=== PATIENT | female | born 1950 | race Caucasian/White ===

== ENCOUNTER → 2016-08-23 | Outpatient (CLI) | payer MEDICARE ==
[~2016-08-23] MED LIST: /DULO30CA OR; ATEN50TA2; CALCIUM WITH VIT D PO; CLAR5CHW PO; DICL0.1S7 TOP; GABA-282 PO; HYPOTHALAMUS PMG PO; LISI-542; MACR100C3 PO; MAGNESIUM LACTATE PO; MOTR200T4 PO; MULTIVIT PO; MULTIZYME PO; NORCOTAB PO; OMEGA 3 FISH OIL PO; SOMA250T OR; SYMB80AE INH; TYLE167L PO; VICO5TAB16 PO; VITACAP31 PO; VITAMIN B COMPLE1 PO; ZANA2CAP PO; [UNRECOGNIZED DRUG - CODE] PO; [UNRECOGNIZED DRUG - OTHER] PO; [UNRECOGNIZED DRUG - OTHER] PO; [UNRECOGNIZED DRUG - OTHER] PO; [UNRECOGNIZED DRUG - OTHER] PO
[2016-08-23 14:00] LABS: BASO # 0.1 K/mm3 (0.0-0.2); BASO % 1.2 % (0.0-1.0); EOS # 0.1 K/mm3 (0.0-0.50); EOS % 1.8 % (0.0-3.0); LARGE UNSTAINED CELL # 0.2 K/mm3 (0.0-0.4); LARGE UNSTAINED CELL % 2.9 % (0.0-4.0); LYMPH # 1.3 K/mm3 (1.5-4.5); LYMPH % 17.7 % (24.0-44.0); MEAN CORPUSCULAR HEMOGLOBIN 31.7 pg (27.0-33.0); MEAN CORPUSCULAR HGB CONC 32.4 g/dl (32.0-36.5); MEAN CORPUSCULAR VOLUME 97.9 fl (80.0-96.0); MONO # 0.4 K/mm3 (0.0-0.8); MONO % 5.8 % (0.0-5.0); NEUTROPHILS % 70.6 % (36.0-66.0); PLATELET COUNT, AUTOMATED 246 k/mm3 (150-450); RED CELL DISTRIBUTION WIDTH 14.3 % (11.5-14.5)
[2016-08-23 14:35] LABS: ANION GAP 9 MEQ/L (8-16); BLOOD UREA NITROGEN 20 MG/DL (7-18); CALCIUM LEVEL 9.6 MG/DL (8.8-10.2); CARBON DIOXIDE LEVEL 27 MEQ/L (21-32); CHLORIDE LEVEL 104 MEQ/L (98-107); CREATININE FOR GFR 0.91 MG/DL (0.55-1.02); GLOMERULAR FILTRATION RATE > 60.0 (>45); GLUCOSE, FASTING 85 MG/DL (80-110); POTASSIUM SERUM 4.9 MEQ/L (3.5-5.1); SODIUM LEVEL 140 MEQ/L (136-145)
== END ==
LOC: M SMT 11:01
PROVIDERS: ATTEND Podiatrist
DX: Z01.812 Encounter for preprocedural laboratory examination (principal); Z79.899 Other long term (current) drug therapy

== ENCOUNTER → 2016-09-05 | Outpatient (CLI) | payer MEDICARE ==
[~2016-09-05] MED LIST changes: +ALEV220C2 PO; -ATEN50TA2; +ATEN50TA2 PO; +B121000T PO; +CALC600T60 PO; +CLAR10CA3 PO; +FISH100049 PO; +GLUC1CAP9 PO; +IBUP-1114 PO; -MACR100C3 PO; +MACR100C43 PO; +MAGN400C2 PO; +MULTTAB24 PO; +OMEP40CA2 PO; +SYMB80INH INH; +VITA2000 PO; +VITA500C10 PO
--- NOTE | 2016-09-05 15:47 | REPMRS ---
Patient History The patient states she had a clinical breast exam in 09/2016. Patient is postmenopausal, has history of uterine cancer at age 25, and is nulliparous. No known family history of cancer. Took unspecified hormones for 25 years. Digital Woman Screen Mammo: September 05, 2016 - Exam #: [id number] Bilateral CC and MLO view(s) were taken. Technologist: Mary Jo Calvin, Technologist Prior study comparison: July 27, 2015, digital woman screen mammo performed at [facility] to [facility]. March 18, 2014, digital woman screen mammo performed at [place]. April 01, 2013, digital mammo diagnostic bilateral, performed at [facility]. FINDINGS: There are scattered fibroglandular densities. There is a moderate amount of residual fibroglandular tissue which is fairly symmetric. There is no interval development of dominant mass, architectural distortion, or clustered microcalcification typical of malignancy. There has been no change in the appearance of the mammogram from the prior studies. ASSESSMENT: BI-RADS/ACR category 1 mammogram. Negative. Recommendation Routine screening mammogram of both breasts in 1 year (for women over age 40). This mammogram was interpreted with the aid of an FDA-approved computer-aided dectection system. Electronically Signed By: Oscar Alicea MD 09/05/16 9917
== END ==
LOC: M WHC 11:01
PROVIDERS: ATTEND Nurse Practitioner Family
DX: Z12.31 Encounter for screening mammogram for malignant neoplasm of breast (principal); Z85.42 Personal history of malignant neoplasm of other parts of uterus; Z78.0 Asymptomatic menopausal state

== ENCOUNTER → 2016-09-13 | Outpatient (CLI) | payer MEDICARE ==
--- NOTE | 2016-09-13 13:22 | ECGEPIP ---
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 Electronically Signed On 09-13-2016 13:22:16 EDT by Alvarez Trujillo
== END ==
LOC: M EKG 08:25
PROVIDERS: ATTEND Anesthesiology
DX: Z01.810 Encounter for preprocedural cardiovascular examination (principal); I44.7 Left bundle-branch block, unspecified; R94.31 Abnormal electrocardiogram [ECG] [EKG]

== ENCOUNTER → 2016-09-14 | Day surgery (SDC) | payer MEDICARE ==
[~2016-09-14] VITALS: Ht 152.4 cm; Wt 83.5 kg
[~2016-09-14] MED LIST changes: +BACITRACIN PWD 50,000 UNITS VIAL As Ordered ONE; +BUPIVACAINE HCL 0.5% 30 ML VIAL As Ordered ONE; +LIDOCAINE 2% INJ 100 MG/5 ML SDV (FOR ANES.) As Ordered ONE; +LIDOCAINE 2% MDV 20 ML VIAL As Ordered ONE; +LR 1,000 ML IV ONE; +MIDAZOLAM INJ 2 MG/2 ML VIAL (J2250) As Ordered ONE; +NEOSPORIN GU IRRIG 20 ML VIAL As Ordered ONE; +PROPOFOL 200 MG/20 ML VIAL As Ordered ONE; +dexameTHASONE 4 MG/ML 1ML VIAL (J1100) As Ordered ONE; +fentaNYL 100 MCG/2 ML INJECTION (J3010) As Ordered ONE
--- NOTE | 2016-09-14 10:41 | REP ---
RIGHT FOOT, THREE VIEWS: HISTORY: Postop. The patient is status osteotomy of the first metatarsal. Two metal screws are present. There is no acute fracture or dislocation. There is narrowing of the first metatarsal phalangeal joint space. IMPRESSION: The patient is status post osteotomy of the first metatarsal. There is anatomic alignment. Signed by Vishnu Hutchinson MD 09/14/2016 10:57 A
[2016-09-14 11:10] VITALS: BP 168/74
--- NOTE | 2016-09-15 12:12 | RO ---
DATE OF PROCEDURE: 09/14/2016 PREPROCEDURE DIAGNOSIS: Hallux limitus deformity right foot. POSTPROCEDURE DIAGNOSIS: Hallux limitus deformity right foot. OPERATIVE PROCEDURES: 1. Cheilectomy first metatarsophalangeal joint, right foot. 2. Modified Hohmann osteotomy with internal screw fixation, 3.0 x 20 mm times two, right foot. SURGEON: Dr. Adbiel Alberto DPM TUBE REBUILDER: None. ANESTHESIA: Local MAC. IRRIGATION: Dilute bacitracin, neomycin and polymyxin B solution. HEMOSTASIS: Ankle pneumatic tourniquet at 250 mmHg for 46 minutes. DESCRIPTION OF PROCEDURE: On 09/14/2016, this 66-year-old white female was taken from her hospital room to the operating room and placed on the operating table in supine position. Following the induction of IV sedation and local and regional anesthesia, the right lower extremity was prepped and draped in the usual aseptic manner. Attention was directed to the patient's right foot where there is noted to be limited range of motion of the first metatarsophalangeal joint with an abrupt stop. At this time, the following procedure was performed: CHEILECTOMY FIRST METATARSOPHALANGEAL JOINT, RIGHT FOOT: Attention was directed to the patient's right foot where a 6 cm incision was placed over the metatarsophalangeal joint medial to the extensor tendon. The incision was deepened through subcutaneous tissues and all coursing venous tributaries were identified, underscored, clamped, cut, ligated and electrocoagulated as necessary. Linear capsulotomy was performed in the same plane as the original skin incision and the capsule and periosteal structures were then dissected free in one continuous layer dorsally, medially and laterally, thus creating a capsule and periosteal type envelope. This put into view the hypertrophied medial eminence of the first metatarsal and considerable spurring was noted on the dorsal aspect of the first metatarsal. Utilizing a power saw, proximal to dorsal 20% of the cartilage on the first metatarsal was osteotomized from distal to proximal. This left a 2 to 3 mm x 4 mm cystic erosion, which was microfractured with a 0.9 Halley wire. Since range of motion was still limited, the following procedure was performed: HOHMANN OSTEOTOMY WITH MODIFICATION WITH A MEDIAL WEDGE IN PLANTAR FLEXION: The first metatarsal was evaluated and a wedge shaped osteotomy was created, slightly more in the dorsal wing and more on the medial margin, thereby reducing the proximal articular set angle and allowing lowering of the first metatarsal segment. This was then fixated after lateral implant transposition with two 3.0 x 20 mm cannulated compression screws. The osteotomy was noted to be stable in all three cardinal planes. The redundant cortical spike was then osteotomized from dorsal to plantar through and through. Medial and dorsal surfaces were then rasped to a smooth contour with a hand held rasp. The wound was flushed with copious amounts of dilute bacitracin, neomycin and polymyxin B solution. Attention was directed towards closure where the capsular structures were coapted and maintained utilizing #2-0 Monocryl in a simple, interrupted type fashion. Subcutaneous tissues were coapted and maintained utilizing #4-0 Monocryl in simple interrupted type fashion. Skin incisions were coapted and maintained using #5-0 Monocryl in a continuous subcuticular type fashion. This was reinforced with Steri-Strips. Following the completion of the surgical procedure, 4 mg of dexamethasone sodium phosphate was instilled proximal to the surgical site. Attention was then directed towards bandaging where a sterile compression bandage was applied consisting of Adaptic, 4x4s, 4x4 splints, Shyam, Kerlix, and Coban. The ankle pneumatic tourniquet was rapidly deflated and instantaneous capillary filling time was noted in digits 1-5 of the patient's right foot. The patient, apparently having tolerated the surgical procedure well, was taken from the OR to the recovery room with vital signs stable, patient afebrile, for further monitoring by the anesthesia department. All surgical specimens removed during the operative procedure were sent to pathology for gross and microscopic examination. Postoperative instructions will be given upon discharge.
== END | disposition home or self-care (01) ==
LOC: M SDC 07:25
PROVIDERS: ATTEND Podiatrist
DX: M20.5X1 Other deformities of toe(s) (acquired), right foot (principal); M79.671 Pain in right foot; M20.21 Hallux rigidus, right foot; I10 Essential (primary) hypertension; J44.9 Chronic obstructive pulmonary disease, unspecified; J45.909 Unspecified asthma, uncomplicated; E78.5 Hyperlipidemia, unspecified; G57.93 Unspecified mononeuropathy of bilateral lower limbs; G47.33 Obstructive sleep apnea (adult) (pediatric); M19.90 Unspecified osteoarthritis, unspecified site; Z88.1 Allergy status to other antibiotic agents; Z87.891 Personal history of nicotine dependence; Z79.899 Other long term (current) drug therapy
CPT/HCPCS: 28296; 73630; 88300; C1776; J0690; J1100; J2250; J3010

== ENCOUNTER → 2017-05-02 | Outpatient (REF) | payer MEDICARE | LOC: M LAB REF 05-06 15:20 | DX: L08.9 Local infection of the skin and subcutaneous tissue, unspecified (principal) | CPT/HCPCS: 87186 ==

== ENCOUNTER → 2017-10-16 | Outpatient (CLI) | payer MEDICARE | LOC: M WHC 11:00 | DX: Z12.31 Encounter for screening mammogram for malignant neoplasm of breast (principal); N95.8 Other specified menopausal and perimenopausal disorders; Z78.0 Asymptomatic menopausal state; Z92.29 Personal history of other drug therapy | CPT/HCPCS: 77067 ==

== ENCOUNTER → 2018-04-25 | Outpatient (CLI) | payer MEDICARE ==
[~2018-04-25] MED LIST changes: -BACITRACIN PWD 50,000 UNITS VIAL As Ordered ONE; -BUPIVACAINE HCL 0.5% 30 ML VIAL As Ordered ONE; -GABA-282 PO; +GABA-843 PO; -LIDOCAINE 2% INJ 100 MG/5 ML SDV (FOR ANES.) As Ordered ONE; -LIDOCAINE 2% MDV 20 ML VIAL As Ordered ONE; -LR 1,000 ML IV ONE; -MIDAZOLAM INJ 2 MG/2 ML VIAL (J2250) As Ordered ONE; -NEOSPORIN GU IRRIG 20 ML VIAL As Ordered ONE; -PROPOFOL 200 MG/20 ML VIAL As Ordered ONE; -dexameTHASONE 4 MG/ML 1ML VIAL (J1100) As Ordered ONE; -fentaNYL 100 MCG/2 ML INJECTION (J3010) As Ordered ONE
--- NOTE | 2018-04-25 16:16 | REP ---
Low-dose lung screening CT: The study is performed without IV contrast. Images are presented at lung windowing only. There are curvilinear densities in the medial segment right middle lobe and in the lower lobes bilaterally compatible with parenchymal scarring. There is a 15 mm focal density in the deep posterior sulcus of the right lower lobe. No other nodules or masses are identified. Impression: The 15 mm density in the right lower lobe is a category 4A lesion. The probability of malignancy is 5-15%. 3-month follow-up low-dose lung screening CT is recommended. Electronically Signed by José Miguel Ledesma MD 04/25/2018 04:08 P
== END ==
LOC: M RAD 08:23
PROVIDERS: ATTEND Internal Medicine Pulmonary Disease
DX: Z87.891 Personal history of nicotine dependence (principal)

== ENCOUNTER → 2018-05-27 | Outpatient (CLI) | payer MEDICARE ==
--- NOTE | 2018-05-27 16:47 | REP ---
PET/CT: History: Diagnosing solitary pulmonary nodule. Comparisons: Chest CT April 25, 2018. TECHNIQUE: 74 minutes following the intravenous injection of a 8.7 mCi dose of F-18 FDG, three-dimensional PET scintigraphy is acquired from the skull base to the proximal thighs. Triplanar noncontrast CT scanning is acquired through the same anatomic range for attenuation correction, and image registration with scan parameters optimized to minimize radiation exposure to the patient. PET scintigraphy and CT datasets were fused and displayed on a workstation with multiplanar and projection display capability. PET/CT Findings: There is no abnormal hypermetabolic uptake in the chest. The area where previous CT study showed a ill-defined posterior lung sulcus right lower lobe density is medially adjacent to the liver. Maximum standard uptake value here is 2.4 which is not definitely hypermetabolic. No other abnormal hypermetabolic uptake is seen within the chest. No suspicious hypermetabolic uptake is seen in the head and neck soft tissues. There is some non hypermetabolic uptake associated with osteoarthritic facet disease in the cervical spine. In the abdomen and pelvis, normal hepatic, splenic, gastrointestinal, and genitourinary FDG accumulation is seen. There is a hypermetabolic focus of increased uptake in the soft tissue fullness in the region of the anus in the midline. Maximum standard uptake value here is 13.46. This should be correlated with physical examination findings. No other abnormal hypermetabolic uptake is seen. Impression: No abnormal hypermetabolic uptake in the chest. Continued CT follow-up is suggested for possible nodule right lower lobe. Incidental finding of soft tissue fullness and hypermetabolic uptake in the region of the anus. Correlation with physical exam findings recommended. Electronically Signed by Morro Alicea MD 05/27/2018 05:26 P
== END ==
LOC: M PLARAD 09:33
PROVIDERS: ATTEND Internal Medicine Pulmonary Disease
DX: R91.1 Solitary pulmonary nodule (principal); K62.89 Other specified diseases of anus and rectum
CPT/HCPCS: 78815; A9552

== ENCOUNTER → 2018-05-30 | Outpatient (CLI) | payer MEDICARE ==
--- NOTE | 2018-05-31 14:59 | ECHO ---
DATE OF SERVICE: 05/30/2018 REFERRING PROVIDER: Dr. Batres PATIENT LOCATION: Outpatient. REASON FOR THE ECHOCARDIOGRAM: Shortness of breath. 2D MEASUREMENTS: IVS: 1.2 cm LV: 4.2 cm LVPW: 1.2 cm LA: 3.9 cm Aorta: 2.4 cm IVC: 1.8 cm DOPPLER MEASUREMENTS: Peak velocity across the aortic valve: 1.5 m/s Peak velocity across the LVOT: 0.9 m/s Mitral E: 1.0 Mitral A: 1.2, with a ratio of 0.9 2D COMMENTS: 1. Normal left ventricular size, wall thickness, but left ventricular systolic function appeared to be depressed. The basal and the mid anterior septum seem to be markedly hypokinetic. The estimated global left ventricular systolic ejection fraction is 35-40%. 2. Subjectively, the left atrium appeared to be mildly enlarged. Normal right atrium. Normal right ventricle. There appeared to be mildly increased thickness of the left ventricular free wall. 3. The atrial septum appeared to be normal without evidence of defect or shunt. 4. Normal aortic root. 5. No pericardial effusion seen. 6. Minimally calcified aortic valve with normal leaflet excursion. Normal mitral valve, tricuspid valve. The pulmonic valve and proximal pulmonary artery branches were not well visualized. 7. The inferior vena cava was normal in size, central venous pressure is most likely normal. DOPPLER: It detects only trace mitral regurgitation. Abnormal relaxation pattern was noted across the mitral valve leaflets as well as the mitral valve annulus, consistent with delayed relaxation. IMPRESSION: 1. Moderately depressed global left ventricular systolic function with regional wall motion abnormalities consistent with ischemic cardiomyopathy. 2. There are features of left ventricular diastolic dysfunction manifested by abnormal relaxation. 3. Aortic valve sclerosis with trivial aortic stenosis but no aortic regurgitation. 4. Trace mitral regurgitation. Subjectively, the left atrium appeared to be mildly enlarged.
== END ==
LOC: M CARPUL 09:05
PROVIDERS: ATTEND Internal Medicine Pulmonary Disease
DX: R06.00 Dyspnea, unspecified (principal); I08.0 Rheumatic disorders of both mitral and aortic valves

== ENCOUNTER → 2018-08-20 | Outpatient (CLI) | payer MEDICARE ==
[~2018-08-20] MED LIST changes: -/DULO30CA OR; +CYMB1CAP5 OR; +HYDR-3715 PO; -NORCOTAB PO; -VICO5TAB16 PO; +VICO5TAB17 PO
--- NOTE | 2018-08-20 10:21 | REP ---
CT of the chest without IV contrast: Comparison is the low-dose lung screening CT dated 04/25/2018. On the comparison study there was a 15 mm focal density in the deep posterior sulcus of the right lower lobe. On the study today this 15 mm density has resolved and is no longer present. This is compatible with transient atelectasis. The curvilinear densities are again identified in the right middle lobe and in the lower lobes bilaterally compatible with parenchymal scarring. There are no other lung nodules or masses. There are no infiltrates or pleural effusions. There is no mediastinal or axillary lymph node enlargement. In the absence of IV contrast the study is insensitive for hilar lymph node enlargement. The thoracic aorta is unremarkable except for calcified atheroma. Cardiac size is normal. Within the visualized upper abdomen there is focal thickening of the left renal cortex anteriorly of uncertain significance in this study without IV contrast. Consider follow-up CT with IV contrast or ultrasound to evaluate for left renal mass. There are no adrenal mass is identified. Impression: The 15 ml focal density identified in the deep posterior sulcus of the right lower lobe on the comparison chest CT is no longer present. This is compatible with transient atelectasis. There is curvilinear parenchymal lung scarring in the middle lobe and in the lower lobes bilaterally, unchanged. There is focal thickening of the left renal cortex anteriorly, nonspecific as discussed above. Consider follow-up CT with IV contrast or ultrasound for further evaluation to determine if this is a renal mass. Electronically Signed by José Miguel Ledesma MD 08/20/2018 10:13 A
== END ==
LOC: M RAD 08:24
PROVIDERS: ATTEND Internal Medicine Pulmonary Disease
DX: R91.1 Solitary pulmonary nodule (principal)

== ENCOUNTER → 2018-10-06 | Outpatient (CLI) | payer MEDICARE ==
[2018-10-06 12:03] LABS: BLOOD UREA NITROGEN 18 MG/DL (7-18); CREATININE FOR GFR 0.92 MG/DL (0.55-1.30); GLOMERULAR FILTRATION RATE > 60.0 (>39)
== END ==
LOC: M LAB 10:37
PROVIDERS: ATTEND Internal Medicine Pulmonary Disease
DX: Z01.812 Encounter for preprocedural laboratory examination (principal)

== ENCOUNTER → 2018-10-07 | Outpatient (CLI) | payer MEDICARE ==
--- NOTE | 2018-10-07 15:16 | REP ---
REASON FOR THIS EXAM: Prior chest CT shows thickening of the left renal cortex for which this examination was performed in followup. The lack of intravenous contrast significantly decreases the sensitivity of the examination, particularly when assessing for renal malignancies. The lung bases are unchanged from the chest CT of 08/20/2018. Limited evaluation of the solid intra-abdominal organs and gallbladder show no gross abnormalities. Limited evaluation of the pancreas and adrenal glands show no gross abnormalities. Limited evaluation of the kidneys shows a calcification in the interpolar region of the left kidney. There is mild bilateral perinephric stranding, which is nonspecific. There is no hydronephrosis. Limited evaluation of the bowel loops and their mesenteries show no gross abnormalities. There is no free fluid or free air. Limited evaluation of the abdominal aorta and paraaortic regions show no gross abnormalities. CT PELVIS: There is no mass or adenopathy. There is no free fluid or free air. The bowel loops are unremarkable. Bone window technique throughout the exam shows the osseous structures to be within normal limits for the patient's age. IMPRESSION: Limited examination with findings as described above. If a renal lesion is of clinical concern, then a contrast-enhanced examination is recommended. Electronically Signed by Perfecto Santiago DO 10/07/2018 04:14 P
== END ==
LOC: M RAD 13:53
PROVIDERS: ATTEND Internal Medicine Pulmonary Disease
DX: R93.89 Abnormal findings on diagnostic imaging of other specified body structures (principal)

== ENCOUNTER → 2018-10-13 | Outpatient (CLI) | payer MEDICARE ==
[~2018-10-13] MED LIST changes: +GASTROGRAFIN SOLUTION 30ML (Q9963) As Ordered ONE; +ISOVUE-370 76% 100ML VIAL (Q9967) As Ordered ONE
--- NOTE | 2018-10-14 07:42 | REP ---
REASON FOR EXAM: Assess for possible renal lesion. PRIOR: Noncontrast enhanced limited examination of 10/07/2018 was reviewed. Today's examination was performed after the intravenous administration of 100 mL of Isovue 370 along with delayed imaging. There is no change in the lung bases. The liver, gallbladder, spleen, pancreas, adrenal glands, and right kidney are unremarkable. In the interpolar region of the left kidney there is a small 3 to 4 mm sized calculus which is not causing obstructive phenomena and is unchanged from the prior exam. There is minimal anterior nephric stranding on the left and there is a single millimeter sized focal area of decreased density in the inferior pole left renal cortex too small for CT characterization but likely a tiny renal cortical cyst. There are no enhancing renal masses. There is no hydronephrosis or hydroureter. The abdominal aorta and paraaortic regions are within normal limits. There is no free fluid or free air in the abdomen. The bowel loops and their mesenteries are within normal limits. CT PELVIS: There is evidence of a tiny urachal remnant. The urinary bladder is otherwise unremarkable. There are bilateral pelvic phleboliths. There is no free fluid or free air. There is no pelvic mass or adenopathy. Bone window technique throughout the exam show chronic osseous changes with spinal degenerative changes and previous posterior spinal fixation along with bone demineralization. IMPRESSION: There is minimal left anterior perinephric fatty infiltration likely the result of chronic change. There is no evidence of a renal mass. There is a tiny nonobstructing left nephrolith as described above. Incidental likely tiny urachal remnant as described above. No evidence of acute intra-abdominal or intrapelvic disease with other findings as described above. Electronically Signed by Perfecto Santiago DO 10/14/2018 12:00 P
== END ==
LOC: M RAD 13:58
PROVIDERS: ATTEND Internal Medicine Pulmonary Disease
DX: N20.0 Calculus of kidney (principal); R93.89 Abnormal findings on diagnostic imaging of other specified body structures
CPT/HCPCS: 74178; Q9963; Q9967

== ENCOUNTER → 2018-11-11 | Outpatient (CLI) | payer MEDICARE ==
[~2018-11-11] MED LIST changes: +ACET-907 PO; +ALDA25TA2 PO; +ALEV220T22 PO; +ALLE180T33 PO; +ASCO50TA PO; +ATOR1TAB21 PO; +ATOR40TA75 PO; +C 50TAB PO; +CARV12.5 PO; +CARV25TA PO; +CHOL100029 PO; +CLONI1TA PO; +COLA100C5 PO; +CYCL10TA PO; +CYMB1CAP5 PO; +DULO30CA9 PO; +FEXO60CA PO; +FURO40TA2 PO; -GASTROGRAFIN SOLUTION 30ML (Q9963) As Ordered ONE; +GLUCCAP4 PO; +HYDR10TAB PO; -ISOVUE-370 76% 100ML VIAL (Q9967) As Ordered ONE; +LIDO5TD TOP; +LOVE1INJ SC; +MELO15TA28 PO; +OMEP-218 PO; +OMEP1CAP73 PO; -OMEP40CA2 PO; +OMEP40CA97 PO; +OXYC-517 PO; +OYST1TAB PO; +SENN8.6T58 PO; +SM HTAB3 PO; +SPIR-10 PO; +TIZA4TAB4 PO; +TRAM50TA2 PO; +VITA100066 PO
--- NOTE | 2018-11-11 13:56 | REPMRS ---
Patient History The patient states she had a clinical breast exam in 11/2018. Patient is postmenopausal, has history of endometrial cancer at age 25, and is nulliparous. No known family history of cancer. Took unspecified hormones for 25 years. 3D TOMOSYNTHESIS WAS PERFORMED. The [facility] lifetime risk for breast cancer is 4.5%. Digital Woman Screen Mammo: November 11, 2018 - Exam #: [id number] Bilateral CC and MLO view(s) were taken. Technologist: Mary Jo Calvin, Technologist Prior study comparison: October 16, 2017, bilateral digital woman screen mammo performed at [facility]. September 05, 2016, digital woman screen mammo performed at [facility]. FINDINGS: There are scattered fibroglandular densities. There has been no change in the appearance of the mammogram from the prior studies. There is a mild amount of residual fibroglandular tissue which is fairly symmetric. There is no interval development of dominant mass, architectural distortion, or clustered microcalcification suggestive of malignancy. Assessment: BI-RADS/ACR category 1 mammogram. Negative Mammogram. Recommendation Routine screening mammogram in 1 year (for women over age 40). This mammogram was interpreted with the aid of an FDA-approved computer-aided dectection system. Electronically Signed By: José Miguel Landin MD 11/11/18 [id number]
== END ==
LOC: M WHC 10:41
PROVIDERS: ATTEND Nurse Practitioner Family
DX: Z12.31 Encounter for screening mammogram for malignant neoplasm of breast (principal); Z78.0 Asymptomatic menopausal state; Z85.44 Personal history of malignant neoplasm of other female genital organs; Z92.29 Personal history of other drug therapy

== ENCOUNTER 2018-11-19 12:56 | Day surgery (SDC) | payer MEDICARE ==
[~2018-11-19] VITALS: Ht 152.4 cm; Wt 84.3 kg
[~2018-11-19 12:56] MED LIST changes: -ACET-907 PO; -ALDA25TA2 PO; -ASCO50TA PO; -ATOR1TAB21 PO; -C 50TAB PO; -CARV12.5 PO; -CHOL100029 PO; -COLA100C5 PO; -CYMB1CAP5 PO; -FEXO60CA PO; -LIDO5TD TOP; -LOVE1INJ SC; -MELO15TA28 PO; +NS 1,000 ML IV SCH; -OMEP-218 PO; -OMEP1CAP73 PO; +OMEP20CA4 PO; +OMEP40CA2 PO; -OMEP40CA97 PO; -OXYC-517 PO; -OYST1TAB PO; -SENN8.6T58 PO; -SPIR-10 PO; -TIZA4TAB4 PO; -TRAM50TA2 PO; -VITA100066 PO
[2018-11-19] MEDS ORDERED: LIDOCAINE 2% INJ 100 MG/5 ML SDV (FOR ANES.) As Ordered ONE (15:09)
[2018-11-19] MEDS ORDERED: PROPOFOL 200 MG/20 ML VIAL As Ordered ONE (15:09)
--- NOTE | 2018-11-19 15:20 | ROOR ---
Patient Name: Mariah Brito Procedure Date: 11/19/2018 3:01 PM Date of : 1950 Age: 68 Room: [facility] Gender: Female Note Status: Finalized Procedure: Total Colonoscopy to Cecum Indications: Abnormal PET scan of the GI tract Providers: Jamie Roman MD Referring MD: Enoc Carmona MD Requesting Provider: Medicines: Monitored Anesthesia Care Complications: No immediate complications. Procedure: Pre-Anesthesia Assessment: - The heart rate, respiratory rate, oxygen saturations, blood pressure, adequacy of pulmonary ventilation, and response to care were monitored throughout the procedure. The Colonoscope was introduced through the anus and advanced to the cecum, identified by appendiceal orifice and ileocecal valve. The colonoscopy was performed without difficulty. The patient tolerated the procedure well. The quality of the bowel preparation was excellent. Findings: The perianal and digital rectal examinations were normal. Non-bleeding internal hemorrhoids were found during retroflexion. The hemorrhoids were small and Grade I (internal hemorrhoids that do not prolapse). No other significant abnormalities were identified in a careful examination of the remainder of the colon. The exam was otherwise without abnormality. A single (solitary) ulcer was found at the ileocecal valve. No bleeding was present. Impression: - Non-bleeding internal hemorrhoids. - The examination was otherwise normal. - A single (solitary) ulcer at the ileocecal valve. - No specimens collected. - The exam was otherwise normal to the cecum. Recommendation: - Patient has a contact number available for emergencies. The signs and symptoms of potential delayed complications were discussed with the patient. Return to normal activities tomorrow. Written discharge instructions were provided to the patient. - High fiber diet. - Discharge patient to home. - Continue present medications. - Repeat colonoscopy for symptoms only. - Return to referring physician. - The findings and recommendations were discussed with the patient's family. Jamie Roman MD Jamie Roman MD 11/19/2018 3:19:37 PM Electronically signed by Jamie Roman MD Number of Addenda: 0 Note Initiated On: 11/19/2018 3:01 PM Estimated Blood Loss: Estimated blood loss: none.
[2018-11-19 15:40] VITALS: BP 187/104
[2018-11-19] MEDS ORDERED: DESFLURANE 240 ML INHALANT As Ordered ONE (21:52)
== END 2018-11-19 15:54 | disposition home or self-care (01) ==
LOC: M OPP 12:56
PROVIDERS: ATTEND Internal Medicine Gastroenterology
DX: K64.0 First degree hemorrhoids (principal); K63.3 Ulcer of intestine; F17.210 Nicotine dependence, cigarettes, uncomplicated; Z79.899 Other long term (current) drug therapy; Z88.0 Allergy status to penicillin; Z88.8 Allergy status to other drugs, medicaments and biological substances

== ENCOUNTER 2019-02-11 13:41 | Inpatient (IN) | payer MEDICARE ==
[~2019-02-11] VITALS: Ht 142.2 cm; Wt 83.0 kg
[2019-02-11] MEDS: DULoxetine 30 MG CAP (CYMBALTA) PO SCH (09:00)
[~2019-02-11 13:41] MED LIST changes: -NS 1,000 ML IV SCH; +OMEP-172 PO; -OMEP20CA4 PO; -OMEP40CA2 PO; +OMEP40CA97 PO
[2019-02-11 15:00] VITALS: BP 135/58
[2019-02-11] MEDS ORDERED: oxyCODONE 5MG TAB As Ordered ONE (15:10)
[2019-02-11] MEDS ORDERED: oxyCODONE 5MG TAB PO ONE (16:00)
[2019-02-11] MEDS ORDERED: traMADol 50 MG TAB PO ONE (16:45)
[2019-02-11] MEDS ORDERED: traMADol 50 MG TAB PO PRN (16:45)
[2019-02-11] MEDS ORDERED: MOM 30ML SUSPENSION UDC PO PRN (16:45)
[2019-02-11] MEDS ORDERED: ONDANSETRON 4 MG TAB (S0181) PO PRN (16:45)
[2019-02-11] MEDS ORDERED: SPIR-10 PO (16:58)
[2019-02-11] MEDS ORDERED: OYST1TAB PO (16:58)
[2019-02-11] MEDS ORDERED: VITA100066 PO (16:58)
[2019-02-11] MEDS ORDERED: LIDO5TD TOP (16:58)
[2019-02-11] MEDS ORDERED: ACET-907 PO (16:58)
[2019-02-11] MEDS ORDERED: LOVE1INJ SC (16:58)
[2019-02-11] MEDS ORDERED: SENN8.6T58 PO (16:58)
[2019-02-11] MEDS ORDERED: OXYC-517 PO (16:58)
[2019-02-11] MEDS ORDERED: MELO15TA28 PO (16:58)
[2019-02-11] MEDS ORDERED: COLA100C5 PO (16:58)
[2019-02-11] MEDS ORDERED: C 50TAB PO (16:58)
[2019-02-11] MEDS: traMADol 50 MG TAB PO SCH (17:00)
[2019-02-11] MEDS: tiZANidine 4 MG TAB PO SCH ×2 (18:42→21:46)
[2019-02-11] MEDS ORDERED: PILL CUTTER 1 EACH XX PRN (19:00)
[2019-02-11] MEDS: SENNA 8.6 MG TAB (SENOKOT) PO SCH (21:00)
[2019-02-11] MEDS: DOCUSATE SODIUM 100 MG CAP PO SCH (21:00)
[2019-02-11] MEDS: **hydrALAZINE** 10 MG TAB PO SCH (21:46)
[2019-02-11] MEDS: GABAPENTIN 300 MG CAP PO SCH (21:46)
[2019-02-11] MEDS: CARVedilol 12.5 MG TAB PO SCH (21:46)
[2019-02-11] MEDS: ACETAMINOPHEN 500 MG TAB PO SCH (21:47)
[2019-02-12 05:50] VITALS: BP 176/74
[2019-02-12] MEDS: traMADol 50 MG TAB PO SCH ×3 (06:14→17:12)
[2019-02-12] MEDS: tiZANidine 4 MG TAB PO SCH ×4 (06:14→20:31)
[2019-02-12 06:48] LABS: BASO % 0.4 % (0.0-1.0); EOS # 0.1 10^3/uL (0.0-0.5); EOS % 1.4 % (0.0-3.0); HEMATOCRIT 28.6 % (36.0-47.0); HEMOGLOBIN 9.4 g/dl (12.0-15.5); LYMPH % 11.4 % (24.0-44.0); MEAN CORPUSCULAR HEMOGLOBIN 29.9 pg (27.0-33.0); MEAN CORPUSCULAR HGB CONC 32.9 g/dl (32.0-36.5); MEAN CORPUSCULAR VOLUME 91.1 fl (80.0-96.0); MONO # 0.9 10^3/uL (0.0-0.8); MONO % 10.9 % (0.0-5.0); NEUTROPHILS # 6.5 10^3/uL (1.5-8.5); NEUTROPHILS % 75.7 % (36.0-66.0); PLATELET COUNT, AUTOMATED 244 10^3/uL (150-450); RED BLOOD COUNT 3.14 10^6/uL (4.00-5.40); WHITE BLOOD COUNT 8.6 10^3/uL (4.0-10.0)
[2019-02-12 07:13] LABS: ALBUMIN 2.5 GM/DL (3.2-5.2); ALT/SGPT 15 U/L (12-78); BILIRUBIN,TOTAL 0.4 MG/DL (0.2-1.0); BLOOD UREA NITROGEN 8 MG/DL (7-18); CALCIUM LEVEL 8.8 MG/DL (8.8-10.2); CARBON DIOXIDE LEVEL 30 MEQ/L (21-32); CHLORIDE LEVEL 99 MEQ/L (98-107); CREATININE FOR GFR 0.62 MG/DL (0.55-1.30); GLOMERULAR FILTRATION RATE > 60.0 (>39); GLUCOSE, FASTING 85 MG/DL (70-100); POTASSIUM SERUM 3.6 MEQ/L (3.5-5.1); SODIUM LEVEL 137 MEQ/L (136-145); TOTAL PROTEIN 7.1 GM/DL (6.4-8.2)
[2019-02-12] MEDS: VITAMIN D 1,000 INTERNATIONAL UNITS TABLET PO SCH (09:31)
[2019-02-12] MEDS: FUROSEMIDE 40 MG TAB PO SCH (09:31)
[2019-02-12] MEDS: ACETAMINOPHEN 500 MG TAB PO SCH ×3 (09:31→20:32)
[2019-02-12] MEDS: ENOXAPARIN 40 MG/0.4 ML SYRINGE (J1650) SC SCH (09:31)
[2019-02-12] MEDS: GABAPENTIN 300 MG CAP PO SCH ×3 (09:32→20:32)
[2019-02-12] MEDS: DOCUSATE SODIUM 100 MG CAP PO SCH ×2 (09:32→20:04)
[2019-02-12] MEDS: MULTIVITAMINS/MINERALS THERAP 1 TAB PO SCH (09:32)
[2019-02-12] MEDS: FEXOFENADINE 60 MG TAB PO SCH (09:32)
[2019-02-12] MEDS: ASCORBIC ACID 500 MG TAB PO SCH (09:32)
[2019-02-12] MEDS: **hydrALAZINE** 10 MG TAB PO SCH ×3 (09:32→20:32)
[2019-02-12] MEDS: OMEPRAZOLE 20 MG CAP PO SCH (09:33)
[2019-02-12] MEDS: CARVedilol 12.5 MG TAB PO SCH ×2 (09:33→20:32)
[2019-02-12] MEDS: SPIRONOLACTONE 25 MG TAB PO SCH (09:33)
[2019-02-12] MEDS: ATORVASTATIN 20 MG TAB PO SCH (09:33)
[2019-02-12] MEDS: DULoxetine 30 MG CAP (CYMBALTA) PO SCH (09:33)
--- NOTE | 2019-02-12 11:40 | HPEPDOC ---
Screedman/Laborer Note DATE OF ADMISSION: 02/11/19 date of service 02-11-19 SOURCE OF ADMISSION INFORMATION: [facility] records and patient CHIEF COMPLAINT: spinal stenosis HISTORY OF PRESENT ILLNESS: 68F pmh chronic low back pain with neurogenic claudication s/p multi-level lumbar interspinous spacers placed 2011, CHF, HLD, HTN, Uterine cancer, VICKY on CPAP, COPD, CAD with worsening weakness in her legs and pain, admitted to [facility] on 02-06-19 for spinal stenosis. MRI underwent an L1-S1 decompression and fusion on 02-06-19. Patient had post-op anemia and difficulty managing her pain. Wound vac was initially placed on her incision then changed to gauze dressing. She was evaluated by therapy and found to have impairments in mobility and ADLs and deemed medically appropriate for discharge to ARU on 02-11-19. On initial eval patient reports her radiating leg pain is better since the surgery and that she is mostly having low back and upper thigh spasms now. She reports a burning with urination. REVIEW OF SYSTEMS: The following is a completed review of systems and has been reviewed. Review of systems otherwise unremarkable. PAIN: Patient self reports bilat upper thigh spasms EYES: No recent vision changes EARS, NOSE, & THROAT: No throat pain, or dysphagia, or rhinorrhea CARDIOVASCULAR: Denies chest pain or palpitations PULMONARY: Denies shortness of breath GASTROINTESTINAL: Denies constipation/diarrhea GENITOURINARY: +dysuria MUSCULOSKELETAL: bilat LE pain NEUROLOGICAL:neurogenic claudication (chronic) HEMATOLOGICAL: denies easy bruising SKIN: surgical incision PSYCHIATRIC: Unremarkable All other review of systems found to be negative. PAST MEDICAL HISTORY: as per HPI PAST SURGICAL HISTORY: Bilateral foot surgery, oophorectomy, hysterectomy, tonsillectomy, carpal tunnel ALLERGIES: Please see below. MEDICATIONS: Please see below. FAMILY HISTORY: Cardiac, stroke, COPD, cancer SOCIAL HISTORY: Quit smoking 3 years ago, +ETOH use, denies illicit dugs DIET: consistent carb, low salt, fluid restrict PHYSICAL EXAMINATION: VITAL SIGNS: Please see below. GENERAL: Pleasant and cooperative. No acute distress. obese HEENT: PERRL. Extraocular movements intact. Clear conjunctiva CARDIOVASCULAR: Regular rate and rhythm. No murmurs, rubs, or gallops LUNGS: Clear to auscultation bilaterally. No wheezes. No rhonchi ABDOMEN: Soft, nontender, nondistended. Positive bowel sounds. Normal active bowel sounds NEUROLOGICAL: Alert and oriented times three. Cranial nerves II through XII grossly intact. Sensation grossly intact in all 4 extremities, decrease in se nsation bilat lateral upper thighs EXTREMITIES: 5\5 strength bilateral upper extremities. 5\5 strength right knee extension, ankle DF. EHL,a nd PF (hip flexion >3/5 limited by pain). 5/5 strength in left knee extension, ankle DF. EHL, and PF (hip flexion >3/5 limited by pain). SKIN: back surgical incision with dressing, fely-wound without induration or erythema LABORATORY DATA: Please see below. IMAGING:Imaging documentation personally reviewed by record FUNCTIONAL STATUS: Premorbid: Independent with all activities of daily life as well as mobility without AD occasional cane for community distances On Admission: Mod assistance for bathing, upper body dressing, bed chair and wheelchair transfers, toilet transfers, ambulation. GOALS:Mod-I for ambulation community distance, stairs, functional transfers, dressing, bathing, toileting, medical optimization, caregiver training, assess for DME needs ASSESSMENT:68-year-old F with past medical history of chronic low back pain, CHF, obesity who presents status post L1-S1 decompression and fusion. PLAN: 1. Rehab- PT- advance gait training, maintain spinal precautions, OT- advance ADL, provide adaptive equipment for spinal precautions, energy conservation 2. Neuro: no active issues 3. CArdiac: hx CHF, c/u lasix and spironolactone, will fluid restrict to 1800cc -HTN c/u beta-gold and hydralazine, medicine consulted to assist in management -HLD c/u statin 4. Resp: hx VICKY on CPAP, hx COPD will order DUonebs prn, encourage incentive spirometry 5. Pain: will increase Cymbalta to 60mg daily, tramadol, and tizanidine -c/u gabapentin 6. : monitor PVRs, will order UA as patient with dysuria 7. GI ppx: omeprazole 8. DVT ppx: lovenox 9. Dispo: TBD POST ADMISSION PHYSICIAN EVALUATION: Medical and functional status: Description of medical status, medical assessment: As above. Rehabilitation diagnosis and current and prior cold morbid medical conditions as above. Risk of complications and plans to mitigate them as above. Description of functional status current status is as above. Prior status as above. Status compared to preadmission: There are no clinically significant differences between the patient's current status and the information described on the preadmission screening document. Treatment plan anticipated: Treatment plan is as described above. Required disciplines including physical therapy, occupational therapy, others as noted above Intensity of services: 3 hours a day, 6 days a week. Special considerations: There are no specific special or safety considerations that would likely preclude immediate implementation of an intensive rehabilitation program or subsequently influence the plan of care ATTESTATION: Considering all the information above, it is my best judgment that this patient requires intensive rehabilitation therapy as described above and an inpatient hospital environment due to the complexity of nursing, medical, and rehabilitation needs required by the patient. Furthermore, this patient can reas onably be expected to participate in an benefit from an inpatient rehabilitation stay with an interdisciplinary team approach to the delivery of rehabilitation care under the direction and supervision of rehabilitation physician PROGNOSIS: Excellent ESTIMATED LENGTH OF STAY:14-18 ays. PROJECTED DISCHARGE DESTINATION: Home with family support and any durable medical equipment required to increase functional safety and mobility TIME SPENT COUNSELING AND COORDINATING INITIAL CARE: Greater than 70 minutes. Vital Signs Vital Sign - Last 24 Hours 02/11/19 02/11/19 02/11/19 02/11/19 15:00 15:15 15:45 17:00 Temp 97.8 Pulse 100 Resp 18 20 18 18 B/P (MAP) 135/58 (83) Pulse Ox 92 O2 Delivery Room Air Room Air Room Air Room Air 02/11/19 02/11/19 02/12/19 02/12/19 17:21 21:46 05:50 06:14 Temp 98.0 Pulse 95 86 Resp 18 18 18 B/P (MAP) 146/65 176/74 (108) Pulse Ox 95 O2 Delivery Room Air Room Air 02/12/19 02/12/19 02/12/19 09:32 09:33 11:05 Pulse 86 Resp 18 B/P (MAP) 176/74 176/74 Laboratory Data CBC/BMP Laboratory Tests 02/12/19 06:31 Labs 24H Laboratory Tests 2 02/12/19 06:31: Immature Granulocyte % (Auto) 0.2, Neutrophils (%) (Auto) 75.7H, Lymphocytes (%) (Auto) 11.4L, Monocytes (%) (Auto) 10.9H, Eosinophils (%) (Auto) 1.4, Basophils (%) (Auto) 0.4, Neutrophils # (Auto) 6.5, Lymphocytes # (Auto) 1.0L, Monocytes # (Auto) 0.9H, Eosinophils # (Auto) 0.1, Basophils # (Auto) 0.0, Nucleated Red Blo od Cells % (auto) 0.0, Anion Gap 8, Glomerular Filtration Rate > 60.0, Calcium Level 8.8, Total Bilirubin 0.4, Aspartate Amino Transf (AST/SGOT) 30, Alanine Aminotransferase (ALT/SGPT) 15, Alkaline Phosphatase 97, Total Protein 7.1, Albumin 2.5L, Albumin/Globulin Ratio 0.54L Home Medications Scheduled Ascorbic Acid (Vitamin C) 500 Mg Tablet, 500 MG PO DAILY, (Reported) Atorvastatin Calcium (Atorvastatin Calcium) 40 Mg Tablet, 40 MG PO DAILY, (Reported) Calcium Carbonate (Calcium) 500 Mg Tablet, 500 MG PO BID, (Reported) Carvedilol (Carvedilol) 25 Mg Tablet, 25 MG PO BID, (Reported) Cholecalciferol (Vitamin D3) (Vitamin D3) 1,000 Unit Tablet, 1,000 UNIT PO DAILY, (Reported) Docusate Sodium (Colace) 100 Mg Capsule, 100 MG PO BID, (Reported) STARTED AT [facility] Duloxetine Hcl (Duloxetine HCl) 30 Mg Capsule.dr, 30 MG PO QHS, (Reported) Enoxaparin Sodium (Lovenox) 40 Mg/0.4 Ml Syringe, 40 MG SC DAILY, (Reported) STARTED AT [facility] Fexofenadine HCl (Joseline Allergy) 180 Mg Tablet, 180 MG PO DAILY, (Reported) Furosemide (Furosemide) 40 Mg Tablet, 40 MG PO DAILY, (Reported) Gabapentin (Gabapentin) 300 Mg Capsule, 300 MG PO TID, (Reported) Glucosam/Chond/Collagen/Hyalur (Glucosamine Chondroitin Cap) 1 Each Capsule, 2 CAP PO DAILY, (Reported) Hydralazine HCl (Hydralazine HCl) 10 Mg Tablet, 10 MG PO TID, (Reported) Lidocaine (Lidocaine) 5% Adh..patch, 1 PATCH TOP QPM, (Reported) STARTED AT [facility] - APPLY TO BACK Meloxicam (Meloxicam) 15 Mg Tablet, 15 MG PO DAILY, (Reported) Multivitamin with Minerals (Hair, Skin and Nails) 1 Each Tablet, 4 TAB PO DAILY, (Reported) Mv,Calcium,Min/Iron/Folic/Vitk (Multi For Her Tablet) 1 Tab Tab, 1 TAB PO QAM, (Reported) Omeprazole (Omeprazole) 20 Mg Capsule.dr, 20 MG PO DAILY, (Reported) Spironolactone (Spironolactone) 25 Mg Tablet, 25 MG PO DAILY, (Reported) Scheduled PRN Acetaminophen (Tylenol) 325 Mg Tablet, 650 MG PO Q6H PRN for PAIN, (Reported) Cyclobenzaprine HCl (Cyclobenzaprine HCl) 10 Mg Tablet, 10 MG PO TID PRN for MUSCLE SPASMS, (Reported) Naproxen Sodium (Aleve) 220 Mg Tablet, 220 MG PO PRN PRN for PAIN, (Reported) Oxycodone HCl (Oxycodone HCl) 5 Mg Tablet, 5 MG PO Q4H PRN for MILD PAIN (PS 1- 4), (Reported) STARTED AT [facility] Oxycodone HCl (Oxycodone HCl) 5 Mg Tablet, 10 MG PO Q4H PRN for SEVERE PAIN (PS 8-10), (Reported) STARTED AT [facility] Sennosides (Senna) 8.6 Mg Tablet, 2 TAB PO QHS PRN for CONSTIPATION, (Reported) STARTED AT [facility] Allergies Coded Allergies: erythromycin base (Verified Allergy, Severe, ANAPHYLAXIS, 11/12/18) MARY LOU Inhibitors (Verified Allergy, Unknown, WAS TOLD BY HER MATERIAL PLANNER THIS IS RELATED TO ERYTHROMYCIN, 02/11/19) isosorbide (Verified Adverse Reaction, Mild, headache, 11/12/18) A-FIB/CHADSVASC A-FIB History Current/History of A-Fib/PAF?: No GENA BERMUDEZ MD Feb 12, 2019 11:40
--- NOTE | 2019-02-12 11:41 | IPNPDOC ---
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 REVIEW OF SYSTEMS: The following is a completed review of systems and has been reviewed. Review of systems otherwise unremarkable. PAIN: Patient self reports bilat upper thigh spasms EYES: No recent vision changes EARS, NOSE, & THROAT: No throat pain, or dysphagia, or rhinorrhea CARDIOVASCULAR: Denies chest pain or palpitations PULMONARY: Denies shortness of breath GASTROINTESTINAL: Denies constipation/diarrhea GENITOURINARY: +dysuria MUSCULOSKELETAL: bilat LE pain NEUROLOGICAL:neurogenic claudication (chronic) HEMATOLOGICAL: denies easy bruising SKIN: surgical incision PSYCHIATRIC: Unremarkable All other review of systems found to be negative. PHYSICAL EXAMINATION: VITAL SIGNS: Please see below. GENERAL: Pleasant and cooperative. No acute distress. obese HEENT: PERRL. Extraocular movements intact. Clear conjunctiva CARDIOVASCULAR: Regular rate and rhythm. No murmurs, rubs, or gallops LUNGS: Clear to auscultation bilaterally. No wheezes. No rhonchi ABDOMEN: Soft, nontender, nondistended. Positive bowel sounds. Normal active bowel sounds NEUROLOGICAL: Alert and oriented times three. Cranial nerves II through XII grossly intact. Sensation grossly intact in all 4 extremities, decrease in sensation bilat lateral upper thighs EXTREMITIES: 5\5 strength bilateral upper extremities. 5\5 strength right knee extension, ankle DF. EHL,a nd PF (hip flexion >3/5 limited by pain). 5/5 strength in left knee extension, ankle DF. EHL, and PF (hip flexion >3/5 limited by pain). SKIN: back surgical incision with dressing, fely-wound without induration or erythema ASSESSMENT:68-year-old F with past medical history of chronic low back pain, CHF, obesity who presents status post L1-S1 decompression and fusion. PLAN: 1. Rehab- PT- advance gait training, maintain spinal precautions, ambulating with RW OT- advance ADL, provide adaptive equipment for spinal precautions, energy conservation 2. Neuro: no active issues 3. CArdiac: hx CHF, c/u lasix and spironolactone, c/u restrict to 1800cc -HTN c/u beta-gold and hydralazine, medicine consulted to assist in management -HLD c/u statin 4. Resp: hx VICKY on CPAP, hx COPD -DUonebs prn, encourage incentive spirometry 5. Pain: increased Cymbalta to 60mg daily, c/u tramadol, and tizanidine -c/u gabapentin 6. : monitor PVRs, UA pending collection 7. GI ppx: omeprazole 8. DVT ppx: lovenox 9. Dispo: tentatively 02-20-19 to home Allergies Coded Allergies: erythromycin base (Verified Allergy, Severe, ANAPHYLAXIS, 11/12/18) MARY LOU Inhibitors (Verified Allergy, Unknown, WAS TOLD BY HER ACREAGE REPORTER THIS IS RELATED TO ERYTHROMYCIN, 02/11/19) isosorbide (Verified Adverse Reaction, Mild, headache, 11/12/18) Vital Signs Vital Signs Date Time Temp Pulse Resp B/P (MAP) Pulse Ox O2 Delivery O2 Flow Rate FiO2 02/12/19 11:05 18 02/12/19 09:33 86 176/74 02/12/19 05:50 98.0 95 Room Air Laboratory Data CBC/BMP Laboratory Tests 02/12/19 06:31 Labs 24H Laboratory Tests 2 02/12/19 06:31: Immature Granulocyte % (Auto) 0.2, Neutrophils (%) (Auto) 75.7H, Lymphocytes (%) (Auto) 11.4L, Monocytes (%) (Auto) 10.9H, Eosinophils (%) (Auto) 1.4, Basophils (%) (Auto) 0.4, Neutrophils # (Auto) 6.5, Lymphocytes # (Auto) 1.0L, Monocytes # (Auto) 0.9H, Eosinophils # (Auto) 0.1, Basophils # (Auto) 0.0, Nucleated Red Blood Cells % (auto) 0.0, Anion Gap 8, Glomerular Filtration Rate > 60.0, Calcium Level 8.8, Total Bilirubin 0.4, Aspartate Amino Transf (AST/SGOT) 30, Alanine Aminotransferase (ALT/SGPT) 15, Alkaline Phosphatase 97, Total Protein 7.1, Albumin 2.5L, Albumin/Globulin Ratio 0.54L Current Medications Current Medications Current Medications Medications (Trade) Dose Ordered Sig/Barbara Route PRN Reason Start Time Stop Time Status Last Admin Dose Admin Acetaminophen (Tylenol Tab) 1,000 mg TID PO 02/11/19 21:00 02/12/19 09:31 Ascorbic Acid (Vitamin C) 1,000 mg DAILY PO 02/12/19 09:00 02/12/19 09:32 Atorvastatin Calcium (Lipitor) 40 mg DAILY PO 02/12/19 09:00 02/12/19 09:33 Carvedilol (COReg) 25 mg BID PO 02/11/19 21:00 02/12/19 09:33 Docusate Sodium (Colace) 100 mg BID PO 02/11/19 21:00 02/12/19 09:32 Duloxetine HCl (Cymbalta) 60 mg DAILY PO 02/11/19 09:00 02/12/19 09:33 Enoxaparin Sodium (Lovenox) 40 mg DAILY SC 02/12/19 09:00 02/12/19 09:31 Fexofenadine HCl (Joseline) 180 mg DAILY PO 02/12/19 09:00 02/12/19 09:32 Furosemide (Lasix) 40 mg DAILY PO 02/12/19 09:00 02/12/19 09:31 Gabapentin (Neurontin) 300 mg TID PO 02/11/19 21:00 02/12/19 09:32 Home Med (Med Rec Complete!) ASDIRECTED XX 02/11/19 17:00 02/11/19 17:23 DC Hydralazine HCl (Apresoline) 10 mg TID PO 02/11/19 21:00 02/12/19 09:32 Magnesium Hydroxide (Milk Of Magnesia) 30 ml DAILYPRN PRN PO CONSTIPATION 02/11/19 16:45 Multivitamins (Theragram-M) 1 tab DAILY PO 02/12/19 09:00 02/12/19 09:32 Omeprazole (PriLOSEC) 20 mg DAILY PO 02/12/19 09:00 02/12/19 09:33 Ondansetron HCl (Zofran) 4 mg Q6HP PRN PO NAUSEA 02/11/19 16:45 Senna (Senokot) 2 tab QHS PO 02/11/19 21:00 Spironolactone (Aldactone) 25 mg QAM PO 02/12/19 09:00 02/12/19 09:33 Tizanidine HCl (Zanaflex) 4 mg 0700,1200,1700,2100 PO 02/11/19 17:00 02/12/19 11:05 Tramadol HCl (Ultram) 25 mg QHS PRN PO PAIN >6 02/11/19 16:45 Tramadol HCl (Ultram) 25 mg TID@0700,1200,1700 PO 02/11/19 17:00 02/12/19 11:05 Vitamin D (Vitamin D) 2,000 units DAILY PO 02/12/19 09:00 02/12/19 09:31 GENA BERMUDEZ MD Feb 12, 2019 11:40
[2019-02-12 14:00] VITALS: BP 130/60
--- NOTE | 2019-02-12 17:06 | HPEPDOC ---
General Date of Admission Feb 11, 2019 at 14:50 Date of Service: Feb 12, 2019 Attending Physician: BOWEN MELTON MD Chief Complaint The patient is a 68-year-old female admitted with a reason for visit of Lumbar Stenosis S/P Decompression. Source: Patient, Other ([facility] Records) Exam Limitations: No limitations Timing/Duration: Day(s) Severity: Moderate History of Present Illness 68 up woman with a history of chronic lumbar back pain with lower extremity radicular pain and neurogenic claudication s/p multi-level lumbar surgery in 2011, CHF, HLD, HTN, history of uterine cancer, VICKY on CPAP, COPD, CAD who was admitted to the ARU yesterday from [facility] where she had L1-S1 decompression, transfacet decompression of left L5-s1, instrumentation of L3-s1 with fusion of L1-S1 and evacuation of epidural lipomatosis for spinal stenosis by Dr. Smith on 02/06. Her post op course was relatively uneventful with noted blood loss anemia, pain management and an initial wound vac [facility] On arrival to the ARU, her initial labs showed WBC 8.6, hgb 9.4, Hct 28.6, platelets 244, Na 137, K 3.6 and Cr 0.62. She was otherwise speaking in full sentences in no acute distress and reporting pain by way of low back and upper thigh spasms that are managed to a manageable level with her current nj dications. Home Medications Scheduled Ascorbic Acid (Vitamin C) 500 Mg Tablet, 500 MG PO DAILY, (Reported) Atorvastatin Calcium (Atorvastatin Calcium) 40 Mg Tablet, 40 MG PO DAILY, (Reported) Calcium Carbonate (Calcium) 500 Mg Tablet, 500 MG PO BID, (Reported) Carvedilol (Carvedilol) 25 Mg Tablet, 25 MG PO BID, (Reported) Cholecalciferol (Vitamin D3) (Vitamin D3) 1,000 Unit Tablet, 1,000 UNIT PO DAILY, (Reported) Docusate Sodium (Colace) 100 Mg Capsule, 100 MG PO BID, (Reported) STARTED AT [facility] Duloxetine Hcl (Duloxetine HCl) 30 Mg Capsule.dr, 30 MG PO QHS, (Reported) Enoxaparin Sodium (Lovenox) 40 Mg/0.4 Ml Syringe, 40 MG SC DAILY, (Reported) STARTED AT [facility] Fexofenadine HCl (Joseline Allergy) 180 Mg Tablet, 180 MG PO DAILY, (Reported) Furosemide (Furosemide) 40 Mg Tablet, 40 MG PO DAILY, (Reported) Gabapentin (Gabapentin) 300 Mg Capsule, 300 MG PO TID, (Reported) Glucosam/Chond/Collagen/Hyalur (Glucosamine Chondroitin Cap) 1 Each Capsule, 2 CAP PO DAILY, (Reported) Hydralazine HCl (Hydralazine HCl) 10 Mg Tablet, 10 MG PO TID, (Reported) Lidocaine (Lidocaine) 5% Adh..patch, 1 PATCH TOP QPM, (Reported) STARTED AT [facility] - APPLY TO BACK Meloxicam (Meloxicam) 15 Mg Tablet, 15 MG PO DAILY, (Reported) Multivitamin with Minerals (Hair, Skin and Nails) 1 Each Tablet, 4 TAB PO DAILY, (Reported) Mv,Calcium,Min/Iron/Folic/Vitk (Multi For Her Tablet) 1 Tab Tab, 1 TAB PO QAM, (Reported) Omeprazole (Omeprazole) 20 Mg Capsule.dr, 20 MG PO DAILY, (Reported) Spironolactone (Spironolactone) 25 Mg Tablet, 25 MG PO DAILY, (Reported) Scheduled PRN Acetaminophen (Tylenol) 325 Mg Tablet, 650 MG PO Q6H PRN for PAIN, (Reported) Cyclobenzaprine HCl (Cyclobenzaprine HCl) 10 Mg Tablet, 10 MG PO TID PRN for MUSCLE SPASMS, (Reported) Naproxen Sodium (Aleve) 220 Mg Tablet, 220 MG PO PRN PRN for PAIN, (Reported) Oxycodone HCl (Oxycodone HCl) 5 Mg Tablet, 5 MG PO Q4H PRN for MILD PAIN (PS 1- 4), (Reported) STARTED AT [facility] Oxycodone HCl (Oxycodone HCl) 5 Mg Tablet, 10 MG PO Q4H PRN for SEVERE PAIN (PS 8-10), (Reported) STARTED AT [facility] Sennosides (Senna) 8.6 Mg Tablet, 2 TAB PO QHS PRN for CONSTIPATION, (Reported) STARTED AT [facility] Allergies Coded Allergies: erythromycin base (Verified Allergy, Severe, ANAPHYLAXIS, 11/12/18) MARY LOU Inhibitors (Verified Allergy, Unknown, WAS TOLD BY HER PACKERHEAD MACHINE OPERATOR THIS IS RELATED TO ERYTHROMYCIN, 02/11/19) isosorbide (Verified Adverse Reaction, Mild, headache, 11/12/18) Past Medical History Medical History chronic lumbar back pain with lower extremity radicular pain and neurogenic claudication s/p multi-level lumbar surgery in 2011, CHF, HLD, HTN, history of uterine cancer, VICKY on CPAP, COPD, CAD who was admitted to the ARU yesterday from [facility] where she had L1-S1 decompression, transfacet decompression of left L5-s1, instrumentation of L3-s1 with fusion of L1-S1 and evacuation of epidural lipomatosis for spinal stenosis by Dr. Smith on 02/06. Surgical History Bilateral foot surgery, oophorectomy, hysterectomy, tonsillectomy, carpal tunnel and now L1-S1 decompression, transfacet decompression of left L5-s1, instrumentation of L3-s1 with fusion of L1-S1 and evacuation of epidural lipomatosis for spinal stenosis by Dr. Smith on 02/06. Family History Significant Family History: No pertinent family hx Cardiac, stroke, COPD, cancer Social History * Smoker: Denies, former Smoker Alcohol: occationally Drugs: denies Recent Travel/Sick Contacts: Reports: Recent travel Quit smoking 3 years ago, +ETOH use, denies illicit dugs A-FIB/CHADSVASC A-FIB History Current/History of A-Fib/PAF?: No Current PO Anticoag Therapy: No Age/Risk Factor Scoring CHADSVASC: CHADSVASC Response (Comments) Value Age Risk Factor Age 65-74 years old 1 Gender Risk Factor Female 1 Hx of CHF Yes 1 Hx of HTN No 0 Hx of Stroke/TIA/or VTE No 0 Hx of Diabetes Yes 1 Hx of Vascular Disease Yes 1 Total 5 Treatment Treatment ordered: NONE Reason Anticoagulant not given: Not indicated/[id number] Review of Systems Constitutional: Denies: Chills, Fever, Night Sweats Eyes: Denies: Pain, Vision change ENT: Denies: Head Aches, Ear Pain, Dysphagia Skin: Denies: Rash, Lesions, Breakdown Pulmonary: Denies: Dyspnea, Cough Cardiovascular: Denies: Chest Pain, Palpitations, Orthopnea, Paroxysmal Noc. Dyspnea, Lt Headedness Gastrointestinal: Denies: Nausea, Vomiting, Abdominal Pain, Diarrhea Genitourinary: Denies: Dysuria, Frequency, Incontinence, Retention Hematologic: Denies: Bruising, Bleeding Excessively Endocrine: Denies: Polydipsia, Polyphagia, Polyuria, Heat Intolerance, Cold Intolerance, Other Endocrine Sx Musculoskeletal: Reports: Back Pain, Leg Pain, Spasms Neurological: Denies: Weakness, Numbness, Change in speech, Confusion, Seizures Psych: Reports: Mood Normal Physical Examination General Exam: Positive: Alert, No Acute Distress Eye Exam: Positive: PERRLA, Conjunctiva & lids normal, EOMI; Negative: Sclera icteric ENT Exam: Positive: Atraumatic, Mucous membr. moist/pink, Pharynx Normal Neck Exam: Positive: Supple; Negative: JVD, thyromegaly Chest Exam: Positive: Clear to auscultation, Normal air movement Heart Exam: Positive: Rate Normal, Regular Rhythm, Normal S1, Normal S2; Negative: Murmurs, Rubs Abdomen Exam: Positive: Normal bowel sounds, Soft; Negative: Tenderness, Hepatospenomegaly Extremity Exam: Positive: Normal pulses; Negative: Clubbing, Cyanosis, Edema, Tenderness, Swelling Skin Exam: Positive: Nl turgor and temperature; Negative: Breakdown, Lesion (central lower back wtih dressing in place. No bleeding or crainage) Neuro Exam: Positive: Normal Speech, Strength at 5/5 X4 ext (except for promixal thighs that were 3/5 due to pain), Normal Tone, Sensation Intact, Cranial Nerves 3-12 NL Psych Exam: Positive: Mental status NL, Mood NL, Oriented x 3 Vital Signs Vital Signs Date Time Temp Pulse Resp B/P (MAP) Pulse Ox O2 Delivery O2 Flow Rate FiO2 02/12/19 15:46 130/60 02/12/19 14:00 96.9 77 18 96 Room Air Laboratory Data Labs 24H Laboratory Tests 2 02/12/19 06:31: Immature Granulocyte % (Auto) 0.2, Neutrophils (%) (Auto) 75.7H, Lymphocytes (%) (Auto) 11.4L, Monocytes (%) (Auto) 10.9H, Eosinophils (%) (Auto) 1.4, Basophils (%) (Auto) 0.4, Neutrophils # (Auto) 6.5, Lymphocytes # (Auto) 1.0L, Monocytes # (Auto) 0.9H, Eosinophils # (Auto) 0.1, Basophils # (Auto) 0.0, Nucleated Red Blood Cells % (auto) 0.0, Anion Gap 8, Glomerular Filtration Rate > 60.0, Calcium Level 8.8, Total Bilirubin 0.4, Aspartate Amino Transf (AST/SGOT) 30, Alanine Aminotransferase (ALT/SGPT) 15, Alkaline Phosphatase 97, Total Protein 7.1, Albumin 2.5L, Albumin/Globulin Ratio 0.54L CBC/BMP Laboratory Tests 02/12/19 06:31 Assessment/Plan ASSESSMENT:68-year-old woman with a history of significant spinal stenosis with radicular pain now s/p lumbar decompression and fusion surgery at [facility] with ongoing intensive rehabilitation in the ARU. PLAN: Well compensated chronic systolic CHF: -continue her daily lasix and spironolactone, and agree with fluid restrict to 1800cc Chronic HTN: -continue home coreg and hydralazine Hyperlipidemia: - continue home lipitor VICKY: -continue home QHS CPAP History of COPD: compensated with no evidence of exacerbation -Duonebs prn -incentive spirometry Neuropathic radicular pain: -continue cymbalta and gabapentin -continue tramadol, and tizanidine GI ppx: on omeprazole DVT ppx: lovenox Dispo: per ARU Plan / VTE VTE Prophylaxis Ordered?: Yes BOWEN MELTON MD Feb 12, 2019 17:06
[2019-02-12 20:00] VITALS: BP 125/57
[2019-02-12] MEDS: SENNA 8.6 MG TAB (SENOKOT) PO SCH (20:04)
[2019-02-13 06:00] VITALS: BP 146/82
[2019-02-13] MEDS: tiZANidine 4 MG TAB PO SCH ×4 (06:07→21:11)
[2019-02-13] MEDS: traMADol 50 MG TAB PO SCH ×4 (06:08→21:09)
[2019-02-13] MEDS ORDERED: PREVNAR 13 VACCINE SYRINGE (CPT CODE:90670) IM ONE (09:00)
[2019-02-13] MEDS: GABAPENTIN 300 MG CAP PO SCH ×3 (09:02→21:07)
[2019-02-13] MEDS: VITAMIN D 1,000 INTERNATIONAL UNITS TABLET PO SCH (09:02)
[2019-02-13] MEDS: FEXOFENADINE 60 MG TAB PO SCH (09:02)
[2019-02-13] MEDS: ACETAMINOPHEN 500 MG TAB PO SCH ×3 (09:03→21:08)
[2019-02-13] MEDS: ATORVASTATIN 20 MG TAB PO SCH (09:03)
[2019-02-13] MEDS: DOCUSATE SODIUM 100 MG CAP PO SCH ×2 (09:04→21:09)
[2019-02-13] MEDS: ENOXAPARIN 40 MG/0.4 ML SYRINGE (J1650) SC SCH (09:04)
[2019-02-13] MEDS: SPIRONOLACTONE 25 MG TAB PO SCH (09:05)
[2019-02-13] MEDS: DULoxetine 30 MG CAP (CYMBALTA) PO SCH (09:05)
[2019-02-13] MEDS: CARVedilol 12.5 MG TAB PO SCH ×2 (09:05→21:07)
[2019-02-13] MEDS: ASCORBIC ACID 500 MG TAB PO SCH (09:05)
[2019-02-13] MEDS: MULTIVITAMINS/MINERALS THERAP 1 TAB PO SCH (09:05)
[2019-02-13] MEDS: OMEPRAZOLE 20 MG CAP PO SCH (09:05)
[2019-02-13] MEDS: FUROSEMIDE 40 MG TAB PO SCH (09:06)
[2019-02-13] MEDS: **hydrALAZINE** 10 MG TAB PO SCH ×3 (09:06→21:09)
[2019-02-13] MEDS ORDERED: traMADol 50 MG TAB PO PRN (11:00)
[2019-02-13] MEDS ORDERED: GABAPENTIN 300 MG CAP PO ONE (11:00)
--- NOTE | 2019-02-13 11:04 | IPNPDOC ---
PM&R Progress Note DATE OF SERVICE: Feb 13, 2019 Vaccine Specialist Progress Note Subjective: Patient reporting she was up all night with pain and is wondering if her gabapentin dose can be increased. REVIEW OF SYSTEMS: The following is a completed review of systems and has been reviewed. Review of systems otherwise unremarkable. PAIN: Patient self reports bilat upper thigh spasms EYES: No recent vision changes EARS, NOSE, & THROAT: No throat pain, or dysphagia, or rhinorrhea CARDIOVASCULAR: Denies chest pain or palpitations PULMONARY: Denies shortness of breath GASTROINTESTINAL: Denies constipation/diarrhea GENITOURINARY: +dysuria MUSCULOSKELETAL: bilat LE pain NEUROLOGICAL:neurogenic claudication (chronic) HEMATOLOGICAL: denies easy bruising SKIN: surgical incision PSYCHIATRIC: Unremarkable All other review of systems found to be negative. PHYSICAL EXAMINATION: VITAL SIGNS: Please see below. GENERAL: Pleasant and cooperative. No acute distress. obese HEENT: PERRL. Extraocular movements intact. Clear conjunctiva CARDIOVASCULAR: Regular rate and rhythm. No murmurs, rubs, or gallops LUNGS: Clear to auscultation bilaterally. No wheezes. No rhonchi ABDOMEN: Soft, nontender, nondistended. Positive bowel sounds. Normal active bowel sounds NEUROLOGICAL: Alert and oriented times three. Cranial nerves II through XII grossly intact. Sensation grossly intact in all 4 extremities, decrease in sensation bilat lateral upper thighs EXTREMITIES: 5\5 strength bilateral upper extremities. 5\5 strength right knee extension, ankle DF. EHL,a nd PF (hip flexion >3/5 limited by pain). 5/5 strength in left knee extension, ankle DF. EHL, and PF (hip flexion >3/5 limited by pain). SKIN: back surgical incision with dressing, fely-wound without induration or erythema ASSESSMENT:68-year-old F with past medical history of chronic low back pain, CHF, obesity who presents status post L1-S1 decompression and fusion. PLAN: 1. Rehab- PT- advance gait training, maintain spinal precautions, ambulating with RW OT- advance ADL, provide adaptive equipment for spinal precautions, energy conservation 2. Neuro: no active issues 3. CArdiac: hx CHF, c/u lasix and spironolactone, c/u restrict to 1800cc -HTN c/u beta-gold and hydralazine, medicine consulted to assist in management -HLD c/u statin 4. Resp: hx VICKY on CPAP, hx COPD -DUonebs prn, encourage incentive spirometry 5. Pain: increased Cymbalta to 60mg daily, c/u tramadol, and tizanidine -will increase gabapentin to 600 TID 6. : monitor PVRs, UA negative 7. GI ppx: omeprazole 8. DVT ppx: lovenox 9. Dispo: tentatively 02-20-19 to home Allergies Coded Allergies: erythromycin base (Verified Allergy, Severe, ANAPHYLAXIS, 11/12/18) MARY LOU Inhibitors (Verified Allergy, Unknown, WAS TOLD BY HER HAND CANDY CUTTER THIS IS RELATED TO ERYTHROMYCIN, 02/11/19) isosorbide (Verified Adverse Reaction, Mild, headache, 11/12/18) Vital Signs Vital Signs Date Time Temp Pulse Resp B/P (MAP) Pulse Ox O2 Delivery O2 Flow Rate FiO2 02/13/19 09:06 146/82 02/13/19 09:05 72 02/13/19 06:08 17 02/13/19 06:00 97.2 97 Room Air Laboratory Data Labs 24H Laboratory Tests 2 02/13/19 06:14: Urine Color STRAW, Urine Appearance CLEAR, Urine pH 7.0, Urine Specific [place] 1.004, Urine Protein NEGATIVE, Urine Glucose (UA) NEGATIVE, Urine Ketones 1+H, Urine Blood NEGATIVE, Urine Nitrite NEGATIVE, Urine Bilirubin NEGATIVE, Urine Urobilinogen 0.2, Urine Leukocyte Esterase NEGATIVE, Urine WBC (Auto) 0, Urine RBC (Auto) 2, Urine Hyaline Casts (Auto) 0, Urine Bacteria (Auto) NEGATIVE, Urine Squamous Epithelial Cells 1, Urine Sperm (Auto) Current Medications Current Medications Current Medications Medications (Trade) Dose Ordered Sig/Barbara Route PRN Reason Start Time Stop Time Status Last Admin Dose Admin Acetaminophen (Tylenol Tab) 1,000 mg TID PO 02/11/19 21:00 02/13/19 09:03 Ascorbic Acid (Vitamin C) 1,000 mg DAILY PO 02/12/19 09:00 02/13/19 09:05 Atorvastatin Calcium (Lipitor) 40 mg DAILY PO 02/12/19 09:00 02/13/19 09:03 Carvedilol (COReg) 25 mg BID PO 02/11/19 21:00 02/13/19 09:05 Docusate Sodium (Colace) 100 mg BID PO 02/11/19 21:00 02/13/19 09:04 Duloxetine HCl (Cymbalta) 60 mg DAILY PO 02/11/19 09:00 02/13/19 09:05 Enoxaparin Sodium (Lovenox) 40 mg DAILY SC 02/12/19 09:00 02/13/19 09:04 Fexofenadine HCl (Joseline) 180 mg DAILY PO 02/12/19 09:00 02/13/19 09:02 Furosemide (Lasix) 40 mg DAILY PO 02/12/19 09:00 02/13/19 09:06 Gabapentin (Neurontin) 300 mg TID PO 02/11/19 21:00 02/13/19 10:52 DC 02/13/19 09:02 Gabapentin (Neurontin) 600 mg TID PO 02/13/19 16:00 UNV Home Med (Med Rec Complete!) ASDIRECTED XX 02/11/19 17:00 02/11/19 17:23 DC Hydralazine HCl (Apresoline) 10 mg TID PO 02/11/19 21:00 02/13/19 09:06 Magnesium Hydroxide (Milk Of Magnesia) 30 ml DAILYPRN PRN PO CONSTIPATION 02/11/19 16:45 Multivitamins (Theragram-M) 1 tab DAILY PO 02/12/19 09:00 02/13/19 09:05 Omeprazole (PriLOSEC) 20 mg DAILY PO 02/12/19 09:00 02/13/19 09:05 Ondansetron HCl (Zofran) 4 mg Q6HP PRN PO NAUSEA 02/11/19 16:45 Senna (Senokot) 2 tab QHS PO 02/11/19 21:00 Spironolactone (Aldactone) 25 mg QAM PO 02/12/19 09:00 02/13/19 09:05 Tizanidine HCl (Zanaflex) 4 mg 0700,1200,1700,2100 PO 02/11/19 17:00 02/13/19 06:07 Tramadol HCl (Ultram) 25 mg QHS PRN PO PAIN >6 02/11/19 16:45 02/13/19 10:52 DC 02/13/19 01:24 Tramadol HCl (Ultram) 25 mg TID@0700,1200,1700 PO 02/11/19 17:00 02/13/19 10:52 DC 02/13/19 06:08 Tramadol HCl (Ultram) 50 mg ASDIRECTED PO 02/13/19 11:00 UNV Tramadol HCl (Ultram) 50 mg QHS PRN PO PAIN >6 02/13/19 11:00 UNV Vitamin D (Vitamin D) 2,000 units DAILY PO 02/12/19 09:00 02/13/19 09:02 GENA BERMUDEZ MD Feb 13, 2019 11:04
[2019-02-13] MEDS: ANALGESIC BALM CRM 120 GM TOP SCH ×4 (13:00→21:11)
[2019-02-13 14:00] VITALS: BP 130/70
[2019-02-13 20:25] VITALS: BP 145/69
[2019-02-13] MEDS: SENNA 8.6 MG TAB (SENOKOT) PO SCH (21:09)
[2019-02-14 05:25] VITALS: BP 177/78
[2019-02-14] MEDS: tiZANidine 4 MG TAB PO SCH ×4 (06:17→21:15)
[2019-02-14] MEDS: traMADol 50 MG TAB PO SCH ×4 (06:17→18:14)
[2019-02-14 06:27] VITALS: BP 140/70
[2019-02-14 07:05] LABS: HEMATOCRIT 29.5 % (36.0-47.0); HEMOGLOBIN 9.5 g/dl (12.0-15.5); MEAN CORPUSCULAR HEMOGLOBIN 30.1 pg (27.0-33.0); MEAN CORPUSCULAR HGB CONC 32.2 g/dl (32.0-36.5); MEAN CORPUSCULAR VOLUME 93.4 fl (80.0-96.0); PLATELET COUNT, AUTOMATED 340 10^3/uL (150-450); RED BLOOD COUNT 3.16 10^6/uL (4.00-5.40); WHITE BLOOD COUNT 8.4 10^3/uL (4.0-10.0)
[2019-02-14] MEDS: ENOXAPARIN 40 MG/0.4 ML SYRINGE (J1650) SC SCH (08:25)
[2019-02-14] MEDS: DULoxetine 30 MG CAP (CYMBALTA) PO SCH (08:25)
[2019-02-14] MEDS: SPIRONOLACTONE 25 MG TAB PO SCH (08:25)
[2019-02-14] MEDS: GABAPENTIN 300 MG CAP PO SCH ×3 (08:26→21:15)
[2019-02-14] MEDS: ATORVASTATIN 20 MG TAB PO SCH (08:26)
[2019-02-14] MEDS: FEXOFENADINE 60 MG TAB PO SCH (08:26)
[2019-02-14] MEDS: OMEPRAZOLE 20 MG CAP PO SCH (08:27)
[2019-02-14] MEDS: VITAMIN D 1,000 INTERNATIONAL UNITS TABLET PO SCH (08:27)
[2019-02-14] MEDS: MULTIVITAMINS/MINERALS THERAP 1 TAB PO SCH (08:27)
[2019-02-14] MEDS: ASCORBIC ACID 500 MG TAB PO SCH (08:27)
[2019-02-14] MEDS: **hydrALAZINE** 10 MG TAB PO SCH ×3 (08:27→21:16)
[2019-02-14] MEDS: CARVedilol 12.5 MG TAB PO SCH ×2 (08:28→21:16)
[2019-02-14] MEDS: FUROSEMIDE 40 MG TAB PO SCH (08:28)
[2019-02-14] MEDS: DOCUSATE SODIUM 100 MG CAP PO SCH ×2 (08:28→21:16)
[2019-02-14] MEDS: ANALGESIC BALM CRM 120 GM TOP SCH ×4 (08:29→21:20)
[2019-02-14] MEDS: ACETAMINOPHEN 500 MG TAB PO SCH ×3 (08:29→21:17)
[2019-02-14 13:45] VITALS: BP 111/56
[2019-02-14 20:05] VITALS: BP 145/65
[2019-02-14] MEDS: SENNA 8.6 MG TAB (SENOKOT) PO SCH (21:16)
[2019-02-15] MEDS: traMADol 50 MG TAB PO SCH ×5 (02:01→18:30)
[2019-02-15] MEDS: tiZANidine 4 MG TAB PO SCH ×5 (02:01→21:56)
[2019-02-15 05:35] VITALS: BP 139/65
[2019-02-15] MEDS: DOCUSATE SODIUM 100 MG CAP PO SCH ×2 (07:20→21:00)
[2019-02-15] MEDS: ENOXAPARIN 40 MG/0.4 ML SYRINGE (J1650) SC SCH (09:43)
[2019-02-15] MEDS: ATORVASTATIN 20 MG TAB PO SCH (09:43)
[2019-02-15] MEDS: ASCORBIC ACID 500 MG TAB PO SCH (09:43)
[2019-02-15] MEDS: VITAMIN D 1,000 INTERNATIONAL UNITS TABLET PO SCH (09:43)
[2019-02-15] MEDS: **hydrALAZINE** 10 MG TAB PO SCH ×3 (09:44→21:56)
[2019-02-15] MEDS: MULTIVITAMINS/MINERALS THERAP 1 TAB PO SCH (09:44)
[2019-02-15] MEDS: SPIRONOLACTONE 25 MG TAB PO SCH (09:44)
[2019-02-15] MEDS: FUROSEMIDE 40 MG TAB PO SCH (09:44)
[2019-02-15] MEDS: ACETAMINOPHEN 500 MG TAB PO SCH ×3 (09:44→21:56)
[2019-02-15] MEDS: OMEPRAZOLE 20 MG CAP PO SCH (09:45)
[2019-02-15] MEDS: DULoxetine 30 MG CAP (CYMBALTA) PO SCH (09:45)
[2019-02-15] MEDS: FEXOFENADINE 60 MG TAB PO SCH (09:45)
[2019-02-15] MEDS: CARVedilol 12.5 MG TAB PO SCH ×2 (09:45→21:56)
[2019-02-15] MEDS: ANALGESIC BALM CRM 120 GM TOP SCH ×4 (09:45→21:57)
[2019-02-15] MEDS: GABAPENTIN 300 MG CAP PO SCH ×3 (09:45→21:55)
[2019-02-15 14:00] VITALS: BP 119/55
[2019-02-15 20:00] VITALS: BP 133/63
[2019-02-15] MEDS: SENNA 8.6 MG TAB (SENOKOT) PO SCH (21:00)
[2019-02-16] MEDS: traMADol 50 MG TAB PO SCH ×5 (02:26→18:48)
[2019-02-16] MEDS: tiZANidine 4 MG TAB PO SCH ×5 (02:26→21:03)
[2019-02-16 06:00] VITALS: BP 139/67
[2019-02-16] MEDS: GABAPENTIN 300 MG CAP PO SCH ×3 (08:57→21:03)
[2019-02-16] MEDS: DULoxetine 30 MG CAP (CYMBALTA) PO SCH (08:57)
[2019-02-16] MEDS: VITAMIN D 1,000 INTERNATIONAL UNITS TABLET PO SCH (08:57)
[2019-02-16] MEDS: CARVedilol 12.5 MG TAB PO SCH ×2 (08:58→21:04)
[2019-02-16] MEDS: ASCORBIC ACID 500 MG TAB PO SCH (08:58)
[2019-02-16] MEDS: ATORVASTATIN 20 MG TAB PO SCH (08:58)
[2019-02-16] MEDS: FEXOFENADINE 60 MG TAB PO SCH (08:59)
[2019-02-16] MEDS: ACETAMINOPHEN 500 MG TAB PO SCH ×3 (08:59→21:04)
[2019-02-16] MEDS: DOCUSATE SODIUM 100 MG CAP PO SCH ×2 (09:00→19:26)
[2019-02-16] MEDS: MULTIVITAMINS/MINERALS THERAP 1 TAB PO SCH (09:00)
[2019-02-16] MEDS: **hydrALAZINE** 10 MG TAB PO SCH ×3 (09:00→21:04)
[2019-02-16] MEDS: FUROSEMIDE 40 MG TAB PO SCH (09:00)
[2019-02-16] MEDS: SPIRONOLACTONE 25 MG TAB PO SCH (09:00)
[2019-02-16] MEDS: OMEPRAZOLE 20 MG CAP PO SCH (09:00)
[2019-02-16] MEDS: ENOXAPARIN 40 MG/0.4 ML SYRINGE (J1650) SC SCH (09:03)
[2019-02-16] MEDS: ANALGESIC BALM CRM 120 GM TOP SCH ×4 (09:04→21:05)
--- NOTE | 2019-02-16 09:52 | IPNPDOC ---
PM&R Progress Note DATE OF SERVICE: Feb 16, 2019 Migratory Farm Hand Progress Note Subjective: Patient reporting her pain is much better and that she is not too tired. She is eager to get home by the end of the week. REVIEW OF SYSTEMS: The following is a completed review of systems and has been reviewed. Review of systems otherwise unremarkable. PAIN: Patient self reports bilat upper thigh spasms EYES: No recent vision changes EARS, NOSE, & THROAT: No throat pain, or dysphagia, or rhinorrhea CARDIOVASCULAR: Denies chest pain or palpitations PULMONARY: Denies shortness of breath GASTROINTESTINAL: Denies constipation/diarrhea GENITOURINARY: +dysuria MUSCULOSKELETAL: bilat LE pain NEUROLOGICAL:neurogenic claudication (chronic) HEMATOLOGICAL: denies easy bruising SKIN: surgical incision PSYCHIATRIC: Unremarkable All other review of systems found to be negative. PHYSICAL EXAMINATION: VITAL SIGNS: Please see below. GENERAL: Pleasant and cooperative. No acute distress. obese HEENT: PERRL. Extraocular movements intact. Clear conjunctiva CARDIOVASCULAR: Regular rate and rhythm. No murmurs, rubs, or gallops LUNGS: Clear to auscultation bilaterally. No wheezes. No rhonchi ABDOMEN: Soft, nontender, nondistended. Positive bowel sounds. Normal active bowel sounds NEUROLOGICAL: Alert and oriented times three. Cranial nerves II through XII grossly intact. Sensation grossly intact in all 4 extremities, decrease in sensation bilat lateral upper thighs EXTREMITIES: 5\5 strength bilateral upper extremities. 5\5 strength right knee extension, ankle DF. EHL,a nd PF (hip flexion >3/5 limited by pain). 5/5 strength in left knee extension, ankle DF. EHL, and PF (hip flexion >3/5 limited by pain). SKIN: back surgical incision with dressing, fely-wound without induration or erythema ASSESSMENT:68-year-old F with past medical history of chronic low back pain, CHF, obesity who presents status post L1-S1 decompression and fusion. PLAN: 1. Rehab- PT- advance gait training, maintain spinal precautions, ambulating with RW OT- advance ADL, provide adaptive equipment for spinal precautions, energy conservation 2. Neuro: no active issues 3. CArdiac: hx CHF, c/u lasix and spironolactone, c/u restrict to 1800cc -HTN c/u beta-gold and hydralazine, medicine consulted to assist in management -HLD c/u statin 4. Resp: hx VICKY on CPAP, hx COPD -DUonebs prn, encourage incentive spirometry 5. Pain: increased Cymbalta to 60mg daily, c/u tramadol, and tizanidine -c/u gabapentin 600 TID 6. : monitor PVRs, UA negative 7. GI ppx: omeprazole 8. DVT ppx: lovenox 9. Dispo: tentatively 02-20-19 to home Allergies Coded Allergies: erythromycin base (Verified Allergy, Severe, ANAPHYLAXIS, 11/12/18) MARY LOU Inhibitors (Verified Allergy, Unknown, WAS TOLD BY HER TIPPLE OILER THIS IS RELATED TO ERYTHROMYCIN, 02/11/19) isosorbide (Verified Adverse Reaction, Mild, headache, 11/12/18) Vital Signs Vital Signs Date Time Temp Pulse Resp B/P (MAP) Pulse Ox O2 Delivery O2 Flow Rate FiO2 02/16/19 06:01 18 02/16/19 06:00 96.8 83 139/67 (91) 94 Room Air Current Medications Current Medications Current Medications Medications (Trade) Dose Ordered Sig/Barbara Route PRN Reason Start Time Stop Time Status Last Admin Dose Admin Acetaminophen (Tylenol Tab) 1,000 mg TID PO 02/11/19 21:00 02/16/19 08:59 Ascorbic Acid (Vitamin C) 1,000 mg DAILY PO 02/12/19 09:00 02/16/19 08:58 Atorvastatin Calcium (Lipitor) 40 mg DAILY PO 02/12/19 09:00 02/16/19 08:58 Carvedilol (COReg) 25 mg BID PO 02/11/19 21:00 02/16/19 08:58 Docusate Sodium (Colace) 100 mg BID PO 02/11/19 21:00 02/14/19 21:16 Duloxetine HCl (Cymbalta) 60 mg DAILY PO 02/11/19 09:00 02/16/19 08:57 Enoxaparin Sodium (Lovenox) 40 mg DAILY SC 02/12/19 09:00 02/16/19 09:03 Fexofenadine HCl (Joseline) 180 mg DAILY PO 02/12/19 09:00 02/16/19 08:59 Furosemide (Lasix) 40 mg DAILY PO 02/12/19 09:00 02/16/19 09:00 Gabapentin (Neurontin) 300 mg TID PO 02/11/19 21:00 02/13/19 10:52 DC 02/13/19 09:02 Gabapentin (Neurontin) 600 mg TID PO 02/13/19 16:00 02/16/19 08:57 Home Med (Med Rec Complete!) ASDIRECTED XX 02/11/19 17:00 02/11/19 17:23 DC Hydralazine HCl (Apresoline) 10 mg TID PO 02/11/19 21:00 02/16/19 09:00 Magnesium Hydroxide (Milk Of Magnesia) 30 ml DAILYPRN PRN PO CONSTIPATION 02/11/19 16:45 Menthol/Methyl Salicylate (Bengay Cream) apply to bilateral thighs QID TOP 02/13/19 11:15 02/16/19 09:04 Multivitamins (Theragram-M) 1 tab DAILY PO 02/12/19 09:00 02/16/19 09:00 Omeprazole (PriLOSEC) 20 mg DAILY PO 02/12/19 09:00 02/16/19 09:00 Ondansetron HCl (Zofran) 4 mg Q6HP PRN PO NAUSEA 02/11/19 16:45 Senna (Senokot) 2 tab QHS PO 02/11/19 21:00 02/14/19 21:16 Spironolactone (Aldactone) 25 mg QAM PO 02/12/19 09:00 02/16/19 09:00 Tizanidine HCl (Zanaflex) 4 mg 0700,1200,1700,2100 PO 02/11/19 17:00 02/16/19 06:01 Tizanidine HCl (Zanaflex) 4 mg DAILY@0200 PO 02/15/19 02:00 02/16/19 02:26 Tramadol HCl (Ultram) 25 mg QHS PRN PO PAIN >6 02/11/19 16:45 02/13/19 10:52 DC 02/13/19 01:24 Tramadol HCl (Ultram) 25 mg TID@0700,1200,1700 PO 02/11/19 17:00 02/13/19 10:52 DC 02/13/19 06:08 Tramadol HCl (Ultram) 50 mg BID@0700,1100 PO 02/13/19 11:00 02/16/19 06:01 Tramadol HCl (Ultram) 50 mg BID@1500,1900 PO 02/13/19 15:00 02/15/19 18:30 Tramadol HCl (Ultram) 50 mg DAILY@0200 PO 02/15/19 02:00 02/16/19 02:26 Tramadol HCl (Ultram) 50 mg QHS PRN PO PAIN >6 02/13/19 11:00 02/14/19 01:23 Vitamin D (Vitamin D) 2,000 units DAILY PO 02/12/19 09:00 02/16/19 08:57 GENA BERMUDEZ MD Feb 16, 2019 09:52
[2019-02-16 14:00] VITALS: BP 130/60
[2019-02-16] MEDS: SENNA 8.6 MG TAB (SENOKOT) PO SCH (19:26)
[2019-02-16 20:00] VITALS: BP 123/57
[2019-02-17] MEDS: tiZANidine 4 MG TAB PO SCH ×5 (01:22→20:33)
[2019-02-17] MEDS: traMADol 50 MG TAB PO SCH ×5 (01:23→18:03)
[2019-02-17 06:00] VITALS: BP 136/65
[2019-02-17] MEDS: GABAPENTIN 300 MG CAP PO SCH ×3 (06:15→20:33)
[2019-02-17 07:25] LABS: HEMATOCRIT 27.1 % (36.0-47.0); HEMOGLOBIN 8.8 g/dl (12.0-15.5); MEAN CORPUSCULAR HEMOGLOBIN 30.1 pg (27.0-33.0); MEAN CORPUSCULAR HGB CONC 32.5 g/dl (32.0-36.5); MEAN CORPUSCULAR VOLUME 92.8 fl (80.0-96.0); PLATELET COUNT, AUTOMATED 399 10^3/uL (150-450); RED BLOOD COUNT 2.92 10^6/uL (4.00-5.40); WHITE BLOOD COUNT 6.7 10^3/uL (4.0-10.0)
[2019-02-17] MEDS: MULTIVITAMINS/MINERALS THERAP 1 TAB PO SCH (09:21)
[2019-02-17] MEDS: OMEPRAZOLE 20 MG CAP PO SCH (09:21)
[2019-02-17] MEDS: DULoxetine 30 MG CAP (CYMBALTA) PO SCH (09:22)
[2019-02-17] MEDS: VITAMIN D 1,000 INTERNATIONAL UNITS TABLET PO SCH (09:22)
[2019-02-17] MEDS: DOCUSATE SODIUM 100 MG CAP PO SCH ×2 (09:22→20:32)
[2019-02-17] MEDS: ACETAMINOPHEN 500 MG TAB PO SCH ×3 (09:22→20:34)
[2019-02-17] MEDS: ATORVASTATIN 20 MG TAB PO SCH (09:22)
[2019-02-17] MEDS: FUROSEMIDE 40 MG TAB PO SCH (09:23)
[2019-02-17] MEDS: SPIRONOLACTONE 25 MG TAB PO SCH (09:23)
[2019-02-17] MEDS: ASCORBIC ACID 500 MG TAB PO SCH (09:23)
[2019-02-17] MEDS: FEXOFENADINE 60 MG TAB PO SCH (09:23)
[2019-02-17] MEDS: **hydrALAZINE** 10 MG TAB PO SCH ×3 (09:24→20:32)
[2019-02-17] MEDS: ENOXAPARIN 40 MG/0.4 ML SYRINGE (J1650) SC SCH (09:24)
[2019-02-17 09:25] LABS: BLOOD UREA NITROGEN 9 MG/DL (7-18); CALCIUM LEVEL 8.5 MG/DL (8.8-10.2); CARBON DIOXIDE LEVEL 31 MEQ/L (21-32); CHLORIDE LEVEL 104 MEQ/L (98-107); CREATININE FOR GFR 0.64 MG/DL (0.55-1.30); GLOMERULAR FILTRATION RATE > 60.0 (>39); GLUCOSE, FASTING 97 MG/DL (70-100); POTASSIUM SERUM 3.6 MEQ/L (3.5-5.1); SODIUM LEVEL 141 MEQ/L (136-145)
[2019-02-17] MEDS: ANALGESIC BALM CRM 120 GM TOP SCH ×4 (09:25→20:34)
[2019-02-17] MEDS: CARVedilol 12.5 MG TAB PO SCH ×2 (09:28→20:32)
[2019-02-17 09:34] LABS: BASO % 0.6 % (0.0-1.0); EOS # 0.2 10^3/uL (0.0-0.5); EOS % 2.7 % (0.0-3.0); LYMPH # 1.3 10^3/uL (1.5-5.0); LYMPH % 18.5 % (24.0-44.0); MONO # 0.7 10^3/uL (0.0-0.8); MONO % 9.8 % (0.0-5.0); NEUTROPHILS # 4.6 10^3/uL (1.5-8.5); NEUTROPHILS % 67.8 % (36.0-66.0)
[2019-02-17 20:00] VITALS: BP 106/54
[2019-02-17] MEDS: SENNA 8.6 MG TAB (SENOKOT) PO SCH (20:32)
[2019-02-18] MEDS: tiZANidine 4 MG TAB PO SCH ×5 (02:09→21:24)
[2019-02-18] MEDS: traMADol 50 MG TAB PO SCH ×5 (02:10→18:38)
[2019-02-18 06:00] VITALS: BP 148/84
[2019-02-18] MEDS: **hydrALAZINE** 10 MG TAB PO SCH ×3 (08:25→21:23)
[2019-02-18] MEDS: OMEPRAZOLE 20 MG CAP PO SCH (08:25)
[2019-02-18] MEDS: MULTIVITAMINS/MINERALS THERAP 1 TAB PO SCH (08:25)
[2019-02-18] MEDS: ANALGESIC BALM CRM 120 GM TOP SCH ×4 (08:25→21:25)
[2019-02-18] MEDS: ENOXAPARIN 40 MG/0.4 ML SYRINGE (J1650) SC SCH (08:25)
[2019-02-18] MEDS: CARVedilol 12.5 MG TAB PO SCH ×2 (08:25→21:24)
[2019-02-18] MEDS: FEXOFENADINE 60 MG TAB PO SCH (08:26)
[2019-02-18] MEDS: SPIRONOLACTONE 25 MG TAB PO SCH (08:26)
[2019-02-18] MEDS: ATORVASTATIN 20 MG TAB PO SCH (08:26)
[2019-02-18] MEDS: FUROSEMIDE 40 MG TAB PO SCH (08:26)
[2019-02-18] MEDS: VITAMIN D 1,000 INTERNATIONAL UNITS TABLET PO SCH (08:26)
[2019-02-18] MEDS: ASCORBIC ACID 500 MG TAB PO SCH (08:26)
[2019-02-18] MEDS: GABAPENTIN 300 MG CAP PO SCH ×3 (08:26→21:23)
[2019-02-18] MEDS: ACETAMINOPHEN 500 MG TAB PO SCH ×3 (08:26→21:23)
[2019-02-18] MEDS: DULoxetine 30 MG CAP (CYMBALTA) PO SCH (08:27)
[2019-02-18] MEDS: DOCUSATE SODIUM 100 MG CAP PO SCH ×2 (08:27→21:00)
--- NOTE | 2019-02-18 10:57 | IPNPDOC ---
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 She is eager to return home on Saturday and is uncertain if she wants home or outpatient PT. REVIEW OF SYSTEMS: The following is a completed review of systems and has been reviewed. Review of systems otherwise unremarkable. PAIN: Patient self reports bilat upper thigh spasms EYES: No recent vision changes EARS, NOSE, & THROAT: No throat pain, or dysphagia, or rhinorrhea CARDIOVASCULAR: Denies chest pain or palpitations PULMONARY: Denies shortness of breath GASTROINTESTINAL: Denies constipation/diarrhea GENITOURINARY: +dysuria MUSCULOSKELETAL: bilat LE pain NEUROLOGICAL:neurogenic claudication (chronic) HEMATOLOGICAL: denies easy bruising SKIN: surgical incision PSYCHIATRIC: Unremarkable All other review of systems found to be negative. PHYSICAL EXAMINATION: VITAL SIGNS: Please see below. GENERAL: Pleasant and cooperative. No acute distress. obese HEENT: PERRL. Extraocular movements intact. Clear conjunctiva CARDIOVASCULAR: Regular rate and rhythm. No murmurs, rubs, or gallops LUNGS: Clear to auscultation bilaterally. No wheezes. No rhonchi ABDOMEN: Soft, nontender, nondistended. Positive bowel sounds. Normal active bowel sounds NEUROLOGICAL: Alert and oriented times three. Cranial nerves II through XII grossly intact. Sensation grossly intact in all 4 extremities, decrease in sensation bilat lateral upper thighs EXTREMITIES: 5\5 strength bilateral upper extremities. 5\5 strength right knee extension, ankle DF. EHL,a nd PF (hip flexion >3/5 limited by pain). 5/5 strength in left knee extension, ankle DF. EHL, and PF (hip flexion >3/5 limited by pain). SKIN: back surgical incision with dressing, fely-wound without induration or erythema ASSESSMENT:68-year-old F with past medical history of chronic low back pain, CHF, obesity who presents status post L1-S1 decompression and fusion. PLAN: 1. Rehab- PT- advance gait training, maintain spinal precautions, ambulating with RW- room privileges today OT- advance ADL, provide adaptive equipment for spinal precautions, energy conservation 2. Neuro: no active issues 3. CArdiac: hx CHF, c/u lasix and spironolactone, c/u restrict to 1800cc -HTN c/u beta-gold and hydralazine, medicine consulted to assist in management -HLD c/u statin 4. Resp: hx VICKY on CPAP, hx COPD -DUonebs prn, encourage incentive spirometry 5. Pain: increased Cymbalta to 60mg daily, c/u tramadol, and tizanidine-stable -c/u gabapentin 600 TID 6. : monitor PVRs, UA negative 7. GI ppx: omeprazole 8. DVT ppx: lovenox 9. Dispo: 02-20-19 to home, progressing towards goals Allergies Coded Allergies: erythromycin base (Verified Allergy, Severe, ANAPHYLAXIS, 11/12/18) MARY LOU Inhibitors (Verified Allergy, Unknown, WAS TOLD BY HER SURGICAL ASSISTANT CERTIFIED THIS IS RELATED TO ERYTHROMYCIN, 02/11/19) isosorbide (Verified Adverse Reaction, Mild, headache, 11/12/18) Vital Signs Vital Signs Date Time Temp Pulse Resp B/P (MAP) Pulse Ox O2 Delivery O2 Flow Rate FiO2 02/18/19 08:25 148/84 02/18/19 08:25 80 02/18/19 06:17 17 02/18/19 06:00 96.0 94 Room Air Current Medications Current Medications Current Medications Medications (Trade) Dose Ordered Sig/Barbara Route PRN Reason Start Time Stop Time Status Last Admin Dose Admin Acetaminophen (Tylenol Tab) 1,000 mg TID PO 02/11/19 21:00 02/18/19 08:26 Ascorbic Acid (Vitamin C) 1,000 mg DAILY PO 02/12/19 09:00 02/18/19 08:26 Atorvastatin Calcium (Lipitor) 40 mg DAILY PO 02/12/19 09:00 02/18/19 08:26 Carvedilol (COReg) 25 mg BID PO 02/11/19 21:00 02/18/19 08:25 Docusate Sodium (Colace) 100 mg BID PO 02/11/19 21:00 02/17/19 09:22 Duloxetine HCl (Cymbalta) 60 mg DAILY PO 02/11/19 09:00 02/18/19 08:27 Enoxaparin Sodium (Lovenox) 40 mg DAILY SC 02/12/19 09:00 02/18/19 08:25 Fexofenadine HCl (Joseline) 180 mg DAILY PO 02/12/19 09:00 02/18/19 08:26 Furosemide (Lasix) 40 mg DAILY PO 02/12/19 09:00 02/18/19 08:26 Gabapentin (Neurontin) 300 mg TID PO 02/11/19 21:00 02/13/19 10:52 DC 02/13/19 09:02 Gabapentin (Neurontin) 600 mg TID PO 02/13/19 16:00 02/18/19 08:26 Home Med (Med Rec Complete!) ASDIRECTED XX 02/11/19 17:00 02/11/19 17:23 DC Hydralazine HCl (Apresoline) 10 mg TID PO 02/11/19 21:00 02/18/19 08:25 Magnesium Hydroxide (Milk Of Magnesia) 30 ml DAILYPRN PRN PO CONSTIPATION 02/11/19 16:45 Menthol/Methyl Salicylate (Bengay Cream) apply to bilateral thighs QID TOP 02/13/19 11:15 02/18/19 08:25 Miscellaneous (Unresolved Clarification Entry) SEE LABEL COMMENTS DAILY XX 02/18/19 09:00 02/18/19 10:29 DC Multivitamins (Theragram-M) 1 tab DAILY PO 02/12/19 09:00 02/18/19 08:25 Omeprazole (PriLOSEC) 20 mg DAILY PO 02/12/19 09:00 02/18/19 08:25 Ondansetron HCl (Zofran) 4 mg Q6HP PRN PO NAUSEA 02/11/19 16:45 Senna (Senokot) 2 tab QHS PO 02/11/19 21:00 02/14/19 21:16 Spironolactone (Aldactone) 25 mg QAM PO 02/12/19 09:00 02/18/19 08:26 Tizanidine HCl (Zanaflex) 4 mg 0700,1200,1700,2100 PO 02/11/19 17:00 02/18/19 06:16 Tizanidine HCl (Zanaflex) 4 mg DAILY@0200 PO 02/15/19 02:00 02/18/19 02:09 Tramadol HCl (Ultram) 25 mg QHS PRN PO PAIN >6 02/11/19 16:45 02/13/19 10:52 DC 02/13/19 01:24 Tramadol HCl (Ultram) 25 mg TID@0700,1200,1700 PO 02/11/19 17:00 02/13/19 10:52 DC 02/13/19 06:08 Tramadol HCl (Ultram) 50 mg BID@0700,1100 PO 02/13/19 11:00 02/18/19 06:17 Tramadol HCl (Ultram) 50 mg BID@1500,1900 PO 02/13/19 15:00 02/17/19 18:03 Tramadol HCl (Ultram) 50 mg DAILY@0200 PO 02/15/19 02:00 02/18/19 02:10 Tramadol HCl (Ultram) 50 mg QHS PRN PO PAIN >6 02/13/19 11:00 02/14/19 01:23 Vitamin D (Vitamin D) 2,000 units DAILY PO 02/12/19 09:00 02/18/19 08:26 GENA BERMUDEZ MD Feb 18, 2019 10:57
--- NOTE | 2019-02-18 12:34 | IPNPDOC ---
Text Note Date of Service The patient was seen on 02/18/19. NOTE Subjective: Patient is a 68-year-old female with a past medical history of chronic lumbar back pain with lower extremity radicular pain and neurogenic claudication s/p multi-level lumbar surgery in 2011, CHF, HLD, HTN, history of uterine cancer, VICKY on CPAP, COPD, CAD who was admitted to the ARU from [facility] after she had an L1-S1 decompression, trans-facet decompression of left L5-s1, instrumentation of L3-s1 with fusion of L1-S1 and evacuation of epidural lipomatosis for spinal stenosis by Dr. Smith on 02/06. Her post op course was relatively uneventful with noted blood loss anemia, pain management and an initial wound vac that was eventually removed and transferred to [facility] ARU with a gauze dressing. Patient was seen and examined at the bedside. Patient denies any chest pain, shortness of breath or palpitations. They report some back pain that is relieved with pain medications. They deny any abdominal pain, constipation, or urinary discomfort. They have been progressing with physical therapy. Objective: Vitals (See below) General: Lying in bed, no acute distress, comfortable, AAOx3 HEENT: NC, AT CVS: RRR, +S1S2 Lungs: Fair air entry b/l, -w/r/r Abdomen: Soft, ND, NT Extremities: - Edema, - Calf tenderness Assessment and plan: Compensated chronic systolic CHF - No evidence of exacerbation - c/w fluid restriction of 1800cc - c/w Furosemide, Spironolactone Chronic HTN - BP remains well controlled - c/w Hydralazine and Carvedilol DLP - c/w Atorvastatin VICKY on CPAP - may continue home CPAP use while inpatient History of COPD - No evidence of exacerbation - c/w inhaled therapy as ordered Neuropathic radicular pain - c/w Gabapentin and Duloxetine - c/w Tizanidine and Tramadol PRN GI prophylaxis - c/w Omeprazole DVT prophylaxis - c/w Lovenox Disposition: - c/w PT and OT VS,Fishbone, I+O VS, Fishbone, I+O Vital Signs Date Time Temp Pulse Resp B/P (MAP) Pulse Ox O2 Delivery O2 Flow Rate FiO2 02/18/19 11:45 16 02/18/19 08:25 148/84 02/18/19 08:25 80 02/18/19 06:00 96.0 94 Room Air I&O- Last 24 Hours up to 6 AM 02/18/19 06:00 Intake Total 760 ml Balance 760 ml PHILIP APONTE MD Feb 18, 2019 12:34
[2019-02-18 14:00] VITALS: BP 104/54
[2019-02-18 20:00] VITALS: BP 104/56
[2019-02-18] MEDS: SENNA 8.6 MG TAB (SENOKOT) PO SCH (21:00)
[2019-02-19] MEDS: traMADol 50 MG TAB PO SCH ×5 (02:05→18:00)
[2019-02-19] MEDS: tiZANidine 4 MG TAB PO SCH ×5 (02:06→21:46)
[2019-02-19 06:00] VITALS: BP 156/68
[2019-02-19] MEDS: DOCUSATE SODIUM 100 MG CAP PO SCH ×2 (09:00→21:00)
[2019-02-19] MEDS: CARVedilol 12.5 MG TAB PO SCH ×2 (09:46→21:47)
[2019-02-19] MEDS: ENOXAPARIN 40 MG/0.4 ML SYRINGE (J1650) SC SCH (09:47)
[2019-02-19] MEDS: ASCORBIC ACID 500 MG TAB PO SCH (09:47)
[2019-02-19] MEDS: SPIRONOLACTONE 25 MG TAB PO SCH (09:47)
[2019-02-19] MEDS: FEXOFENADINE 60 MG TAB PO SCH (09:47)
[2019-02-19] MEDS: **hydrALAZINE** 10 MG TAB PO SCH ×3 (09:48→21:46)
[2019-02-19] MEDS: ACETAMINOPHEN 500 MG TAB PO SCH ×3 (09:48→21:43)
[2019-02-19] MEDS: MULTIVITAMINS/MINERALS THERAP 1 TAB PO SCH (09:48)
[2019-02-19] MEDS: ATORVASTATIN 20 MG TAB PO SCH (09:48)
[2019-02-19] MEDS: DULoxetine 30 MG CAP (CYMBALTA) PO SCH (09:48)
[2019-02-19] MEDS: GABAPENTIN 300 MG CAP PO SCH ×3 (09:48→21:41)
[2019-02-19] MEDS: OMEPRAZOLE 20 MG CAP PO SCH (09:48)
[2019-02-19] MEDS: FUROSEMIDE 40 MG TAB PO SCH (09:49)
[2019-02-19] MEDS: ANALGESIC BALM CRM 120 GM TOP SCH ×4 (09:49→21:47)
--- NOTE | 2019-02-19 10:19 | IPNPDOC ---
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 REVIEW OF SYSTEMS: The following is a completed review of systems and has been reviewed. Review of systems otherwise unremarkable. PAIN: Patient self reports bilat upper thigh spasms EYES: No recent vision changes EARS, NOSE, & THROAT: No throat pain, or dysphagia, or rhinorrhea CARDIOVASCULAR: Denies chest pain or palpitations PULMONARY: Denies shortness of breath GASTROINTESTINAL: Denies constipation/diarrhea GENITOURINARY: +dysuria MUSCULOSKELETAL: bilat LE pain NEUROLOGICAL:neurogenic claudication (chronic) HEMATOLOGICAL: denies easy bruising SKIN: surgical incision PSYCHIATRIC: Unremarkable All other review of systems found to be negative. PHYSICAL EXAMINATION: VITAL SIGNS: Please see below. GENERAL: Pleasant and cooperative. No acute distress. obese HEENT: PERRL. Extraocular movements intact. Clear conjunctiva CARDIOVASCULAR: Regular rate and rhythm. No murmurs, rubs, or gallops LUNGS: Clear to auscultation bilaterally. No wheezes. No rhonchi ABDOMEN: Soft, nontender, nondistended. Positive bowel sounds. Normal active bowel sounds NEUROLOGICAL: Alert and oriented times three. Cranial nerves II through XII grossly intact. Sensation grossly intact in all 4 extremities, decrease in sensation bilat lateral upper thighs EXTREMITIES: 5\5 strength bilateral upper extremities. 5\5 strength right knee extension, ankle DF. EHL,a nd PF (hip flexion >3/5 limited by pain). 5/5 strength in left knee extension, ankle DF. EHL, and PF (hip flexion >3/5 limited by pain). SKIN: back surgical incision with dressing, fely-wound without induration or erythema ASSESSMENT:68-year-old F with past medical history of chronic low back pain, CHF, obesity who presents status post L1-S1 decompression and fusion. PLAN: 1. Rehab- PT- advance gait training, maintain spinal precautions, ambulating with RW- c/u room privileges OT- advance ADL, provide adaptive equipment for spinal precautions, energy conservation 2. Neuro: no active issues 3. CArdiac: hx CHF, c/u lasix and spironolactone, c/u restrict to 1800cc -f/u with cardiology on d/c -HTN c/u beta-gold and hydralazine, medicine consulted to assist in management -HLD c/u statin 4. Resp: hx VICKY on CPAP, hx COPD -DUonebs prn, encourage incentive spirometry 5. Pain: increased Cymbalta to 60mg daily, c/u tramadol, and tizanidine-stable -c/u gabapentin 600 TID 6. : monitor PVRs, UA negative 7. GI ppx: omeprazole 8. DVT ppx: lovenox 9. Dispo: 02-20-19 to home, progressing towards goals Allergies Coded Allergies: erythromycin base (Verified Allergy, Severe, ANAPHYLAXIS, 11/12/18) MARY LOU Inhibitors (Verified Allergy, Unknown, WAS TOLD BY HER PROFESSOR OF FOOD BIOCHEMISTRY THIS IS RELATED TO ERYTHROMYCIN, 02/11/19) isosorbide (Verified Adverse Reaction, Mild, headache, 11/12/18) Vital Signs Vital Signs Date Time Temp Pulse Resp B/P (MAP) Pulse Ox O2 Delivery O2 Flow Rate FiO2 02/19/19 09:46 78 157/70 02/19/19 07:01 18 02/19/19 06:00 96.7 95 Room Air Current Medications Current Medications Current Medications Medications (Trade) Dose Ordered Sig/Barbara Route PRN Reason Start Time Stop Time Status Last Admin Dose Admin Acetaminophen (Tylenol Tab) 1,000 mg TID PO 02/11/19 21:00 02/19/19 09:48 Ascorbic Acid (Vitamin C) 1,000 mg DAILY PO 02/12/19 09:00 02/19/19 09:47 Atorvastatin Calcium (Lipitor) 40 mg DAILY PO 02/12/19 09:00 02/19/19 09:48 Carvedilol (COReg) 25 mg BID PO 02/11/19 21:00 02/19/19 09:46 Docusate Sodium (Colace) 100 mg BID PO 02/11/19 21:00 02/17/19 09:22 Duloxetine HCl (Cymbalta) 60 mg DAILY PO 02/11/19 09:00 02/19/19 09:48 Enoxaparin Sodium (Lovenox) 40 mg DAILY SC 02/12/19 09:00 02/19/19 09:47 Fexofenadine HCl (Joseline) 180 mg DAILY PO 02/12/19 09:00 02/19/19 09:47 Furosemide (Lasix) 40 mg DAILY PO 02/12/19 09:00 02/19/19 09:49 Gabapentin (Neurontin) 300 mg TID PO 02/11/19 21:00 02/13/19 10:52 DC 02/13/19 09:02 Gabapentin (Neurontin) 600 mg TID PO 02/13/19 16:00 02/19/19 09:48 Home Med (Med Rec Complete!) ASDIRECTED XX 02/11/19 17:00 02/11/19 17:23 DC Hydralazine HCl (Apresoline) 10 mg TID PO 02/11/19 21:00 02/19/19 09:48 Magnesium Hydroxide (Milk Of Magnesia) 30 ml DAILYPRN PRN PO CONSTIPATION 02/11/19 16:45 Menthol/Methyl Salicylate (Bengay Cream) apply to bilateral thighs QID TOP 02/13/19 11:15 02/19/19 09:49 Miscellaneous (Unresolved Clarification Entry) SEE LABEL COMMENTS DAILY XX 02/18/19 09:00 02/18/19 10:29 DC Multivitamins (Theragram-M) 1 tab DAILY PO 02/12/19 09:00 02/19/19 09:48 Omeprazole (PriLOSEC) 20 mg DAILY PO 02/12/19 09:00 02/19/19 09:48 Ondansetron HCl (Zofran) 4 mg Q6HP PRN PO NAUSEA 02/11/19 16:45 Senna (Senokot) 2 tab QHS PO 02/11/19 21:00 02/14/19 21:16 Spironolactone (Aldactone) 25 mg QAM PO 02/12/19 09:00 02/19/19 09:47 Tizanidine HCl (Zanaflex) 4 mg 0700,1200,1700,2100 PO 02/11/19 17:00 02/19/19 07:01 Tizanidine HCl (Zanaflex) 4 mg DAILY@0200 PO 02/15/19 02:00 02/19/19 02:06 Tramadol HCl (Ultram) 25 mg QHS PRN PO PAIN >6 02/11/19 16:45 02/13/19 10:52 DC 02/13/19 01:24 Tramadol HCl (Ultram) 25 mg TID@0700,1200,1700 PO 02/11/19 17:00 02/13/19 10:52 DC 02/13/19 06:08 Tramadol HCl (Ultram) 50 mg BID@0700,1100 PO 02/13/19 11:00 02/19/19 07:01 Tramadol HCl (Ultram) 50 mg BID@1500,1900 PO 02/13/19 15:00 02/18/19 18:38 Tramadol HCl (Ultram) 50 mg DAILY@0200 PO 02/15/19 02:00 02/19/19 02:05 Tramadol HCl (Ultram) 50 mg QHS PRN PO PAIN >6 02/13/19 11:00 02/14/19 01:23 Vitamin D (Vitamin D) 2,000 units DAILY PO 02/12/19 09:00 02/18/19 08:26 GENA BERMUDEZ MD Feb 19, 2019 10:19
[2019-02-19] MEDS ORDERED: FEXO60CA PO (11:00)
[2019-02-19] MEDS ORDERED: CARV12.5 PO (11:00)
[2019-02-19] MEDS ORDERED: TRAM50TA2 PO (11:00)
[2019-02-19] MEDS ORDERED: HYDR10TAB PO (11:00)
[2019-02-19] MEDS ORDERED: CYMB1CAP5 PO (11:00)
[2019-02-19] MEDS ORDERED: ATOR1TAB21 PO (11:00)
[2019-02-19] MEDS ORDERED: TIZA4TAB4 PO (11:00)
[2019-02-19] MEDS ORDERED: GABA-843 PO (11:00)
[2019-02-19] MEDS ORDERED: ALDA25TA2 PO (11:00)
[2019-02-19] MEDS ORDERED: CHOL100029 PO (11:00)
[2019-02-19] MEDS ORDERED: ASCO50TA PO (11:00)
[2019-02-19] MEDS ORDERED: OMEP-218 PO (11:00)
[2019-02-19] MEDS ORDERED: FURO40TA2 PO (11:00)
[2019-02-19] MEDS: VITAMIN D 1,000 INTERNATIONAL UNITS TABLET PO SCH (14:01)
[2019-02-19 14:50] VITALS: BP 140/63
[2019-02-19 20:00] VITALS: BP 125/57
[2019-02-19] MEDS: SENNA 8.6 MG TAB (SENOKOT) PO SCH (21:00)
[2019-02-20] MEDS: traMADol 50 MG TAB PO SCH ×3 (02:40→11:31)
[2019-02-20] MEDS: tiZANidine 4 MG TAB PO SCH ×3 (02:41→11:31)
[2019-02-20 05:56] VITALS: BP 142/62
[2019-02-20 06:46] LABS: HEMATOCRIT 27.8 % (36.0-47.0); HEMOGLOBIN 8.8 g/dl (12.0-15.5); MEAN CORPUSCULAR HEMOGLOBIN 29.5 pg (27.0-33.0); MEAN CORPUSCULAR HGB CONC 31.7 g/dl (32.0-36.5); MEAN CORPUSCULAR VOLUME 93.3 fl (80.0-96.0); PLATELET COUNT, AUTOMATED 430 10^3/uL (150-450); RED BLOOD COUNT 2.98 10^6/uL (4.00-5.40); WHITE BLOOD COUNT 7.4 10^3/uL (4.0-10.0)
[2019-02-20] MEDS: DOCUSATE SODIUM 100 MG CAP PO SCH (09:00)
[2019-02-20] MEDS: ATORVASTATIN 20 MG TAB PO SCH (09:05)
[2019-02-20] MEDS: ENOXAPARIN 40 MG/0.4 ML SYRINGE (J1650) SC SCH (09:05)
[2019-02-20] MEDS: DULoxetine 30 MG CAP (CYMBALTA) PO SCH (09:05)
[2019-02-20] MEDS: FEXOFENADINE 60 MG TAB PO SCH (09:06)
[2019-02-20 09:07] VITALS: BP 132/62
[2019-02-20] MEDS: CARVedilol 12.5 MG TAB PO SCH (09:07)
[2019-02-20] MEDS: MULTIVITAMINS/MINERALS THERAP 1 TAB PO SCH (09:07)
[2019-02-20] MEDS: ACETAMINOPHEN 500 MG TAB PO SCH (09:07)
[2019-02-20] MEDS: OMEPRAZOLE 20 MG CAP PO SCH (09:07)
[2019-02-20] MEDS: ASCORBIC ACID 500 MG TAB PO SCH (09:08)
[2019-02-20] MEDS: VITAMIN D 1,000 INTERNATIONAL UNITS TABLET PO SCH (09:08)
[2019-02-20] MEDS: **hydrALAZINE** 10 MG TAB PO SCH (09:08)
[2019-02-20] MEDS: GABAPENTIN 300 MG CAP PO SCH (09:08)
[2019-02-20] MEDS: SPIRONOLACTONE 25 MG TAB PO SCH (09:09)
[2019-02-20] MEDS: FUROSEMIDE 40 MG TAB PO SCH (09:09)
[2019-02-20] MEDS: ANALGESIC BALM CRM 120 GM TOP SCH (09:12)
--- NOTE | 2019-02-20 11:25 | IPNPDOC ---
Text Note Date of Service The patient was seen on 02/20/19. NOTE Subjective: Patient is a 68-year-old female with a past medical history of chronic lumbar back pain with lower extremity radicular pain and neurogenic claudication s/p multi-level lumbar surgery in 2011, CHF, HLD, HTN, history of uterine cancer, VICKY on CPAP, COPD, CAD who was admitted to the ARU from [facility] after she had an L1-S1 decompression, trans-facet decompression of left L5-s1, instrumentation of L3-s1 with fusion of L1-S1 and evacuation of epidural lipomatosis for spinal stenosis by Dr. Smith on 02/06. Her post op course was relatively uneventful with noted blood loss anemia, pain management and an initial wound vac that was eventually removed and transferred to [facility] ARU with a gauze dressing. Patient was seen and examined at the bedside. Patient has been progressing well with physical therapy and has been cleared for discharge home today. She denies any chest pain, shortness of breath, palpitations, abdominal pain, constipation, or urinary discomfort. Objective: Vitals (See below) General: Lying in bed, no acute distress, comfortable, AAOx3 HEENT: NC, AT CVS: RRR, +S1S2 Lungs: Fair air entry b/l, auscultation is free of rhonchi, rales or wheezing Abdomen: Soft, nondistended and nontender Extremities: No evidence of lower extremity edema, - Calf tenderness Assessment and plan: Compensated chronic systolic CHF - No evidence of exacerbation - c/w fluid restriction of 1800cc - c/w Furosemide and Spironolactone - We'll have outpatient follow-up with primary care provider Chronic HTN - BP remains well controlled on current regimen - c/w Hydralazine and Carvedilol DLP - c/w Atorvastatin VICKY on CPAP - may continue home CPAP use while inpatient History of COPD - No evidence of exacerbation - c/w inhaled therapy as ordered Neuropathic radicular pain - c/w Gabapentin and Duloxetine - c/w Tizanidine and Tramadol PRN GI prophylaxis - c/w Omeprazole DVT prophylaxis - c/w Lovenox Disposition: - Patient will be discharged home today VS,Sundeep, I+O VS, Sundeep, I+O Laboratory Tests 02/20/19 06:37 Vital Signs Date Time Temp Pulse Resp B/P (MAP) Pulse Ox O2 Delivery O2 Flow Rate FiO2 02/20/19 09:07 70 132/62 02/20/19 07:42 18 02/20/19 05:56 97.1 96 Room Air I&O- Last 24 Hours up to 6 AM 02/20/19 06:00 Intake Total 640 ml Balance 640 ml PHILIP APONTE MD Feb 20, 2019 11:25
--- NOTE | 2019-02-23 16:57 | PMRDS ---
DATE OF ADMISSION: 02/11/2019 DATE OF DISCHARGE: 02/20/2019 CHIEF COMPLAINT/DISCHARGE DIAGNOSIS: Spinal stenosis status post laminectomy. HISTORY OF PRESENT ILLNESS: A 68-year-old female with a past medical history of chronic low back pain with neurogenic claudication status post multilevel lumbar interspinous spacers placed 2011, congestive heart failure (CHF), hyperlipidemia, hypertension, chronic obstructive pulmonary disease (COPD), coronary artery disease (CAD) with worsening weakness in her legs and pain, admitted to [facility]. She underwent an L1-S1 decompression and fusion on 02/06/2019. The patient had postoperative anemia and difficulty managing her pain. Wound vacuum-assisted closure (VAC) was initially placed on her incision and then change to gauze dressing. She was evaluated by therapy and found to have impairments in mobility and activities of daily living (ADLs) and deemed medically appropriate discharge to acute rehabilitation unit (ARU) on 02/11/2019. On initial evaluation, the patient reports her radiating leg pain is better since the surgery and that she is mostly having low back and upper thigh spasms now. She reports a burning with urination. PAST MEDICAL HISTORY: As per history of present illness (HPI). HOSPITAL COURSE: The patient was admitted and enrolled in a comprehensive physical therapy (PT), occupational therapy (OT) program. She received 24-hour nursing supervision and weekly team meetings were held to discuss her progress. The patient was able to maintain her spinal precautions and her pain was treated with increased dosing of Cymbalta 60 mg daily, tramadol, tizanidine and increased gabapentin. Urinalysis was negative on admission and the patient's dysuria resolved. The patient's blood pressure was maintained with her home medications and was recently well-controlled during her hospital course. She was maintained on Lasix and spironolactone for her history of congestive heart failure (CHF) and placed on a fluid restriction. The patient performed very well in therapy and was deemed medically and functionally stable to return home. DISCHARGE MEDICATIONS: As per instructions. FUNCTIONAL HISTORY: On discharge, the patient was modified independent for all functional transfers, able to ambulate with a rolling walker 150 feet at a modified independent level. She was also modified independent for dressing and toileting. Thank you for this referral.
== END 2019-02-20 13:00 | disposition home or self-care (01) | DRG 552 ==
LOC: M PM&R 14:50
PROVIDERS: ADMIT Physical Medicine & Rehabilitation; ATTEND Physical Medicine & Rehabilitation
DX: M51.16 Intervertebral disc disorders with radiculopathy, lumbar region (principal); Z68.41 Body mass index [BMI] 40.0-44.9, adult; M48.062 Spinal stenosis, lumbar region with neurogenic claudication; I50.9 Heart failure, unspecified; E78.5 Hyperlipidemia, unspecified; I11.0 Hypertensive heart disease with heart failure; G47.33 Obstructive sleep apnea (adult) (pediatric); J44.9 Chronic obstructive pulmonary disease, unspecified; I25.10 Atherosclerotic heart disease of native coronary artery without angina pectoris; R30.0 Dysuria; E66.9 Obesity, unspecified; M79.661 Pain in right lower leg; M79.662 Pain in left lower leg; Z90.710 Acquired absence of both cervix and uterus; Z85.42 Personal history of malignant neoplasm of other parts of uterus; Z87.891 Personal history of nicotine dependence; Z98.1 Arthrodesis status; Z79.1 Long term (current) use of non-steroidal anti-inflammatories (NSAID); Z79.899 Other long term (current) drug therapy; Z88.1 Allergy status to other antibiotic agents; Z88.8 Allergy status to other drugs, medicaments and biological substances

== ENCOUNTER → 2019-03-03 | Outpatient (RCR) | payer MEDICARE ==
[~2019-03-03] MED LIST changes: +ACET-907 PO; +ALDA25TA2 PO; +ASCO50TA PO; +ATOR1TAB21 PO; +C 50TAB PO; +CARV12.5 PO; +CHOL100029 PO; +COLA100C5 PO; +CYMB1CAP5 PO; +FEXO60CA PO; +LIDO5TD TOP; +LOVE1INJ SC; +MELO15TA28 PO; +OMEP-218 PO; +OXYC-517 PO; +OYST1TAB PO; +SENN8.6T58 PO; +SPIR-10 PO; +TIZA4TAB4 PO; +TRAM50TA2 PO; +VITA100066 PO
== END ==
LOC: M PT 02-23 10:30
PROVIDERS: ATTEND Family Medicine
DX: M51.26 Other intervertebral disc displacement, lumbar region (principal)
CPT/HCPCS: 97110; 97140; 97162; G0283

== ENCOUNTER 2019-03-31 09:11 | Outpatient (RCR) | payer MEDICARE ==
[~2019-03-31 09:11] MED LIST changes: -OMEP-172 PO; +OMEP1CAP73 PO
== END 2019-04-03 ==
LOC: M PT 09:11
PROVIDERS: ATTEND Family Medicine
DX: M48.00 Spinal stenosis, site unspecified (principal)

== ENCOUNTER 2019-04-28 08:07 | Outpatient (RCR) | payer MEDICARE | END 2019-05-02 | LOC: M PT 08:07 | PROVIDERS: ATTEND Family Medicine | DX: Z51.89 Encounter for other specified aftercare (principal); M48.00 Spinal stenosis, site unspecified ==

== ENCOUNTER 2019-05-12 09:12 | Outpatient (RCR) | payer MEDICARE | END 2019-06-02 | LOC: M PT 09:12 | PROVIDERS: ATTEND Family Medicine | DX: Z51.89 Encounter for other specified aftercare (principal); M48.061 Spinal stenosis, lumbar region without neurogenic claudication ==

== ENCOUNTER → 2019-05-14 | Outpatient (CLI) | payer MEDICARE ==
--- NOTE | 2019-05-14 12:15 | REP ---
Bilateral lower extremity arterial Doppler ultrasound: History: Intermittent claudication bilateral legs. Findings: Ankle brachial indices are normal measured at 1.1 on the right and 1.1 on the left. A mild amount of plaquing is visible bilaterally. Normal triphasic waveforms are noted throughout the lower extremities bilaterally except distally in the posterior and anterior tibial arteries on the right and the proximal WOOL SUPPLIER on the left where there is biphasic flow. No high-grade stenosis is seen on either side. Right lower extremity arterial Doppler velocity chart: CF A 112 cm/S Profunda 77 Proximal SFA 87 Mid SFA 90 Distal SFA 82 Popliteal 51 Proximal AT A 30 Tibioperoneal trunk 72 Proximal WOOL SUPPLIER 60 Distal WOOL SUPPLIER 18 Distal AT A 53 Left lower extremity arterial Doppler velocity chart: CF A 97 cm/S Profunda 79 Proximal SFA 91 Mid SFA 105 Distal SFA 76 Popliteal 62 Proximal AT A 68 Tibioperoneal trunk 64 Proximal WOOL SUPPLIER 57 Distal WOOL SUPPLIER 70 Distal AT A 77 Electronically Signed by Morro Alicea MD 05/14/2019 12:06 P
== END ==
LOC: M RAD 09:39
PROVIDERS: ATTEND Physician Assistant
DX: I70.213 Atherosclerosis of native arteries of extremities with intermittent claudication, bilateral legs (principal)

== ENCOUNTER → 2019-08-05 | Outpatient (CLI) | payer MEDICARE ==
[~2019-08-05] MED LIST changes: +CYCL-707 PO; -CYCL10TA PO
--- NOTE | 2019-08-05 14:13 | REP ---
REASON FOR EXAM: Tobacco abuse. All priors were reviewed, the latest of which is dated 08/20/2018. As per the protocol, only lung window images were sent to the read station for interpretation. There are no new abnormal nodules, masses, or opacities. IMPRESSION: Stable CT findings as described above. No change from the prior exam. Lung RADS category 2 exam. Yearly lung screening recommended provided the patient's risk factors remain high. Electronically Signed by Perfecto Santiago DO 08/05/2019 03:22 P
== END ==
LOC: M RAD 13:24
PROVIDERS: ATTEND Family Medicine
DX: Z12.2 Encounter for screening for malignant neoplasm of respiratory organs (principal); Z87.891 Personal history of nicotine dependence

== ENCOUNTER → 2019-08-10 | Outpatient (CLI) | payer MEDICARE ==
--- NOTE | 2019-08-11 03:39 | REP ---
REASON FOR EXAM: Revision followup. Latest prior for comparison is 10/26/2015. Since the last examination, transpedicular screws have been placed L3 through S1 bilaterally. Flexion and extension bending views show no evidence of instability. There is disc space narrowing at every level, status quo, with air density seen in the L1-2 and L2-3 disc spaces consistent with vacuum phenomena from degenerative disc disease. There is no significant change in appearance of vertebral body height or alignment. Previous laminectomy noted. IMPRESSION: Chronic changes and postoperative changes, as described above. Electronically Signed by Perfecto Santiago DO 08/11/2019 11:12 A
== END ==
LOC: M RAD 08:56
PROVIDERS: ATTEND Orthopaedic Surgery
DX: M54.5 Low back pain (principal); Z98.890 Other specified postprocedural states; M51.36 Other intervertebral disc degeneration, lumbar region

== ENCOUNTER → 2019-12-17 | Outpatient (CLI) | payer MEDICARE ==
[~2019-12-17] MED LIST changes: -CHOL100029 PO; +CHOL25TA2 PO
--- NOTE | 2019-12-17 12:56 | REPMRS ---
Patient History The patient states she had a clinical breast exam in 12/2019. No known family history of cancer. Took unspecified hormones for 25 years. Digital Woman Screen Mammo: December 17, 2019 - Exam #: [id number] Bilateral CC and MLO view(s) were taken. Technologist: Mary Jo Calvin, Technologist Prior study comparison: November 11, 2018, bilateral digital woman screen mammo performed at [facility]. October 16, 2017, bilateral digital woman screen mammo performed at [facility]. September 05, 2016, digital woman screen mammo performed at [facility]. FINDINGS: There are scattered fibroglandular densities. The Volpara volumetric breast density category is:B. There has been no change in the appearance of the mammogram from the prior studies. There is a mild amount of scattered fibroglandular density which is fairly symmetric. There is no interval development of dominant mass, architectural distortion, or grouped microcalcification suggestive of malignancy. 3-D tomosynthesis shows no additional findings. Assessment: BI-RADS/ACR category 1 mammogram. Negative Mammogram. Recommendation Routine screening mammogram of both breasts in 1 year (for women over age 40). This patient's Lifetime Breast Cancer Risk is estimated at 4.3 %. This mammogram was interpreted with the aid of an FDA-approved computer-aided dectection system. Electronically Signed By: Oscar Alicea MD 12/17/19 [id number]
== END ==
LOC: M WHC 11:33
PROVIDERS: ATTEND Nurse Practitioner Family
DX: Z12.31 Encounter for screening mammogram for malignant neoplasm of breast (principal); Z92.29 Personal history of other drug therapy

== ENCOUNTER → 2020-03-24 | Outpatient (CLI) | payer MEDICARE ==
[~2020-03-24] MED LIST changes: +GABA-282 PO; -GABA-843 PO; -LISI-542; +LISI-898
--- NOTE | 2020-03-29 09:35 | REP ---
INDICATION: ABN FINDING OF LUNG COMPARISON: 08/20/2018, 08/05/2019 TECHNIQUE: Axial noncontrast images from the thoracic inlet to the upper abdomen with coronal and sagittal reformations. This CT examination was performed using the following dose reduction techniques: Automated exposure control, adjustment of mA and/or kv according to the patient's size, and use of iterative reconstruction technique. FINDINGS: There is a 10 mm nodule along the anterior margin of the right hilum in the right upper lobe (series 201, image 44). Which appears slightly increased in size from prior examination. No further suspicious nodule or mass lesion identified. The lung white are otherwise well aerated and demonstrate minimal linear fibroatelectatic changes similar to prior examination. No effusion. No pneumothorax. Tracheobronchial tree is patent. No obvious adenopathy. Further evaluation of the mediastinum demonstrates stable atherosclerotic changes to the thoracic aorta and coronary arteries. No aortic aneurysm or cardiomegaly. Small hiatal hernia at the gastroesophageal junction noted. Surrounding musculoskeletal structures are intact. IMPRESSION: 1. 10 mm nodule in the perihilar right upper lobe which may be slightly increased in size from prior examination. Consider PET-CT evaluation for further investigation. <Electronically signed by Kurt Myles > 03/29/20 [id number]
== END ==
LOC: M RAD 11:05
PROVIDERS: ATTEND Internal Medicine Pulmonary Disease
DX: R91.1 Solitary pulmonary nodule (principal)

== ENCOUNTER → 2020-05-09 | Outpatient (CLI) | payer MEDICARE ==
--- NOTE | 2020-05-09 12:34 | REP ---
INDICATION: DIAGNOSING SOLITARY PULMONARY NODULE`. COMPARISON: Comparison is made with multiple prior chest CT studies dating back to April of 2018. The most recent prior chest CT study is from March 24, 2020. This revealed a 10 mm perihilar nodule in the right upper lobe. There is a comparison PET-CT study from May 27, 2018 as well.. TECHNIQUE: 1 hour 11 minutes following the intravenous injection of a 16.05 mCi dose of F-18 FDG, three-dimensional PET scintigraphy is acquired from the skull base to the proximal thighs. Triplanar noncontrast CT scanning is acquired through the same anatomic range for attenuation correction, and image registration with scan parameters optimized to minimize radiation exposure to the patient. PET scintigraphy and CT datasets were fused and displayed on a workstation with multiplanar and projection display capability. FINDINGS: Head and neck soft tissues are unremarkable. The perihilar right upper lobe nodule seen on recent CT study is seen to be hypermetabolic on today's PET scintigraphy. Maximum standard uptake value in this right upper lobe nodule is 7.26. There is no hilar or mediastinal nima hypermetabolic uptake. No other abnormal pulmonary parenchymal uptake is seen. In the abdomen and pelvis, normal hepatic, splenic, gastrointestinal, and genitourinary FDG accumulation is seen. Increased uptake is against noted in the region of the anus which is essentially unchanged from the study done 2 years ago and therefore, most likely related to hemorrhoids or physiologic uptake. No abnormal adrenal uptake is seen. IMPRESSION: The 1 cm nodule in the perihilar region of the right upper lobe is hypermetabolic and considered suspicious for primary lung malignancy. <Electronically signed by Oscar Alicea > 05/09/20 [id number]
== END ==
LOC: M PLARAD 07:27
PROVIDERS: ATTEND Internal Medicine Pulmonary Disease
DX: R91.1 Solitary pulmonary nodule (principal)
CPT/HCPCS: 78815; A9552

== ENCOUNTER → 2020-05-19 | Outpatient (CLI) | payer MEDICARE ==
[2020-05-19 15:51] LABS: BASO % 0.4 % (0.0-1.0); EOS # 0.1 10^3/uL (0.0-0.5); EOS % 1.3 % (0.0-3.0); HEMATOCRIT 36.5 % (36.0-47.0); LYMPH # 1.2 10^3/uL (1.5-5.0); LYMPH % 17.7 % (24.0-44.0); MEAN CORPUSCULAR HEMOGLOBIN 31.8 pg (27.0-33.0); MEAN CORPUSCULAR HGB CONC 32.9 g/dl (32.0-36.5); MEAN CORPUSCULAR VOLUME 96.8 fl (80.0-96.0); MONO # 0.7 10^3/uL (0.0-0.8); MONO % 10.9 % (2.0-8.0); NEUTROPHILS # 4.7 10^3/uL (1.5-8.5); NEUTROPHILS % 69.4 % (36.0-66.0); PLATELET COUNT, AUTOMATED 242 10^3/uL (150-450); RED BLOOD COUNT 3.77 10^6/uL (4.00-5.40); WHITE BLOOD COUNT 6.8 10^3/uL (4.0-10.0)
[2020-05-19 16:29] LABS: CALCIUM LEVEL 9.4 MG/DL (8.8-10.2); CREATININE FOR GFR 1.07 MG/DL (0.55-1.30); GLOMERULAR FILTRATION RATE 53.7 (>39); POTASSIUM SERUM 5.3 MEQ/L (3.5-5.1); THYROID STIMULATING HORMONE 0.966 uIU/ML (0.358-3.740); THYROXINE (T4) 7.4 UG/DL (4.5-12.0)
== END ==
LOC: M PLALAB 11:49
PROVIDERS: ATTEND Thoracic Surgery (Cardiothoracic Vascular Surgery)
DX: Z01.812 Encounter for preprocedural laboratory examination (principal); R53.83 Other fatigue; R91.1 Solitary pulmonary nodule

== ENCOUNTER → 2020-06-08 | Outpatient (CLI) | payer MEDICARE ==
[~2020-06-08] MED LIST changes: +ISOVUE-370 76% 100ML VIAL As Ordered ONE
--- NOTE | 2020-06-08 11:24 | REP ---
INDICATION: ABNORMAL FINDING OF LUNG FIELD. COMPARISON: Chest CT dated 03/24/2020 and PET scan dated 05/09/2020 TECHNIQUE: Chest CT with IV contrast. FINDINGS: The patient has a known 10 mm nodule in the right upper lobe and in the right hilus. This nodule was hypermetabolic on the comparison PET scan. The nodules again identified today, unchanged in size or location. Is in the right upper lobe near the right hilus just superior to the right upper lobe pulmonary vein and just inferior to the right upper lobe pulmonary artery on the coronal images. There are no other lung masses or nodules. There are no infiltrates or pleural effusions. There is no mediastinal or hilar lymph node enlargement. There is no axillary lymphadenopathy. The thoracic aorta is unremarkable. Cardiac size is normal. No pericardial effusion. The upper abdomen the visualized areas of the liver, gallbladder, spleen and pancreas are unremarkable. There is no adrenal nodule. The adrenals are unremarkable. Visualized renal upper poles are unremarkable. IMPRESSION: No change from the comparison study. There is a 10 mm nodule in the right upper lobe near the right hilus as described above. There are no new lung nodules. There are no infiltrates or effusions. There is no adenopathy. No adrenal nodule or mass. <Electronically signed by José Miguel Ledesma > 06/08/20 [id number]
== END ==
LOC: M RAD 10:02
PROVIDERS: ATTEND Thoracic Surgery (Cardiothoracic Vascular Surgery)
DX: R91.1 Solitary pulmonary nodule (principal)
CPT/HCPCS: 71260; Q9967

== ENCOUNTER → 2020-06-14 | Outpatient (CLI) | payer MEDICARE ==
[~2020-06-14] MED LIST changes: -ISOVUE-370 76% 100ML VIAL As Ordered ONE
--- NOTE | 2020-06-14 16:07 | RADONC.CN ---
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 Her lesion is centrally located and adjacent to the pulmonary artery and thus not amenable to biopsy. She is seen for empiric SBRT to address this lesion. Diagnosis/Treatment History Oncologic History 04/25/[address] chest with 3mm central RUL nodule. Grew on subsequent scans from 08/20/18 to 08/05/19. 03/24/20 CT chest Lesion grew to 1 cm 05/09/20 PET-CT lesion proven hypermetabolic, no distant mets or regional adenopathy 05/25/20 Per tumor board review lesion deemed too central to biopsy percutaneously or bronchoscopically PFTs 03/30/20 FVC 1.69 72% pred FEV1 1.22 70% pred FEV1/FVC 95% pred Interval History Here with her . 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 She has chronic fatigue and D OE. Minimal cough. Does not wear O2. Appetite good and weight stable. Past Medical History: COPD CHF GERD HPL HTN Osteoporosis Past Surgical History: Hysterectomy Tonsillectomy Back surgery Colonoscopy Family History: No family hisotry of cancer Social History: 70+ pack year former smoker Drinks 3-4 drinks per day Allergies / Meds Allergies: Coded Allergies: erythromycin base (Verified Allergy, Severe, ANAPHYLAXIS, 11/12/18) MARY LOU Inhibitors (Verified Allergy, Unknown, WAS TOLD BY HER RETURNER THIS IS RELATED TO ERYTHROMYCIN, 02/11/19) isosorbide (Verified Adverse Reaction, Mild, headache, 11/12/18) Home Meds Active Scripts Omeprazole (Omeprazole) 20 Mg Capsule.dr, 20 MG PO DAILY, #30 TABS Prov:GENA BERMUDEZ MD 02/19/19 Spironolactone (Aldactone) 25 Mg Tablet, 25 MG PO QAM, #30 TAB Prov:GENA BERMUDEZ MD 02/19/19 Tizanidine HCl (Tizanidine HCl) 4 Mg Tablet, 4 MG PO QID PRN for SPASMS, #120 TAB Prov:GENA BERMUDEZ MD 02/19/19 Tramadol HCl (Tramadol HCl) 50 Mg Tablet, 50 MG PO Q4H PRN for pain MDD 300 mg, #30 TAB Prov:GENA BERMUDEZ MD 02/19/19 Hydralazine HCl (Hydralazine HCl) 10 Mg Tablet, 10 MG PO TID, #90 TAB Prov:GENA BERMUDEZ MD 02/19/19 Gabapentin (Gabapentin) 300 Mg Capsule, 600 MG PO TID, #180 CAP Prov:GENA BERMUDEZ MD 02/19/19 Furosemide (Furosemide) 40 Mg Tablet, 40 MG PO DAILY, #30 TAB Prov:GENA BERMUDEZ MD 02/19/19 Fexofenadine HCl (Fexofenadine HCl) 60 Mg Tablet, 180 MG PO DAILY, #90 TAB Prov:GENA BERMUDEZ MD 02/19/19 Duloxetine Hcl (Cymbalta) 30 Mg Capsule.dr, 60 MG PO DAILY, #60 TABS Prov:GENA BERMUDEZ MD 02/19/19 Ascorbic Acid (Vitamin C) 500 Mg Tablet, 1000 MG PO DAILY, #60 TAB Prov:GENA BERMUDEZ MD 02/19/19 Cholecalciferol (Vitamin D3) (Vitamin D3) 25 Mcg Tablet, 2000 UNITS PO DAILY, #30 TAB Prov:GENA BERMUDEZ MD 02/19/19 Carvedilol (Carvedilol) 12.5 Mg Tablet, 25 MG PO BID, #120 TAB Prov:GENA BERMUDEZ MD 02/19/19 Atorvastatin Calcium (Atorvastatin Calcium) 20 Mg Tablet, 40 MG PO DAILY, #30 TAB Prov:GENA BERMUDEZ MD 02/19/19 Reported Medications Docusate Sodium (Colace) 100 Mg Capsule, 100 MG PO BID, CAP STARTED AT [facility] 02/11/19 Acetaminophen (Tylenol) 325 Mg Tablet, 650 MG PO Q6H PRN for PAIN, TAB 02/11/19 Ascorbic Acid (Vitamin C) 500 Mg Tablet, 500 MG PO DAILY, TAB 02/11/19 Spironolactone (Spironolactone) 25 Mg Tablet, 25 MG PO DAILY, TAB 02/11/19 Calcium Carbonate (Calcium) 500 Mg Tablet, 500 MG PO BID, TAB 02/11/19 Cholecalciferol (Vitamin D3) (Vitamin D3) 1,000 Unit Tablet, 1000 UNIT PO DAILY, TAB 02/11/19 Omeprazole (Omeprazole) 20 Mg Capsule.dr, 20 MG PO DAILY, CAP 11/12/18 Multivitamin with Minerals (Hair, Skin and Nails) 1 Each Tablet, 4 TAB PO DAILY, TAB 11/12/18 Glucosam/Chond/Collagen/Hyalur (Glucosamine Chondroitin Cap) 1 Each Capsule, 2 CAP PO DAILY, CAP 11/12/18 Fexofenadine HCl (Joseline Allergy) 180 Mg Tablet, 180 MG PO DAILY, TAB 11/12/18 Hydralazine HCl (Hydralazine HCl) 10 Mg Tablet, 10 MG PO TID, TAB 11/12/18 Furosemide (Furosemide) 40 Mg Tablet, 40 MG PO DAILY, TAB 11/12/18 Carvedilol (Carvedilol) 25 Mg Tablet, 25 MG PO BID, TAB 11/12/18 Atorvastatin Calcium (Atorvastatin Calcium) 40 Mg Tablet, 40 MG PO DAILY, TAB 11/12/18 Mv,Calcium,Min/Iron/Folic/Vitk (Multi For Her Tablet) 1 Tab Tab, 1 TAB PO QAM, TAB 09/07/16 Review of Systems General: Reports: Normal Appetite Constitutional: Denies: Chills, Fever, Night Sweats, Weight Loss Eyes: Denies: Pain, Vision change HEENT: Denies: Head Aches, Dysphagia, Sore Throat Skin: Denies: Rash, Lesions, Bruising Pulmonary: Reports: Dyspnea; Denies: Cough, Pleuritic Chest Pain Cardiovascular: Reports: Edema; Denies: Chest Pain, Palpitations Gastrointestinal: Denies: Nausea, Vomiting, Abdominal Pain, Diarrhea Genitourinary: Denies: Dysuria, Frequency, Incontinence Hematologic: Denies: Bruising, Petecchia, Enlarged Lymph Nodes Musculoskeletal: Denies: Neck pain, Back pain Neurological: Denies: Weakness, Numbness, Incoordination Psych: Reports: Mood Normal; Denies: Memory Issues, Thoughts of Self Harm Vital Signs Ht 59" Wt 180 BMI 37 P 80 RR 18 BP 138/78 O2 98% Pain 0 Fatigue 0 General Exam: Positive: Alert, Cooperative, No Acute Distress Eye Exam: Positive: PERRLA, EOMI ENT EXAM: Positive: Mucous membr. moist/pink, Pharynx Normal Neck Exam: Negative: Thyromegaly, Lymphadenopathy Chest Exam: Positive: Normal air movement, Wheezing (Right base); Negative: Rales, Rhonchi Heart Exam: Positive: Rate Normal, Regular Rhythm Abdomen Exam: Positive: Soft; Negative: Tenderness, Mass Extremity Exam: Positive: Edema; Negative: Tenderness Skin Exam: Positive: Nl turgor and temperature; Negative: Rash Neuro Exam: Positive: Normal Gait, Normal Speech, Cranial Nerves 3-12 NL Diagnostic and Laboratory Diagnostic Review Radiologic images, relevant labs and pathology reports were personally reviewed and discussed with Ms. Brito. Assessment and Plan Impression Ms. Brito is a 70 year old female with a history of former smoker with presumed RUL NSCLC [id number] stage IA2. Her lesion is centrally located and adjacent to the pulmonary artery and thus not amenable to biopsy. She is seen for empiric SBRT to address this lesion. Stage NSCLC RUL stage IB [id number] Performance Status ECOG 1 Plan We had an extensive discussion with Ms. Brito regarding the diagnosis at hand and available therapeutic options. She has a 1 cm lesion which has steadily grown since it was detected in [address] chest. This lesion is not amenable to any approach of biopsy. Given her excessive smoking history (70+ pack years), its serial growth, and hypermetabolism on PET-CT it is highly likely that it is an early stage NSCLC. I recommend empiric SBRT for this as biopsy has been deemed unsafe. As it is ultracentral by RTOG classification I would give 50-55 Gy in 5 fractions for this (per RTOG 0813 which established the safe dosing range for such tumors). For treatment I will use a 4DCT/ITV based approach as well as a proximal pulmona ry artery/bronchial PRV to steepen the gradient of dose fall off beyond the target. We discussed the logistics of receiving radiation therapy in detail including the need for a 1-time planning session. We reviewed the possible side effects of treatment including fatigue, pneumonitis, fibrosis, and atelectasis. After discussing the risks, benefits and alternatives to radiation therapy, Ms. Brito was amenable to pursuing radiotherapy. All questions were answered to the patient's satisfaction. We instructed the patient that if there were any questions,concerns or changes in clinical status in the interim to contact us. Recommendations SBRT to the RUL lesion 50-55 Gy in 5 fractions as above Simulation in the next week Billing Statement Total time of [38] minutes was spent preparing for the visit [3], obtaining HPI [3], examining the patient [3], reviewing diagnostic tests [4], discussing management options [15], coordinating care [2], and writing this note [8]. YIFAN SOLIS MD Jun 14, 2020 16:07
== END ==
LOC: M ONCR 13:51
PROVIDERS: ATTEND General Practice
DX: C34.11 Malignant neoplasm of upper lobe, right bronchus or lung (principal)

== ENCOUNTER 2020-06-24 10:29 | Outpatient (RCR) | payer MEDICARE | END 2020-07-01 | LOC: M ONCR 10:29 | PROVIDERS: ATTEND General Practice | DX: C34.11 Malignant neoplasm of upper lobe, right bronchus or lung (principal) ==

== ENCOUNTER 2020-07-15 11:59 | Outpatient (RCR) | payer MEDICARE | END 2020-08-01 | LOC: M ONCR 11:59 | PROVIDERS: ATTEND General Practice | DX: C34.11 Malignant neoplasm of upper lobe, right bronchus or lung (principal) ==

== ENCOUNTER → 2020-10-10 | Outpatient (CLI) | payer MEDICARE ==
[~2020-10-10] MED LIST changes: +OMEP40CA4 PO; -OMEP40CA97 PO
[2020-10-10 12:59] LABS: ALBUMIN 4.1 GM/DL (3.2-5.2); BILIRUBIN,TOTAL 0.4 MG/DL (0.2-1.0); CALCIUM LEVEL 8.9 MG/DL (8.8-10.2); CREATININE FOR GFR 1.09 MG/DL (0.55-1.30); GLOMERULAR FILTRATION RATE 52.5 (>39); TOTAL PROTEIN 7.8 GM/DL (6.4-8.2)
== END ==
LOC: M ONCR 11:22
PROVIDERS: ATTEND General Practice
DX: C34.11 Malignant neoplasm of upper lobe, right bronchus or lung (principal)

== ENCOUNTER → 2020-10-17 | Outpatient (CLI) | payer MEDICARE ==
[~2020-10-17] MED LIST changes: +ISOVUE-370 76% 100ML VIAL As Ordered ONE
--- NOTE | 2020-10-17 13:19 | REP ---
INDICATION: LUNG CA COMPARISON: Multiple the latest 06/08/2020 TECHNIQUE: Standard helical technique after the intravenous administration of 100 cc Isovue 370 FINDINGS: The mediastinum and pulmonary denisse are stable. No mass or adenopathy has developed. There no pleural or pericardial effusions. The imaged upper abdomen and imaged osseous structures are stable. Evaluation of the lung white shows complete resolution of the 1 cm sized nodule seen previously in the right upper lobe medially abutting the hilum. There are chronic basilar fibrotic changes status quo. No new abnormal nodules, masses, or opacities have developed. IMPRESSION: Lung field improvement as described above. No acute abnormalities have developed. Sign <Electronically signed by Perfecto Santiago > 10/17/20 [id number]
== END ==
LOC: M RAD 12:29
PROVIDERS: ATTEND General Practice
DX: C34.11 Malignant neoplasm of upper lobe, right bronchus or lung (principal)
CPT/HCPCS: 71260; Q9967

== ENCOUNTER → 2020-10-19 | Outpatient (CLI) | payer MEDICARE ==
[~2020-10-19] MED LIST changes: -ISOVUE-370 76% 100ML VIAL As Ordered ONE
--- NOTE | 2020-10-19 13:03 | RADONC ---
Radiation Oncology Hx/FUP Radiation Oncology Hx/FUP Date of Service: Oct 19, 2020 Pt Identifier Mariah Brito is a 70 year old female former smoker with presumed RUL NSCLC [id number] stage IA2. Her lesion is centrally located and adjacent to the pulmonary artery and thus not amenable to biopsy. She received empiric SBRT to this lesion 50 Gy in 5 fractions completed 07/15/20. Diagnosis/Treatment History Oncologic History 04/25/[address] chest with 3mm central RUL nodule. Grew on subsequent scans from 08/20/18 to 08/05/19. 03/24/20 CT chest Lesion grew to 1 cm 05/09/20 PET-CT lesion proven hypermetabolic, no distant mets or regional adenopathy 05/25/20 Per tumor board review lesion deemed too central to biopsy percutaneously or bronchoscopically 07/11/20-07/15/20 SBRT 50 Gy in 5 fractions Survivorship Test Due Next Last result Notes TSH, T4* 6m post-tx, then q1y N/A Carotid US* q10 y post-tx N/A Smoking cessation Assess annually if applicable N/A Quit previously Chest imaging As indicated, indefinite CT surveillance April 2021 10/17/20 negative Mammograms Min q1y, in eligible female patients 2021 Echocardiogram q10y post treatment if mediastinum treated N/A PFTs As indicated N/A CBC,CMP, Lipids q1y 2021 Interval History Notes that she has increased SUBRAMANIAN in recent months, she is seeing pulmonology later this week. She has gained weight wonders if this is contributing. She is on COPD controllers, has no cough, no hemoptysis. Appetite is good. No chest pain. Current Therapy Surveillance Stage RUL NSCLC [id number] stage IA2 Social History: 70+ pack year former smoker Drinks 3-4 drinks per day Allergies / Meds Allergies: Coded Allergies: erythromycin base (Verified Allergy, Severe, ANAPHYLAXIS, 11/12/18) MARY LOU Inhibitors (Verified Allergy, Unknown, WAS TOLD BY HER RELAY TESTER THIS IS RELATED TO ERYTHROMYCIN, 02/11/19) isosorbide (Verified Adverse Reaction, Mild, headache, 11/12/18) Home Meds Active Scripts Omeprazole (Omeprazole) 20 Mg Capsule., 20 MG PO DAILY, #30 TABS Prov:GENA BERMUDEZ MD 02/19/19 Spironolactone (Aldactone) 25 Mg Tablet, 25 MG PO QAM, #30 TAB Prov:GENA BERMUDEZ MD 02/19/19 Tizanidine HCl (Tizanidine HCl) 4 Mg Tablet, 4 MG PO QID PRN for SPASMS, #120 TAB Prov:GENA BERMUDEZ MD 02/19/19 Tramadol HCl (Tramadol HCl) 50 Mg Tablet, 50 MG PO Q4H PRN for pain MDD 300 mg, #30 TAB Prov:GENA BERMUDEZ MD 02/19/19 Hydralazine HCl (Hydralazine HCl) 10 Mg Tablet, 10 MG PO TID, #90 TAB Prov:GENA BERMUDEZ MD 02/19/19 Gabapentin (Gabapentin) 300 Mg Capsule, 600 MG PO TID, #180 CAP Prov:GENA BERMUDEZ MD 02/19/19 Furosemide (Furosemide) 40 Mg Tablet, 40 MG PO DAILY, #30 TAB Prov:GENA BERMUDEZ MD 02/19/19 Fexofenadine HCl (Fexofenadine HCl) 60 Mg Tablet, 180 MG PO DAILY, #90 TAB Prov:GENA BERMUDEZ MD 02/19/19 Duloxetine Hcl (Cymbalta) 30 Mg Capsule.dr, 60 MG PO DAILY, #60 TABS Prov:GENA BERMUDEZ MD 02/19/19 Ascorbic Acid (Vitamin C) 500 Mg Tablet, 1000 MG PO DAILY, #60 TAB Prov:GENA BERMUDEZ MD 02/19/19 Cholecalciferol (Vitamin D3) (Vitamin D3) 25 Mcg Tablet, 2000 UNITS PO DAILY, #30 TAB Prov:GENA BERMUDEZ MD 02/19/19 Carvedilol (Carvedilol) 12.5 Mg Tablet, 25 MG PO BID, #120 TAB Prov:GENA BERMUDEZ MD 02/19/19 Atorvastatin Calcium (Atorvastatin Calcium) 20 Mg Tablet, 40 MG PO DAILY, #30 TAB Prov:GENA BERMUDEZ MD 02/19/19 Reported Medications Docusate Sodium (Colace) 100 Mg Capsule, 100 MG PO BID, CAP STARTED AT [facility] 02/11/19 Acetaminophen (Tylenol) 325 Mg Tablet, 650 MG PO Q6H PRN for PAIN, TAB 02/11/19 Ascorbic Acid (Vitamin C) 500 Mg Tablet, 500 MG PO DAILY, TAB 02/11/19 Spironolactone (Spironolactone) 25 Mg Tablet, 25 MG PO DAILY, TAB 02/11/19 Calcium Carbonate (Calcium) 500 Mg Tablet, 500 MG PO BID, TAB 02/11/19 Cholecalciferol (Vitamin D3) (Vitamin D3) 1,000 Unit Tablet, 1000 UNIT PO DAILY, TAB 02/11/19 Omeprazole (Omeprazole) 20 Mg Capsule.dr, 20 MG PO DAILY, CAP 11/12/18 Multivitamin with Minerals (Hair, Skin and Nails) 1 Each Tablet, 4 TAB PO DAILY, TAB 11/12/18 Glucosam/Chond/Collagen/Hyalur (Glucosamine Chondroitin Cap) 1 Each Capsule, 2 CAP PO DAILY, CAP 11/12/18 Fexofenadine HCl (Joseline Allergy) 180 Mg Tablet, 180 MG PO DAILY, TAB 11/12/18 Hydralazine HCl (Hydralazine HCl) 10 Mg Tablet, 10 MG PO TID, TAB 11/12/18 Furosemide (Furosemide) 40 Mg Tablet, 40 MG PO DAILY, TAB 11/12/18 Carvedilol (Carvedilol) 25 Mg Tablet, 25 MG PO BID, TAB 11/12/18 Atorvastatin Calcium (Atorvastatin Calcium) 40 Mg Tablet, 40 MG PO DAILY, TAB 11/12/18 Mv,Calcium,Min/Iron/Folic/Vitk (Multi For Her Tablet) 1 Tab Tab, 1 TAB PO QAM, TAB 09/07/16 Review of Systems Review of Systems Constitutional: Reports: Fatigue; Denies: Chills, Fever, Weight Loss Eyes: Denies: Pain HEENT: Denies: Head Aches Skin: Denies: Rash Pulmonary: Reports: Dyspnea; Denies: Cough, Pleuritic Chest Pain Cardiovascular: Denies: Chest Pain, Palpitations, Orthopnea, Edema Gastrointestinal: Denies: Abdominal Pain, Diarrhea Hematologic: Denies: Bruising Musculoskeletal: Denies: Neck pain, Back pain Neurological: Denies: Weakness, Numbness Psych: Reports: Mood Normal Physical Examination Vital Signs Wt 180 lbs T 97.2 P 120 RR 18 BP 140/65 O2 97% Pain 0 Fatigue 0 General Exam: Alert, Cooperative, No Acute Distress Eye Exam: PERRLA, EOMI ENT EXAM: Atraumatic, Mucous membr. moist/pink Neck Exam: Supple; Negative: Lymphadenopathy Chest Exam: Clear to auscultation, Normal air movement (Quiet breath sounds throughout) Heart Exam: Rate Normal, Regular Rhythm Abdomen Exam: Soft; Negative: Tenderness Extremity Exam: Negative: Edema Skin Exam: Nl turgor and temperature Neuro Exam: Normal Gait, Normal Speech, Cranial Nerves 3-12 NL Psych Exam: Mental status NL Diagnostic and Laboratory Diagnostic Review Radiologic images, relevant labs and pathology reports were personally reviewed and discussed with Ms. Brito. Assessment and Plan Impression Assessment Ms. Brito is a 70 year old female former smoker with presumed RUL NSCLC [id number] stage IA2. Her lesion is centrally located and adjacent to the pulmonary artery and thus not amenable to biopsy. She received empiric SBRT to this lesion 50 Gy in 5 fractions completed 07/15/20. She has a radiographic complete response to SBRT. Shared this with her, she was pleased. She has no signs of late pulmonary toxicity. She does however note increased SUBRAMANIAN, which is likely due to her restrictive habitus and high BMI as well as underlying COPD. She has close pulmonary follow up for this. We discussed repeating surveillance CT chest in 6 months time. Performance Status ECOG [address] chest in 6 months follow up at that time Ms. Brito was encouraged to call with questions or concerns in the interim period. Billing Statement Total time of [25] minutes was spent preparing for the visit [1], obtaining HPI [5], examining the patient [3], reviewing diagnostic tests [4], discussing management options [5], coordinating care [1], and writing this note [6]. YIFAN SOLIS MD Oct 19, 2020 13:03
== END ==
LOC: M ONCR 10:49
PROVIDERS: ATTEND General Practice
DX: C34.11 Malignant neoplasm of upper lobe, right bronchus or lung (principal)

== ENCOUNTER → 2020-12-20 | Outpatient (CLI) | payer MEDICARE, OTHER ==
--- NOTE | 2020-12-20 12:54 | REPMRS ---
Patient History The patient states she had a clinical breast exam in December 2020. Patient is postmenopausal, has history of other cancer at age 70, has history of endometrial cancer at age 25, and is nulliparous. No known family history of cancer. Took unspecified hormones for 25 years. 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 [place] breast density is b. [facility] lifetime risk of breast cancer 4.0%. Patient states no breast complaints today. Patient has signed MRS History Sheet. Digital Woman Screen Mammo: December 20, 2020 - Exam #: [id number] Bilateral CC and MLO view(s) were taken. Technologist: Bettina Garber, Technologist Prior study comparison: December 17, 2019, bilateral digital woman screen mammo performed at [facility]. November 11, 2018, bilateral digital woman screen mammo performed at [facility]. FINDINGS: There are scattered fibroglandular densities. There has been no change in the appearance of the mammogram from the prior studies. There is a mild amount of residual fibroglandular tissue which is fairly symmetric. There is no interval development of dominant mass, architectural distortion, or clustered microcalcification suggestive of malignancy. Assessment: BI-RADS/ACR category 1 mammogram. Negative Mammogram. Recommendation Routine screening mammogram in 1 year (for women over age 40). This mammogram was interpreted with the aid of an FDA-approved computer-aided dectection system. Electronically Signed By: José Miguel Landin MD 12/20/20 [id number]
== END ==
LOC: M WHC 10:38
PROVIDERS: ATTEND Nurse Practitioner Women's Health
DX: Z12.31 Encounter for screening mammogram for malignant neoplasm of breast (principal); Z78.0 Asymptomatic menopausal state; Z85.89 Personal history of malignant neoplasm of other organs and systems; Z85.44 Personal history of malignant neoplasm of other female genital organs; Z92.29 Personal history of other drug therapy
CPT/HCPCS: 77063; 77067; G0463

== ENCOUNTER → 2021-04-06 | Outpatient (CLI) | payer MEDICARE, OTHER ==
[~2021-04-06] MED LIST changes: -LISI-898; +LISI5TAB11; +OMEP-173 PO; -OMEP-218 PO; +TIZA10TA PO; -TIZA4TAB4 PO
[2021-04-06 12:23] LABS: ALBUMIN 4.2 GM/DL (3.2-5.2); BILIRUBIN,TOTAL 0.4 MG/DL (0.2-1.0); CALCIUM LEVEL 9.6 MG/DL (8.8-10.2); CREATININE FOR GFR 1.21 MG/DL (0.55-1.30); GLOMERULAR FILTRATION RATE 46.6 (>39); POTASSIUM SERUM 4.2 MEQ/L (3.5-5.1); TOTAL PROTEIN 8.2 GM/DL (6.4-8.2)
== END ==
LOC: M ONCR 11:12
PROVIDERS: ATTEND General Practice
DX: C34.11 Malignant neoplasm of upper lobe, right bronchus or lung (principal)

== ENCOUNTER → 2021-04-13 | Outpatient (CLI) | payer MEDICARE ==
[~2021-04-13] MED LIST changes: +ISOVUE-370 76% 100ML VIAL As Ordered ONE
== END ==
LOC: M RAD 11:25
PROVIDERS: ATTEND General Practice
DX: C34.90 Malignant neoplasm of unspecified part of unspecified bronchus or lung (principal)
CPT/HCPCS: 71260; Q9967

== ENCOUNTER → 2021-05-03 | Outpatient (CLI) | payer MEDICARE ==
[~2021-05-03] MED LIST changes: -FEXO60CA PO; +FEXO60TA99 PO; -ISOVUE-370 76% 100ML VIAL As Ordered ONE
== END ==
LOC: M ONCR 08:58
PROVIDERS: ATTEND General Practice
DX: R91.1 Solitary pulmonary nodule (principal); R59.0 Localized enlarged lymph nodes; R06.09 Other forms of dyspnea; Z87.891 Personal history of nicotine dependence; Z88.1 Allergy status to other antibiotic agents; Z88.8 Allergy status to other drugs, medicaments and biological substances; Z92.3 Personal history of irradiation

== ENCOUNTER → 2021-05-08 | Outpatient (CLI) | payer MEDICARE | LOC: M PLARAD 09:51 | PROVIDERS: ATTEND General Practice | DX: C34.11 Malignant neoplasm of upper lobe, right bronchus or lung (principal) | CPT/HCPCS: 78815; A9552 ==

== ENCOUNTER 2021-05-23 10:21 | Outpatient (RCR) | payer MEDICARE ==
[~2021-05-23 10:21] MED LIST changes: +BIOT2500 PO; +INCR1INH IN; +MAGN400C PO; +NAPR220C14 PO; +SYMB16INH INH
[2021-06-01] MEDS ORDERED: ONDA-84 PO (14:26)
[2021-06-01] MEDS ORDERED: PROC10TA5 PO (14:26)
[2021-06-05] MEDS ORDERED: ALLE1TAB23 PO (11:22)
== END 2021-06-01 ==
LOC: M ONCR 10:21
PROVIDERS: ATTEND General Practice
DX: C34.11 Malignant neoplasm of upper lobe, right bronchus or lung (principal)

== ENCOUNTER → 2021-05-24 | Outpatient (CLI) | payer MEDICARE ==
[~2021-05-24] MED LIST changes: +LIDOCAINE 1% MDV 20ML VIAL As Ordered ONE; +MIDAZOLAM INJ 2MG/2ML VIAL (J2250 PER 1MG) As Ordered ONE; +NS 1,000 ML IV SCH; +ceFAZolin 2 GM/D5W 50 ML IV BAG (J0690 PER 500MG) As Ordered ONE; +ceFAZolin SOD 2 GM in IV 1 EA IV ONE; +diphenhydrAMINE 50MG/ML VIAL (J1200) As Ordered ONE; +fentaNYL 100 MCG/2 ML INJECTION As Ordered ONE
[2021-05-24 15:00] VITALS: BP 147/66
== END ==
LOC: M IRPRO 11:19
PROVIDERS: ATTEND Radiology Diagnostic Radiology
DX: C34.91 Malignant neoplasm of unspecified part of right bronchus or lung (principal); Z88.2 Allergy status to sulfonamides; Z88.8 Allergy status to other drugs, medicaments and biological substances
CPT/HCPCS: 36561; 99152; 99153; C1769; C1788; C1894; J0690; J1200; J1642; J1644; J2250; J3010

== ENCOUNTER → 2021-06-06 | Outpatient (POV) | payer MEDICARE ==
[~2021-06-06] VITALS: Ht 147.3 cm; Wt 85.0 kg
[~2021-06-06] MED LIST changes: +ALLE1TAB23 PO; -LIDOCAINE 1% MDV 20ML VIAL As Ordered ONE; -MIDAZOLAM INJ 2MG/2ML VIAL (J2250 PER 1MG) As Ordered ONE; -NS 1,000 ML IV SCH; +ONDA-84 PO; +PROC10TA5 PO; -ceFAZolin 2 GM/D5W 50 ML IV BAG (J0690 PER 500MG) As Ordered ONE; -ceFAZolin SOD 2 GM in IV 1 EA IV ONE; -diphenhydrAMINE 50MG/ML VIAL (J1200) As Ordered ONE; -fentaNYL 100 MCG/2 ML INJECTION As Ordered ONE
[2021-06-06 14:35] VITALS: BP 141/65
== END ==
LOC: M IRPOV 14:28
PROVIDERS: ATTEND Radiology Diagnostic Radiology
DX: Z45.2 Encounter for adjustment and management of vascular access device (principal); Z88.1 Allergy status to other antibiotic agents; Z88.8 Allergy status to other drugs, medicaments and biological substances

== ENCOUNTER 2021-06-30 10:24 | Outpatient (RCR) | payer MEDICARE ==
[~2021-06-30 10:24] MED LIST changes: +ALPR0.5T3 PO; +MAGICMW PO
[2021-07-07] MEDS ORDERED: MICO2CRE42 TOP (11:00)
== END 2021-07-01 ==
LOC: M ONCR 10:24
PROVIDERS: ATTEND General Practice
DX: C34.11 Malignant neoplasm of upper lobe, right bronchus or lung (principal)

== ENCOUNTER 2021-07-14 10:23 | Outpatient (RCR) | payer MEDICARE ==
[~2021-07-14 10:23] MED LIST changes: +MICO2CRE42 TOP
== END 2021-08-01 ==
LOC: M ONCR 10:23
PROVIDERS: ATTEND General Practice
DX: C34.11 Malignant neoplasm of upper lobe, right bronchus or lung (principal)

== ENCOUNTER → 2021-09-05 | Outpatient (CLI) | payer MEDICARE ==
[~2021-09-05] MED LIST changes: +GASTROGRAFIN SOLUTION 30ML (Q9963) As Ordered ONE; +ISOVUE-370 76% 100ML VIAL As Ordered ONE
== END ==
LOC: M RAD 07:48
PROVIDERS: ATTEND Internal Medicine Medical Oncology
DX: C34.91 Malignant neoplasm of unspecified part of right bronchus or lung (principal)
CPT/HCPCS: 71260; 74177; Q9963; Q9967

== ENCOUNTER → 2021-10-05 | Outpatient (CLI) | payer MEDICARE ==
[~2021-10-05] MED LIST changes: +FINA1TAB12; -GASTROGRAFIN SOLUTION 30ML (Q9963) As Ordered ONE; -ISOVUE-370 76% 100ML VIAL As Ordered ONE
== END ==
LOC: M PLAIMG 13:23
PROVIDERS: ATTEND Nurse Practitioner Family
DX: M54.16 Radiculopathy, lumbar region (principal); M51.36 Other intervertebral disc degeneration, lumbar region

== ENCOUNTER → 2021-10-18 | Outpatient (CLI) | payer MEDICARE ==
[~2021-10-18] MED LIST changes: +CIPR100T4 PO; +PRED10PA2 PO
== END ==
LOC: M CARPUL 08:52
PROVIDERS: ATTEND Internal Medicine Medical Oncology
DX: I50.9 Heart failure, unspecified (principal)

== ENCOUNTER 2021-10-19 11:01 | Emergency (ER) | payer MEDICARE ==
[~2021-10-19] VITALS: Ht 147.3 cm; Wt 82.0 kg
[~2021-10-19 11:01] MED LIST changes: -CIPR100T4 PO; -PRED10PA2 PO
[2021-10-19 12:27] LABS: BASO % 0.4 % (0.0-1.0); EOS % 0.6 % (0.0-3.0); HEMATOCRIT 40.6 % (36.0-47.0); HEMOGLOBIN 13.5 g/dl (12.0-15.5); LYMPH # 0.8 10^3/uL (1.5-5.0); LYMPH % 15.9 % (24.0-44.0); MEAN CORPUSCULAR HEMOGLOBIN 34.1 pg (27.0-33.0); MEAN CORPUSCULAR HGB CONC 33.3 g/dl (32.0-36.5); MEAN CORPUSCULAR VOLUME 102.5 fl (80.0-96.0); MONO # 0.6 10^3/uL (0.0-0.8); MONO % 12.1 % (2.0-8.0); NEUTROPHILS # 3.7 10^3/uL (1.5-8.5); NEUTROPHILS % 70.8 % (36.0-66.0); PLATELET COUNT, AUTOMATED 218 10^3/uL (150-450); RED BLOOD COUNT 3.96 10^6/uL (4.00-5.40); WHITE BLOOD COUNT 5.2 10^3/uL (4.0-10.0)
[2021-10-19 12:46] LABS: INR 0.91; PROTHROMBIN TIME 12.7 SECONDS (12.7-14.5)
[2021-10-19 12:47] LABS: PARTIAL THROMBOPLASTIN TIME 29.4 SECONDS (25.9-37.0)
[2021-10-19 12:58] LABS: CALCIUM LEVEL 9.5 MG/DL (8.8-10.2); CREATININE FOR GFR 1.09 MG/DL (0.55-1.30); GLOMERULAR FILTRATION RATE 52.4 (>39); POTASSIUM SERUM 4.7 MEQ/L (3.5-5.1)
[2021-10-19 12:59] LABS: ALBUMIN 3.9 GM/DL (3.2-5.2); BILIRUBIN,DIRECT 0.1 MG/DL (0.0-0.2); BILIRUBIN,TOTAL 0.4 MG/DL (0.2-1.0); TOTAL PROTEIN 7.8 GM/DL (6.4-8.2)
[2021-10-19 14:18] VITALS: BP 147/99
[2021-10-20] MEDS ORDERED: CIPR100T4 PO (13:09)
[2021-10-20] MEDS ORDERED: PRED10PA2 PO (13:49)
== END 2021-10-19 14:19 | disposition home or self-care (01) ==
LOC: M ED 11:01
DX: K62.5 Hemorrhage of anus and rectum (principal); I50.9 Heart failure, unspecified; C34.90 Malignant neoplasm of unspecified part of unspecified bronchus or lung; J44.9 Chronic obstructive pulmonary disease, unspecified

== ENCOUNTER → 2021-10-20 | Outpatient (REF) | payer MEDICARE ==
[~2021-10-20] MED LIST changes: +CIPR100T4 PO; +PRED10PA2 PO
== END ==
LOC: M LAB REF 09:32
PROVIDERS: ATTEND Physician Assistant
DX: R19.7 Diarrhea, unspecified (principal)

== ENCOUNTER → 2021-10-25 | Outpatient (CLI) | payer MEDICARE | LOC: M ONCR 14:38 | PROVIDERS: ATTEND General Practice | DX: C34.11 Malignant neoplasm of upper lobe, right bronchus or lung (principal); R59.0 Localized enlarged lymph nodes; Z92.3 Personal history of irradiation; Z92.21 Personal history of antineoplastic chemotherapy; Z87.891 Personal history of nicotine dependence; Z88.1 Allergy status to other antibiotic agents; Z88.8 Allergy status to other drugs, medicaments and biological substances; Z79.899 Other long term (current) drug therapy ==

== ENCOUNTER → 2021-12-13 | Outpatient (CLI) | payer MEDICARE ==
[~2021-12-13] MED LIST changes: +FARX1TAB3 PO; +FLUC10TA PO; +ISOVUE-370 76% 100ML VIAL As Ordered ONE; +NYST50SS; +PRED10TA2
== END ==
LOC: M RAD 16:29
PROVIDERS: ATTEND Nurse Practitioner
DX: C34.90 Malignant neoplasm of unspecified part of unspecified bronchus or lung (principal)
CPT/HCPCS: 71260; Q9967

== ENCOUNTER → 2022-02-16 | Outpatient (CLI) | payer MEDICARE ==
[~2022-02-16] MED LIST changes: -ISOVUE-370 76% 100ML VIAL As Ordered ONE
== END ==
LOC: M PLAIMG 10:29
PROVIDERS: ATTEND Internal Medicine Pulmonary Disease
DX: R91.8 Other nonspecific abnormal finding of lung field (principal)

== ENCOUNTER → 2022-03-07 | Outpatient (CLI) | payer MEDICARE ==
[~2022-03-07] MED LIST changes: +ISOVUE-370 76% 100ML VIAL As Ordered ONE; +NYST-38; -NYST50SS
== END ==
LOC: M RAD 12:36
PROVIDERS: ATTEND Nurse Practitioner
DX: C34.90 Malignant neoplasm of unspecified part of unspecified bronchus or lung (principal)
CPT/HCPCS: 71260; Q9967

== ENCOUNTER → 2022-03-08 | Outpatient (REF) | payer MEDICARE ==
[~2022-03-08] MED LIST changes: -ISOVUE-370 76% 100ML VIAL As Ordered ONE
== END ==
LOC: M LAB REF 15:37
PROVIDERS: ATTEND Family Medicine
DX: R19.7 Diarrhea, unspecified (principal)

== ENCOUNTER → 2022-04-26 | Outpatient (CLI) | payer MEDICARE | LOC: M ONCR 14:07 | PROVIDERS: ATTEND Specialist | DX: C34.11 Malignant neoplasm of upper lobe, right bronchus or lung (principal); R06.09 Other forms of dyspnea; Z79.51 Long term (current) use of inhaled steroids; Z79.84 Long term (current) use of oral hypoglycemic drugs; Z79.899 Other long term (current) drug therapy; Z87.891 Personal history of nicotine dependence; Z88.1 Allergy status to other antibiotic agents; Z88.8 Allergy status to other drugs, medicaments and biological substances; Z92.21 Personal history of antineoplastic chemotherapy; Z92.25 Personal history of immunosuppression therapy; Z92.3 Personal history of irradiation ==

== ENCOUNTER → 2022-07-26 | Outpatient (CLI) | payer MEDICARE ==
[~2022-07-26] MED LIST changes: +ALBU8.5H; +GASTROGRAFIN SOLUTION 30ML As Ordered ONE; +ISOVUE-370 76% 100ML VIAL As Ordered ONE
== END ==
LOC: M RAD 11:29
PROVIDERS: ATTEND Internal Medicine Medical Oncology
DX: C34.90 Malignant neoplasm of unspecified part of unspecified bronchus or lung (principal)
CPT/HCPCS: 71260; 74177; Q9963; Q9967

== ENCOUNTER → 2022-10-01 | Outpatient (CLI) | payer MEDICARE ==
[~2022-10-01] MED LIST changes: -GASTROGRAFIN SOLUTION 30ML As Ordered ONE; -ISOVUE-370 76% 100ML VIAL As Ordered ONE; +SPIR50TA4
== END ==
LOC: M PLARAD 12:40
PROVIDERS: ATTEND Internal Medicine Medical Oncology
DX: C34.11 Malignant neoplasm of upper lobe, right bronchus or lung (principal)
CPT/HCPCS: 78815; A9552

== ENCOUNTER → 2023-01-14 | Outpatient (CLI) | payer MEDICARE, OTHER ==
[2023-01-14 13:05] LABS: BASO % 0.6 % (0.0-1.0); EOS # 0.1 10^3/uL (0.0-0.5); EOS % 2.5 % (0.0-3.0); HEMATOCRIT 41.4 % (36.0-47.0); HEMOGLOBIN 14.1 g/dl (12.0-15.5); LYMPH # 0.8 10^3/uL (1.5-5.0); LYMPH % 16.3 % (24.0-44.0); MEAN CORPUSCULAR HEMOGLOBIN 34.1 pg (27.0-33.0); MEAN CORPUSCULAR HGB CONC 34.1 g/dl (32.0-36.5); MONO # 0.6 10^3/uL (0.0-0.8); MONO % 12.8 % (2.0-8.0); NEUTROPHILS # 3.2 10^3/uL (1.5-8.5); NEUTROPHILS % 67.6 % (36.0-66.0); PLATELET COUNT, AUTOMATED 255 10^3/uL (150-450); RED BLOOD COUNT 4.14 10^6/uL (4.00-5.40); WHITE BLOOD COUNT 4.8 10^3/uL (4.0-10.0)
[2023-01-14 13:11] LABS: APPEARANCE, URINE HAZY (CLEAR); BACTERIA, URINE AUTO NEGATIVE (NEGATIVE); BILIRUBIN, URINE AUTO NEGATIVE (NEGATIVE); BLOOD, URINE BLOOD NEGATIVE (NEGATIVE); COLOR, URINE YELLOW (YELLOW); GLUCOSE, URINE (UA) AUTO 3+ mg/dL (NEGATIVE); KETONE, URINE AUTO NEGATIVE (NEGATIVE); LEUKOCYTE ESTERASE, URINE AUTO NEGATIVE (NEGATIVE); MUCUS, URINE SMALL (NEGATIVE); NITRITE, URINE AUTO NEGATIVE (NEGATIVE); PROTEIN, URINE AUTO NEGATIVE (NEGATIVE); RBC, URINE AUTO 0 /HPF (0-3); SPECIFIC GRAVITY URINE AUTO 1.015 (1.002-1.035); SQUAMOUS EPITHELIAL CELL UR AU 1 /HPF (0-6); UROBILINOGEN, URINE AUTO 0.2 mg/dL (0.0-2.0); WBC, URINE AUTO 2 /HPF (0-3)
[2023-01-14 13:20] LABS: INR 1.09; PROTHROMBIN TIME 13.8 SECONDS (12.5-14.5)
[2023-01-14 13:36] LABS: ALBUMIN 3.7 G/DL (3.2-5.2); BILIRUBIN,TOTAL 0.4 MG/DL (0.3-1.2); CALCIUM LEVEL 9.5 MG/DL (8.3-10.6); CREATININE FOR GFR 1.33 MG/DL (0.55-1.30); GLOMERULAR FILTRATION RATE 41.5 (>39); POTASSIUM SERUM 3.8 MMOL/L (3.5-5.1); TOTAL PROTEIN 6.7 G/DL (5.7-8.2)
[2023-01-14 13:39] LABS: TOTAL 25(OH) VITAMIN D 74.5 NG/ML (20.0-100.0)
== END ==
LOC: M PLALAB 10:38
PROVIDERS: ATTEND Orthopaedic Surgery
DX: S43.004D Unspecified dislocation of right shoulder joint, subsequent encounter (principal); W18.30XD Fall on same level, unspecified, subsequent encounter

== ENCOUNTER 2023-08-19 08:25 | Day surgery (SDC) | payer MEDICARE ==
[~2023-08-19] VITALS: Ht 152.4 cm; Wt 52.5 kg
[~2023-08-19 08:25] MED LIST changes: -ALLE1TAB23 PO; +CVS-161 PO; +DIPH-435 PO; +FEXO-157 PO; -FINA1TAB12; +FINA1TAB4; +HYDR-161 PO; -HYDR10TAB PO; +LR 1,000 ML IV SCH
[2023-08-19] MEDS: TETRACAINE 0.5% OPHTH SOLN 4ML OS SCH (09:57)
[2023-08-19] MEDS: ATROPINE SULFATE 1% OPHTH SOLN 2ML BTL OS SCH (09:58)
[2023-08-19] MEDS: PHENYLEPHRINE 2.5% OPHTH SOL 2ML OS SCH (09:58)
[2023-08-19] MEDS: FLURBIPROFEN 0.03% OPHTH SOLN 2.5 ML OS SCH (09:58)
[2023-08-19] MEDS ORDERED: fentaNYL 100 MCG/2 ML INJECTION As Ordered ONE (11:02)
[2023-08-19] MEDS ORDERED: MIDAZOLAM INJ 2MG/2ML VIAL As Ordered ONE (11:02)
[2023-08-19] MEDS: LIDOCAINE 1% SDV 5ML VIAL As Ordered ONE (11:04)
[2023-08-19] MEDS: CEFUROXIME 1MG/0.1ML INTRACAMERAL INJ As Ordered ONE (11:04)
[2023-08-19 11:30] VITALS: BP 147/63; TEMP 97.6; O2SAT 95
== END 2023-08-19 11:49 | disposition home or self-care (01) ==
LOC: M SDC 08:25
PROVIDERS: ATTEND Ophthalmology
DX: H25.12 Age-related nuclear cataract, left eye (principal); H27.8 Other specified disorders of lens; I10 Essential (primary) hypertension; E78.00 Pure hypercholesterolemia, unspecified; J43.9 Emphysema, unspecified; Z79.899 Other long term (current) drug therapy; Z88.8 Allergy status to other drugs, medicaments and biological substances; Z88.1 Allergy status to other antibiotic agents; Z85.42 Personal history of malignant neoplasm of other parts of uterus; Z87.891 Personal history of nicotine dependence; Z90.710 Acquired absence of both cervix and uterus
CPT/HCPCS: 66982; J0697; J2250; J3010; L8699; V2632

== ENCOUNTER → 2024-03-17 | Outpatient (CLI) | payer MEDICARE ==
[~2024-03-17] MED LIST changes: -FEXO-157 PO; +FEXO-63 PO; +GABA-1172 PO; -GABA-282 PO; -LR 1,000 ML IV SCH
[2024-03-17 15:07] LABS: THYROID STIMULATING HORMONE 1.175 uIU/ML (0.55-4.78)
[2024-03-17 15:11] LABS: FOLATE 14.9 NG/ML (>5.4)
== END ==
LOC: M PLALAB 11:16
PROVIDERS: ATTEND Psychiatry & Neurology Neurology
DX: E53.8 Deficiency of other specified B group vitamins (principal); R41.3 Other amnesia

== ENCOUNTER → 2024-05-01 | Outpatient (CLI) | payer MEDICARE ==
[2024-05-01 14:10] LABS: HEMATOCRIT 41.5 % (36.0-47.0); HEMOGLOBIN 14.1 g/dl (12.0-15.5); MEAN CORPUSCULAR HEMOGLOBIN 34.6 pg (27.0-33.0); PLATELET COUNT, AUTOMATED 193 10^3/uL (150-450); RED BLOOD COUNT 4.07 10^6/uL (4.00-5.40); WHITE BLOOD COUNT 4.1 10^3/uL (4.0-10.0)
[2024-05-01 14:16] LABS: ALBUMIN 3.6 G/DL (3.2-5.2); ALKALINE PHOSPHATASE 86 U/L (35-104); ALT/SGPT 47 U/L (7.0-40); AST/SGOT 39 U/L (<34); BILIRUBIN,TOTAL 0.6 MG/DL (0.3-1.2); BLOOD UREA NITROGEN 10 MG/DL (9-23); CALCIUM LEVEL 9.2 MG/DL (8.3-10.6); CARBON DIOXIDE LEVEL 35 MMOL/L (20-31); CHLORIDE LEVEL 99 MMOL/L (98-107); CHOLESTEROL LEVEL 229 MG/DL (<200); CHOLESTEROL RISK RATIO 2.11 (<5); CREATININE FOR GFR 0.75 MG/DL (0.55-1.30); GLOMERULAR FILTRATION RATE > 60.0 (>39); GLUCOSE, FASTING 82 MG/DL (74-106); HDL CHOLESTEROL 108.4 MG/DL (>40); LDL CHOLESTEROL 90.2 MG/DL (<100); NON-HDL-C 120.6 MG/DL; POTASSIUM SERUM 4.4 MMOL/L (3.5-5.1); SODIUM LEVEL 140 MMOL/L (136-145); TOTAL PROTEIN 6.8 G/DL (5.7-8.2); TRIGLYCERIDES LEVEL 152 MG/DL (<150)
== END ==
LOC: M WUC 10:07
PROVIDERS: ATTEND Nurse Practitioner Family
DX: I50.42 Chronic combined systolic (congestive) and diastolic (congestive) heart failure (principal)

== ENCOUNTER → 2024-10-19 | Outpatient (CLI) | payer MEDICARE ==
[2024-10-19 13:25] LABS: APPEARANCE, URINE CLEAR (CLEAR); BACTERIA, URINE AUTO NEGATIVE (NEGATIVE); BILIRUBIN, URINE AUTO NEGATIVE (NEGATIVE); BLOOD, URINE BLOOD NEGATIVE (NEGATIVE); GLUCOSE, URINE (UA) AUTO 2+ mg/dL (NEGATIVE); KETONE, URINE AUTO NEGATIVE (NEGATIVE); LEUKOCYTE ESTERASE, URINE AUTO NEGATIVE (NEGATIVE); NITRITE, URINE AUTO NEGATIVE (NEGATIVE); PROTEIN, URINE AUTO NEGATIVE (NEGATIVE); RBC, URINE AUTO 0 /HPF (0-3); SPECIFIC GRAVITY URINE AUTO 1.005 (1.002-1.035); SQUAMOUS EPITHELIAL CELL UR AU 0 /HPF (0-6); UROBILINOGEN, URINE AUTO 0.2 mg/dL (0.0-2.0); WBC, URINE AUTO 0 /HPF (0-3)
[2024-10-19 13:33] LABS: BASO # 0.0 10^3/uL (0.0-0.2); BASO % 1.0 % (0.0-1.0); EOS # 0.0 10^3/uL (0.0-0.5); EOS % 1.0 % (0.0-3.0); LYMPH # 0.9 10^3/uL (1.5-5.0); LYMPH % 22.6 % (24.0-44.0); MONO # 0.5 10^3/uL (0.0-0.8); MONO % 13.1 % (2.0-8.0); NEUTROPHILS # 2.4 10^3/uL (1.5-8.5); NEUTROPHILS % 62.0 % (36.0-66.0); PLATELET COUNT, AUTOMATED 203 10^3/uL (150-450)
[2024-10-19 14:04] LABS: ALT/SGPT 17.0 U/L (7.0-40); AST/SGOT 25.0 U/L (<34); CALCIUM LEVEL 9.8 MG/DL (8.3-10.6); CARBON DIOXIDE LEVEL 34.0 MMOL/L (20-31); CHLORIDE LEVEL 94.0 MMOL/L (98-107); CREATININE FOR GFR 0.97 MG/DL (0.55-1.30); GLOMERULAR FILTRATION RATE 60.6 (>39); POTASSIUM SERUM 4.5 MMOL/L (3.5-5.1); SODIUM LEVEL 137.0 MMOL/L (136-145)
== END ==
LOC: M PLALAB 09:30
PROVIDERS: ATTEND Family Medicine
DX: R63.4 Abnormal weight loss (principal)

== ENCOUNTER 2025-01-17 13:17 | Inpatient (IN) | payer MEDICARE ==
[2025-01-17] MEDS: LIDOCAINE 2% 5 ML JELLY UROJET TOP ONE (14:25)
[2025-01-17 15:04] LABS: VENOUS BASE EXCESS 1.6 (-2.0-2.0); VENOUS HCO3 28.1 MMOL/L (23.0-27.0); VENOUS O2 SATURATION 74.9 % (60.0-80.0); VENOUS PARTIAL PRESSURE CO2 51.5 mmHg (38.0-50.0); VENOUS PARTIAL PRESSURE O2 40.6 mmHg (30.0-50.0); VENOUS PH 7.354 UNITS (7.330-7.430); VENOUS STANDARD HCO3 25.3 MMOL/L; VENOUS TOTAL CO2 29.6 MMOL/L (24.0-28.0)
[2025-01-17 15:08] LABS: BASO # 0.0 10^3/uL (0.0-0.2); BASO % 0.4 % (0.0-1.0); EOS # 0.1 10^3/uL (0.0-0.5); EOS % 0.7 % (0.0-3.0); LYMPH # 0.7 10^3/uL (1.5-5.0); LYMPH % 10.0 % (24.0-44.0); MONO # 0.8 10^3/uL (0.0-0.8); MONO % 10.5 % (2.0-8.0); NEUTROPHILS # 5.6 10^3/uL (1.5-8.5); NEUTROPHILS % 78.0 % (36.0-66.0); PLATELET COUNT, AUTOMATED 184 10^3/uL (150-450)
[2025-01-17 15:14] LABS: KETONE, URINE AUTO RFX NEGATIVE (NEGATIVE); LEUKOCYTE ESTERASE UR AUTO RFX NEGATIVE (NEGATIVE); MUCUS, URINE RFX SMALL (NEGATIVE); NITRITE, URINE AUTO RFX NEGATIVE (NEGATIVE); RBC, URINE AUTO RFX 0 /HPF (0-3); SQUAM EPITHELIAL CELL UR AURFX 0 /HPF (0-6); WBC, URINE AUTO RFX 0 /HPF (0-3)
[2025-01-17] MEDS: IPRATROPIUM 0.5 MG/ALBUTEROL 2.5 MG INH SOL UD 3 ML NEB ONE (15:26)
[2025-01-17 15:36] LABS: AMPHETAMINES LEVEL URINE NEGATIVE (NEGATIVE); BARBITURATES URINE NEGATIVE (NEGATIVE); BENZODIAZEPINES URINE NEGATIVE (NEGATIVE); CANNABINOIDS URINE NEGATIVE (NEGATIVE); METHADONE URINE NEGATIVE (NEGATIVE); OPIATES URINE NEGATIVE (NEGATIVE); PHENCYCLIDINE URINE NEGATIVE (NEGATIVE)
[2025-01-17 15:37] LABS: ETHYL ALCOHOL (ETHANOL) < 0.003 % (0.000-0.010)
[2025-01-17 15:38] LABS: CK-MB VALUE MASS 15.1 NG/ML (<3.6); SALICYLATE LEVEL < 3.0 MG/DL (<30)
[2025-01-17 15:40] LABS: COCAINE METABOLITE URINE NEGATIVE (NEGATIVE)
[2025-01-17 15:43] LABS: ALT/SGPT 43 U/L (7.0-40); AST/SGOT 87 U/L (<34); CALCIUM LEVEL 8.6 MG/DL (8.3-10.6); CARBON DIOXIDE LEVEL 27 MMOL/L (20-31); CHLORIDE LEVEL 105 MMOL/L (98-107); CREATININE FOR GFR 0.88 MG/DL (0.55-1.30); GLOMERULAR FILTRATION RATE 68.1 (>39); POTASSIUM SERUM 4.2 MMOL/L (3.5-5.1); SODIUM LEVEL 142 MMOL/L (136-145)
[2025-01-17] MEDS: TETANUS/DIPHTH/ACEL. PERTUSSIS 0.5 ML SYR IM.IMMUN ONE (15:50)
[2025-01-17 15:58] LABS: CPK CREATINE PHOSPHOKINASE 1591 U/L (34-145); MB/CK RELATIVE INDEX 0.94 (< OR =4)
[2025-01-17] MEDS: NS (Normal Saline) 0.9% 1,000 ML IV ONE (16:15)
[2025-01-17] MEDS ORDERED: FURO80TA2 PO (16:47)
[2025-01-17] MEDS ORDERED: SERT50TA29 PO (16:55)
[2025-01-17] MEDS ORDERED: ARIC1TAB PO (17:09)
[2025-01-17] MEDS ORDERED: MEMA10TA PO (17:09)
[2025-01-17] MEDS ORDERED: D32000CA PO (17:11)
[2025-01-17] MEDS ORDERED: HOME MED LIST COMPLETE! XX SCH (17:15)
[2025-01-17 17:29] LABS: CK-MB VALUE MASS 12.3 NG/ML (<3.6)
[2025-01-17 17:42] LABS: CPK CREATINE PHOSPHOKINASE 1366.0 U/L (34-145); MB/CK RELATIVE INDEX 0.9 (< OR =4)
[2025-01-17] MEDS ORDERED: ISOVUE-370 76% 100 ML VIAL As Ordered ONE (19:22)
[2025-01-17] MEDS: SYMBICORT 160/4.5MCG INHALER 6GM INH SCH (20:00)
[2025-01-17 21:00] VITALS: BP 168/78; TEMP 98.6; O2SAT 94
[2025-01-17] MEDS: LR 1,000 ML IV SCH (21:15)
[2025-01-17 22:00] VITALS: BP_SYST 151; BP_SYST 158; BP_SYST 162; BP_DIAS 65; BP_DIAS 68
[2025-01-17] MEDS: MEMANTINE 5 MG TABLET PO SCH (22:03)
[2025-01-17] MEDS: THIAMINE 100 MG TAB PO SCH (22:04)
[2025-01-18] VITALS (8 sets, daily range): BP systolic 140–159; BP diastolic 65–73; TEMP 98.1–98.5; O2SAT 93–96
[2025-01-18 07:02] LABS: PLATELET COUNT, AUTOMATED 186 10^3/uL (150-450)
[2025-01-18] MEDS: TIOTROPIUM BROM 2.5MCG/ACTUATION 4GM INH INH SCH (07:40)
[2025-01-18 07:58] LABS: ALT/SGPT 44.0 U/L (7.0-40); AST/SGOT 81.0 U/L (<34); CALCIUM LEVEL 8.5 MG/DL (8.3-10.6); CARBON DIOXIDE LEVEL 26.0 MMOL/L (20-31); CHLORIDE LEVEL 106.0 MMOL/L (98-107); CPK CREATINE PHOSPHOKINASE 1348.0 U/L (34-145); CREATININE FOR GFR 0.78 MG/DL (0.55-1.30); GLOMERULAR FILTRATION RATE 78.7 (>39); POTASSIUM SERUM 4.6 MMOL/L (3.5-5.1); SODIUM LEVEL 140.0 MMOL/L (136-145)
[2025-01-18] MEDS: SERTRALINE HCL 50 MG TAB PO SCH (09:26)
[2025-01-18] MEDS: DONEPEZIL 5 MG TAB PO SCH (09:27)
[2025-01-18] MEDS: HEPARIN SOD 5000 UNITS/ML 1 ML VIAL/SYRINGE SC SCH (09:29)
[2025-01-19] VITALS (8 sets, daily range): BP systolic 144–170; BP diastolic 66–82; TEMP 97.3–98.6; O2SAT 92–96
[2025-01-19 07:04] LABS: PLATELET COUNT, AUTOMATED 190 10^3/uL (150-450)
[2025-01-19 07:42] LABS: ALT/SGPT 73.0 U/L (7.0-40); AST/SGOT 110.0 U/L (<34); CALCIUM LEVEL 8.3 MG/DL (8.3-10.6); CARBON DIOXIDE LEVEL 26.0 MMOL/L (20-31); CHLORIDE LEVEL 106.0 MMOL/L (98-107); CPK CREATINE PHOSPHOKINASE 1332.0 U/L (34-145); CREATININE FOR GFR 0.78 MG/DL (0.55-1.30); GLOMERULAR FILTRATION RATE 78.7 (>39); POTASSIUM SERUM 4.2 MMOL/L (3.5-5.1); SODIUM LEVEL 142.0 MMOL/L (136-145)
[2025-01-19] MEDS: TUBERCULIN PPD 5 UNITS/0.1 ML ID ONE (16:43)
[2025-01-19] MEDS: amLODIPine 5 MG TAB PO SCH (19:28)
[2025-01-20 00:12] VITALS: BP 141/60; TEMP 97.9; O2SAT 93
[2025-01-20 05:34] VITALS: BP 142/78; TEMP 97.8; O2SAT 95
[2025-01-20 05:55] LABS: PLATELET COUNT, AUTOMATED 178 10^3/uL (150-450)
[2025-01-20 06:17] LABS: CPK CREATINE PHOSPHOKINASE 1181.0 U/L (34-145)
[2025-01-20 06:18] LABS: ALT/SGPT 60.0 U/L (7.0-40); AST/SGOT 88.0 U/L (<34); CALCIUM LEVEL 8.0 MG/DL (8.3-10.6); CARBON DIOXIDE LEVEL 27.0 MMOL/L (20-31); CHLORIDE LEVEL 107.0 MMOL/L (98-107); CREATININE FOR GFR 0.78 MG/DL (0.55-1.30); GLOMERULAR FILTRATION RATE 78.7 (>39); POTASSIUM SERUM 3.9 MMOL/L (3.5-5.1); SODIUM LEVEL 143.0 MMOL/L (136-145)
[2025-01-20 08:00] VITALS: BP 158/67; TEMP 98.1; O2SAT 94
[2025-01-20 12:00] VITALS: BP 126/60; TEMP 97.6; O2SAT 95
[2025-01-20 16:00] VITALS: BP 154/70; TEMP 97.9; O2SAT 95
[2025-01-20 20:15] VITALS: BP 158/78; TEMP 98; O2SAT 94
[2025-01-20] MEDS: amLODIPine 5 MG TAB PO SCH (21:37)
[2025-01-21 00:36] VITALS: BP 150/80; TEMP 98.2; O2SAT 92
[2025-01-21 05:33] VITALS: BP 150/76; TEMP 98; O2SAT 93
[2025-01-21] MEDS: **hydrALAZINE** 10 MG TAB PO SCH (06:00)
[2025-01-21 08:00] VITALS: BP 143/67; TEMP 98.1; O2SAT 95
[2025-01-21 12:00] VITALS: BP 112/54; TEMP 97.9; O2SAT 94
[2025-01-21] MEDS: PPD DOCUMENTATION ENTRY MISC XX SCH (12:50)
[2025-01-22 04:12] VITALS: BP 131/62; TEMP 98.2; O2SAT 93
[2025-01-22] MEDS: TUBERCULIN PPD 5 UNITS/0.1 ML ID ONE (13:39)
[2025-01-23 03:25] VITALS: BP 132/60; TEMP 97; O2SAT 92
[2025-01-23] MEDS: ACETAMINOPHEN 325 MG TAB PO PRN (04:49)
[2025-01-24 03:45] VITALS: BP 152/64; TEMP 98.4; O2SAT 92
[2025-01-24] MEDS: PPD DOCUMENTATION ENTRY MISC XX ONE (13:17)
[2025-01-25 04:17] VITALS: BP 127/60; TEMP 97.4; O2SAT 96
[2025-01-25] MEDS ORDERED: AMLO1TAB24 PO (08:54)
[2025-01-25 11:22] VITALS: BP 131/60
== END 2025-01-25 12:31 | disposition home health service (06) | DRG 557 ==
LOC: EDBD 13:17 → M ED 13:17 → M ED INP 19:16 → M MSPAV 21:05
PROVIDERS: ADMIT Student in an Organized Health Care Education/Training Program; ATTEND Student in an Organized Health Care Education/Training Program
PROC: B246ZZZ Ultrasonography of Right and Left Heart (ICD-10-PCS; principal; 2025-01-18)
DX: M62.82 Rhabdomyolysis (principal); G93.41 Metabolic encephalopathy; I50.22 Chronic systolic (congestive) heart failure; I11.0 Hypertensive heart disease with heart failure; K21.9 Gastro-esophageal reflux disease without esophagitis; J44.9 Chronic obstructive pulmonary disease, unspecified; R55 Syncope and collapse; J43.9 Emphysema, unspecified; E78.5 Hyperlipidemia, unspecified; M19.90 Unspecified osteoarthritis, unspecified site; R41.89 Other symptoms and signs involving cognitive functions and awareness; Z79.899 Other long term (current) drug therapy; Z88.1 Allergy status to other antibiotic agents; Z88.8 Allergy status to other drugs, medicaments and biological substances; Z92.21 Personal history of antineoplastic chemotherapy; Z92.3 Personal history of irradiation; Z85.118 Personal history of other malignant neoplasm of bronchus and lung

== ENCOUNTER → 2025-02-10 | Outpatient (REF) | payer MEDICARE ==
[~2025-02-10] MED LIST changes: +AMLO1TAB24 PO; +ARIC1TAB PO; +D32000CA PO; +FURO80TA2 PO; +MEMA10TA PO; +SERT50TA29 PO
[2025-02-10 12:57] LABS: CPK CREATINE PHOSPHOKINASE 62.0 U/L (34-145)
[2025-02-10 12:59] LABS: ALT/SGPT 16.0 U/L (7.0-40); AST/SGOT 15.0 U/L (<34); CALCIUM LEVEL 8.6 MG/DL (8.3-10.6); CARBON DIOXIDE LEVEL 29.0 MMOL/L (20-31); CHLORIDE LEVEL 106.0 MMOL/L (98-107); CREATININE FOR GFR 0.92 MG/DL (0.55-1.30); GLOMERULAR FILTRATION RATE 64.5 (>39); POTASSIUM SERUM 5.1 MMOL/L (3.5-5.1); SODIUM LEVEL 140.0 MMOL/L (136-145)
== END ==
LOC: M SHH 12:07
PROVIDERS: ATTEND Family Medicine
DX: M62.82 Rhabdomyolysis (principal)